=== PATIENT | female | born 1945 | race African-American/Black ===

== ENCOUNTER 2016-12-16 08:36 | Inpatient (IN) ==
--- NOTE | 2016-12-16 09:41 | Emergency Department Note ---
Teodoro Randall Manpreet, am scribing for, and in the presence of, Singh Qureshi MD 09: 34. Kiera Randall James D, MD, personally performed the services described in this documentation, ascribed by Michael Valerio in my presence, and it is both accurate and complete 940 . Arrival - Arrival Chief Complaint: Weakness Stated Complaint: weakness ED Nursing Triage Note: Brought in per EMS from home with c/o generalized weakness onset this am. c/o left sided headache "for awhile". Daughter reports patient was unable to stand up at home this am. c/o left sided weakness-- chronic per daughter due to history of CVA. AAO x3, answering all questions appropriately. Mode of Arrival: Stretcher Limitations: No Limitations Source: Family, Old Records Reviewed, RN Notes Reviewed Time Seen by Provider: 12/16/16 08:59 - History of Present Illness HPI Narrative: Pt is a 71 y/o female with hx of Pacemaker, CVA, and TIA who presents to the ED c/o generalized weakness onset this am and left sided headache for awhile. Pt is accompanied by her daughter who states the PT was unable to stand up this morning, but is in her normal state. Pt takes her HTN medications and is UTD. The daughter states they received a saline solution on the for her sinuses because she thought her WALLER was due to sinuses. Pt saw Dr. López last week for her sinuses and was planning to see Dr. Daniel Mcgrath, her PCP, today, but onset of symptoms prompted them to the ED. No other complaints reported in the ED. Onset (ago): hour(s) Consistency: constant Severity: moderate Date of Last Menstrual Period: PM Allergies/Adverse Reactions: Allergies Allergy/AdvReac Type Severity Reaction Status Date / Time Penicillins Allergy ITCHING Verified 12/16/16 08:47 Home Medications: Home Medications Medication Instructions Recorded Confirmed Type Atorvastatin [Lipitor] 20 mg PO BEDTIME 04/25/15 12/12/16 History Cetirizine Tab [ZyrTEC Tab] 10 mg PO DAILY 04/25/15 12/12/16 History Cyanocobalamin (Vitamin B-12) 1,000 mcg IM Q30D 04/25/15 12/12/16 History [Liquid B12] Furosemide Tab [Lasix Tab] 40 mg PO BID 04/25/15 12/12/16 History HYDROcodone/ACETAMIN 5-325 [[place] 1 tablet PO Q6H PRN 04/25/15 12/12/16 History 5-325] Magnesium Oxide [Magox 400] 400 mg PO DAILY 04/25/15 12/12/16 History Montelukast Tab [Singulair Tab] 10 mg PO BEDTIME 04/25/15 12/12/16 History Omeprazole 20 mg PO DAILY 04/25/15 12/12/16 History Sotalol HCl [Betapace AF] 160 mg PO BID 04/25/15 12/12/16 History Warfarin [Coumadin] 2 mg PO SUTUWETHSA 04/25/15 12/12/16 History dilTIAZem HCl [Diltiazem HCl] 60 mg PO TID W/MEALS 04/25/15 12/12/16 History metOLazone [Metolazone] 2.5 mg PO MOFR 04/25/15 12/12/16 History predniSONE [[place]] 1 mg PO TID 04/25/15 12/12/16 History sulfaSALAzine [Sulfasalazine] 1,000 mg PO BID 04/25/15 12/12/16 History Adalimumab [Humira Pen] 40 mg SUBCUT Q14D 04/22/16 12/12/16 History Calcium (Carb)/Vit D 500-200 1 tablet PO DAILY 04/22/16 12/12/16 History [Oscal 500 + D] Fluticasone 50 Mcg Nasal [place] 1 spray BOTH NARES DAILY PRN 04/22/16 12/12/16 History [Flonase Nasal [place]] Lisinopril 10 mg PO DAILY 04/22/16 12/12/16 History Potassium Chloride Cap/Tab [K Dur] 60 meq PO BID 04/22/16 12/12/16 History Warfarin [Coumadin] 3 mg PO MOFR 04/22/16 12/12/16 History levETIRAcetam [Levetiracetam ER] 750 mg PO BID 04/22/16 12/12/16 History Carvedilol [Coreg] 6.25 mg PO DAILY 10/30/16 12/12/16 History cloNIDine HCl [Clonidine HCl] 0.1 mg PO BEDTIME 10/30/16 12/12/16 History Acetaminophen Tab [Tylenol Tab] 650 mg PO Q6H PRN #0 tablet 11/04/16 12/12/16 Rx Clindamycin Cap [Cleocin Cap] 300 mg PO Q8HR #21 capsule 11/04/16 12/12/16 Rx Donepezil [Aricept] 5 mg PO DAILY #30 tablet 11/04/16 12/12/16 Rx Review of System - Review of System 12 point system: reviewed and no additional remarkable complaints except as stated - Review of System Constitutional: Present: as per HPI. Absent: fever Gastrointestinal: Present: as per HPI. Absent: abdominal pain, nausea, vomiting , diarrhea Genitourinary female: Present: as per HPI. Absent: dysuria Musculoskeletal: Present: as per HPI, arm pain, leg pain, other (Left sided arm and leg numbness ) Skin: Present: as per HPI. Absent: rash, lesions Neurological: Present: as per HPI, numbness, other (Left sided headpain) Medical,Surgical,& Family Hx - Medical History Cardio: History of: Hypertension, Pacemaker Neurology: History of: Cerebrovascular Accident, Seizures, TIA Rheumatology: History of;: Rheumatoid Arthritis Respiratory: History of: Asthma Gastrointestinal: History of: GERD Hematology: History of: Blood Transfusion Reaction Reproductive: History of: Breast Cancer (L MASTECTOMY 1981) Other: History of: Cancer - Surgical History Reproductive Surgeries: Surgical HX of;: Breast Surgery, Hysterectomy - Social History Smoking Status: Never smoker Frequency of Alcohol Use: None Type of Drug Use: None Exam Vital Signs: Vital Signs Temperature 96.8 F L 12/16/16 09:05 Pulse Rate 79 12/16/16 09:05 Respiratory Rate 18 12/16/16 09:05 Blood Pressure 142/101 12/16/16 09:05 O2 Sat by Pulse Oximetry 95 12/16/16 08:36 GENERAL: This is a chronically ill-appearing black female in no apparent distress. VITAL SIGNS: Reviewed HEENT: Head is atraumatic and normocephalic. Pupils are equal round react to light. Extraocular movements are intact. Oropharynx is benign with moist mucous membranes. NECK: Neck is soft and supple without tenderness. There are no masses. There is no lymphadenopathy. LUNGS: Lungs are clear to auscultation. Chest rises symmetrically. There is no chest wall tenderness. CV: Heart is regular rate and rhythm without murmurs rubs or gallops. ABDOMEN: Abdomen is soft, nontender to palpation. There are no abdominal abnormal masses palpated. There is no organomegaly. Bowel sounds are present and active. SKIN: Skin is warm and dry. No rash. EXTREMITIES: Patient has full range of motion without tenderness. There is no pedal edema. NEUROLOGIC: Awake, alert, disoriented to time. Patient is oriented to person and situation. Cranial nerves II through XII are intact. Motor is 4 over 5 in all extremities bilaterally. Course - Consultations Consultation #1: Discussed with Dr. Daniel Mcgrath. Patient will be admitted to his service. Initial orders written for him. He will assume care upon patient's arrival to the [facility]. Time: 10:15 Results - Labs CBC & BMP: 12/16/16 08:56 Lab Results: I have reviewed the patients labs - Diagnostic Findings Procedure: CT: image reviewed by me (CT head: Interval development of left thalamic infarct.) Disposition Clinical Impression: Headache, Stroke, Dementia Case discussed with: patient, patient's family Disposition: Still a Patient Condition: Stable Time of Disposition: 10:15
--- NOTE | 2016-12-16 09:53 | CT Report ---
CT head/brain wo con Indication: Headache. Comparison: CT head 12/12/2016. Technique: CT of the brain was performed without administration of intravenous contrast. The CT examination was performed using one or more of the following dose reduction techniques: Automatic exposure control, adjustment of the mA and kV according to patient size, use of acute or iterative reconstruction techniques. Findings: Remote infarction of the right temporoparietal white matter and cortex has changed little since comparison study. Additional remote infarction involving the watershed area of the anterior left frontal lobe is stable. Small lacunar infarction within the right thalamus is present. This has slightly increased in size since comparison study. Lateral areas of periventricular white matter hypoattenuation compatible with microvascular ischemia are present. The basal cisterns are patent. No significant abnormality is demonstrated to involve the posterior fossa or cerebellum. Orbits and globes demonstrate no evidence of significant pathology. Air-fluid levels are noted within the maxillary sinuses and multiple ethmoid air cells are completely opacified with fluid. The right sphenoid sinus has moderate mucoperiosteal thickening. The frontal sinuses are hypoaerated. No significant abnormality is demonstrated to involve the mastoid air cells. The calvarium and overlying soft tissues demonstrate no evidence of acute pathology. Impression: 1. Interval development of left-sided thalamic infarction versus evolution of infarction is present. 2. Remote right temporoparietal infarction and left frontal watershed infarction appears stable. 3. Pansinusitis. 12/16/2016 9:49 AM PROCEDURE INTERPRETED AT [facility] DEPARTMENT OF RADIOLOGY Final Report Signed by: Dr. Chris Lopez
[2016-12-16 10:21] LABS: Basophils % 0.5 % (0.0-0.8); Eosinophils # 0.4 10*3/uL (0.0-0.87); Eosinophils % 5.5 % (0.00-10.9); Hematocrit 42.9 VOL% (35.7-47.0); Hemoglobin 13.2 GM/DL (12.0-16.0); Immature Granulocytes % 0.3 %; Immature Granulocytes Absolute 0.02 #; Lymphocytes # 3.6 10*3/uL (1.4-4.0); Lymphocytes % 46.3 % (21.3-54.2); Mean Corpuscular HGB Conc 30.8 GM/DL (32-36); Mean Corpuscular Hemoglobin 28 PG (27-34); Mean Corpuscular Volume 89.4 FL (87-102); Mean Platelet Volume 11.1 FL (9.6-12.0); Monocytes % 12.1 % (1.7-12.7); Neutrophils # 2.8 10*3/uL (1.4-7.4); Neutrophils % 35.3 % (38.7-73.9); Platelet Count 216 T/CUMM (130-400); Red Cell Distribution Width 14.1 % (9.3-17.3); White Blood Count 7.8 T/CUMM (4-12)
[2016-12-16] MEDS ORDERED: ASPIRIN 300 MG SUPP RECTAL STA (10:26)
[2016-12-16 10:27] LABS: Partial Thromboplastin Time 29.2 SECS (0-40)
[2016-12-16 10:32] LABS: INR 2.4; PT Patient Result 26.3 SECS
[2016-12-16] MEDS ORDERED: ASPIRIN 300 MG SUPP RECTAL ONE (10:33)
[2016-12-16 11:17] LABS: Hypochromasia 1+
[2016-12-16 11:18] LABS: Acanthocytes Few; Burr Cells Slight; Elliptocytes Few; Microcytosis Slight; Platelet Estimate Adequate
[2016-12-16 12:05] LABS: Albumin 3.7 G/DL (3.4-5.0); Bilirubin,Total 0.5 MG/DL (0.2-1.0); Calcium 8.8 MG/DL (8.5-10.1); Osmolality,Calculated 279.1 MOS/KG (273-304); Potassium 3.8 MMOL/L (3.5-5.1); Total Protein 7.3 G/DL (6.4-8.3)
[2016-12-16] MEDS ORDERED: ENOXAPARIN 40 MG/0.4 ML SYRINGE SUBCUT SCH (12:32)
[2016-12-16] MEDS ORDERED: ONDANSETRON 4 MG/2 ML VIAL IV PRN (12:32)
[2016-12-16] MEDS: SODIUM CHLORIDE 0.9% 1,000 ML IV SCH ×2 (12:40→23:56)
[2016-12-16] MEDS ORDERED: FLUTICASONE 50 MCG NASAL SPRAY 16 GM BOTTLE BOTH NARES PRN (17:07)
--- NOTE | 2016-12-16 17:16 | Family Practice History&Phys ---
Assessment and Plan (1) Intractable headache Status: Acute Assessment and plan: 12/16/2016: A CRP and sed rate have been ordered. She does have a history of recent sinusitis and I am going to place her on IV Levaquin. Current Visit: Yes (2) Abnormal CT of brain Status: Acute Assessment and plan: 12/16/2016: We will consult Dr. Tenorio. The changes described Dr. Lopez were not readily apparent to me and she has no lateralizing signs or symptoms that I can elicit. Current Visit: Yes History of Present Illness Chief complaint: Persistent headache History of present illness: Ms. Zamora is a 71 year old female Patient is a 71-year-old black female brought to emergency room with complaint of left temporal headache. This apparently been going on for about a week now. She seen in the emergency room earlier with same complaint. CT at that time showed no change. Patient had repeat CT today that showed evidence of left thalamic infarct. Patient denies any lateralizing weakness or paresthesias. She is having no speech difficulty has not noticed any change in her vision. She denies any fever or chills associated with her headaches. She does have a history of sinusitis and was recently seen by Dr. Cedric López. She denies any purulent sinus drainage. She has not had any fever chills that she is aware of. She is a very poor historian Home Medications Medication Instructions Recorded Confirmed Type Atorvastatin [Lipitor] 20 mg PO BEDTIME 04/25/15 12/16/16 History Cetirizine Tab [ZyrTEC Tab] 10 mg PO DAILY 04/25/15 12/16/16 History Cyanocobalamin (Vitamin B-12) 1,000 mcg IM Q30D 04/25/15 12/16/16 History [Liquid B12] Furosemide Tab [Lasix Tab] 40 mg PO BID 04/25/15 12/16/16 History HYDROcodone/ACETAMIN 5-325 [[place] 1 tablet PO Q6H PRN 04/25/15 12/16/16 History 5-325] Magnesium Oxide [Magox 400] 400 mg PO DAILY 04/25/15 12/16/16 History Montelukast Tab [Singulair Tab] 10 mg PO BEDTIME 04/25/15 12/16/16 History Omeprazole 20 mg PO DAILY 04/25/15 12/16/16 History Sotalol HCl [Betapace AF] 160 mg PO BID 04/25/15 12/16/16 History Warfarin [Coumadin] 2 mg PO SUTUWETHFRSA 04/25/15 12/16/16 History dilTIAZem HCl [Diltiazem HCl] 60 mg PO ACHS 04/25/15 12/16/16 History predniSONE [[place]] 3 mg PO 1200 04/25/15 12/16/16 History sulfaSALAzine [Sulfasalazine] 1,000 mg PO BID 04/25/15 12/16/16 History Adalimumab [Humira Pen] 40 mg SUBCUT Q14D 04/22/16 12/16/16 History Calcium (Carb)/Vit D 500-200 1 tablet PO DAILY 04/22/16 12/16/16 History [Oscal 500 + D] Fluticasone 50 Mcg Nasal [place] 1 spray BOTH NARES DAILY PRN 04/22/16 12/16/16 History [Flonase Nasal [place]] Lisinopril 10 mg PO DAILY 04/22/16 12/16/16 History Potassium Chloride Cap/Tab [K Dur] 60 meq PO BID 04/22/16 12/16/16 History levETIRAcetam [Levetiracetam ER] 750 mg PO BID 04/22/16 12/16/16 History Carvedilol [Coreg] 6.25 mg PO DAILY 10/30/16 12/16/16 History cloNIDine HCl [Clonidine HCl] 0.1 mg PO BEDTIME 10/30/16 12/16/16 History Acetaminophen Tab [Tylenol Tab] 650 mg PO Q6H PRN #0 tablet 11/04/16 12/16/16 Rx Warfarin Sodium 1 mg PO MO 12/16/16 12/16/16 History Allergies Allergy/AdvReac Type Severity Reaction Status Date / Time Penicillins Allergy ITCHING Verified 12/16/16 08:47 - Constitutional Constitutional: Present: fatigue. Absent: chills, fever(s), weakness, weight gain - EENT Eyes: Absent: blurry vision, loss of vision Ears: Absent: decreased hearing, ear pain Nose, mouth and throat: Absent: hoarseness, nasal congestion, sinus pressure, sore throat - Cardiovascular Cardiovascular: Absent: chest pain at rest, chest pain with activity, orthopnea , palpitations, PND - Respiratory Respiratory: Absent: cough, dyspnea, wheezing - Gastrointestinal Gastrointestinal: Absent: abdominal pain, diarrhea, dyspepsia, dysphagia, nausea , vomiting - Genitourinary Genitourinary: Absent: difficulty urinating, urinary frequency, urinary hesitancy - Musculoskeletal Musculoskeletal: Absent: arthralgias, back pain - Neurological Neurological: Present: headache(s). Absent: abnormal gait, abnormal speech, confusion, focal weakness, numbness, paresthesias - Psychiatric Psychiatric: Absent: anxiety, confusion, depression - Endocrine Endocrine: Absent: fatigue, polydipsia, polyphagia - Hematologic/Lymphatic Hematologic/Lymphatic: Absent: easy bleeding, easy bruising Medical,Surgical,& Family Hx - Medical History Cardio: History of: CHF, Hypertension, Pacemaker Neurology: History of: Cerebrovascular Accident, Seizures, TIA HEENT: History of: Eye Problem (cataracts) Rheumatology: History of;: Rheumatoid Arthritis Respiratory: History of: Asthma, COPD Genitourinary: History of: Recurring Urinary Tract Infections Gastrointestinal: History of: GERD Hematology: History of: Blood Transfusion Reaction Reproductive: History of: Breast Cancer (L MASTECTOMY 1981) Other: History of: Cancer - Surgical History HEENT Surgeries: Surgical HX of: Eye Surgery (cataract removal) Abdominal Surgeries: Patient denies: Abdominal Surgery Reproductive Surgeries: Surgical HX of;: Breast Surgery, Hysterectomy Orthopedic Surgeries: Surgical HX of;: Total Knee Replacement (left knee) - Family History Family History: Reports;: Family Cancer (mother-brain), Family Hypertension ( mother, sister, brother), Family Stroke (mother) Denies;: Family Diabetes, Family Heart Disease - Social History Smoking Status: Never smoker Frequency of Alcohol Use: None Type of Drug Use: None Exam - Constitutional Exam: General: Objective patient is a well-developed black female in no acute distress. She is a poor historian but this is not a new finding. She is sleeping soundly when I went in to see her. She appears to be in no discomfort whatsoever. HEENT: Pupils equal and reactive to light. Patent nares and airway Neck: No meningismus, adenopathy, thyromegaly. There are no auscultated carotid bruits. Cardiovascular: Regular rhythm. No murmurs or gallops Chest: Clear to auscultation without rales rhonchi wheezes. Abdomen: Soft nontender to palpation No masses, rebound, guarding or tenderness. Neuro: Cranial nerves intact and DTRs and strength symmetric in all extremities. Dermatologic: No evidence of abnormal lesions or masses. Musculoskeletal: There is no joint swelling or tenderness or deformity. Extremities: There is no calf swelling or tenderness. Results - Labs CBC & BMP: 12/16/16 08:56 12/16/16 11:03 Lab Results: I have reviewed the past 24 hour labs - Diagnostic Findings Procedure: CT: report reviewed by me (Left thalamic infarct noted by radiology)
[2016-12-16] MEDS: LEVOFLOXACIN INJ 500 MG in PREMIX 1 EACH IV SCH (17:40)
[2016-12-16] MEDS: WARFARIN 2 MG TABLET PO SCH (17:40)
[2016-12-16] MEDS: MONTELUKAST 10 MG TABLET PO SCH (20:53)
[2016-12-16] MEDS: ATORVASTATIN 20 MG TABLET PO SCH (20:53)
[2016-12-16] MEDS: FUROSEMIDE 40 MG TABLET PO SCH (20:53)
[2016-12-16] MEDS: ACETAMINOPHEN 325 MG TABLET PO PRN (20:53)
[2016-12-16] MEDS: POTASSIUM CHLORIDE 20 MEQ TABLET PO SCH (20:53)
[2016-12-16] MEDS: sulfaSALAzine 500 MG TABLET PO SCH (20:54)
[2016-12-16] MEDS: DILTIAZEM 60 MG TABLET PO SCH (20:54)
[2016-12-16] MEDS: SOTALOL 80 MG TABLET PO SCH (20:54)
[2016-12-16] MEDS: DOCUSATE SODIUM 100 MG CAPSULE PO SCH (20:54)
[2016-12-16] MEDS: cloNIDine 0.1 MG TABLET PO SCH (20:54)
[2016-12-16] MEDS: levETIRAcetam 250 MG TABLET PO SCH (20:55)
[2016-12-17] MEDS: DILTIAZEM 60 MG TABLET PO SCH ×4 (07:45→22:28)
--- NOTE | 2016-12-17 07:47 | Family Practice Progress Note ---
Family Practice - PN: Subj Interval history: Patient continues to complain of headache this morning. I did place her on Levaquin last night also repeated her sed rate which was basically normal. She is not having any lateralizing signs or symptoms on admission or now either. There is no history of fever or chills and she is not having any sinus drainage. She does have sinus disease and I am going to ask Dr. López to see her again. Exam (Progress Note) - Constitutional Vitals: Period Temp Pulse Resp BP Sys/Tavera Pulse Ox Last 24 Hr 97.6 F-98.1 F 63-81 18-23 107-142/64-84 94-100 Exam: Objectively well-developed black female in no acute distress. She is able answer all questions appropriately. She is coherent and at her normal sensorium. Cardiovascular: Heart rates are regular without murmurs or gallops Respiratory: Lungs clear to auscultation bilaterally. Abdomen: Abdomen soft and nontender to palpation. Neuro: Patient has equal strength in all extremities. She has slight left facial weakness which is chronic. Results - Labs CBC & BMP: 12/16/16 08:56 12/16/16 11:03 Lab Results: I have reviewed the past 24 hour labs Assessment and Plan (1) Intractable headache Status: Acute Assessment and plan: 12/16/2016: A CRP and sed rate have been ordered. She does have a history of recent sinusitis and I am going to place her on IV Levaquin. 12/17/2016: I am going to consult Dr. López, Dr. Tenorio is also been consulted. Current Visit: Yes (2) Abnormal CT of brain Status: Acute Assessment and plan: 12/16/2016: We will consult Dr. Tenorio. The changes described Dr. Lopez were not readily apparent to me and she has no lateralizing signs or symptoms that I can elicit. Current Visit: Yes Quality Measures - Stroke Onset of Symptoms Date: 12/16/16 Onset of Symptoms Time: 05:30
[2016-12-17] MEDS: SOTALOL 80 MG TABLET PO SCH ×2 (08:53→22:28)
[2016-12-17] MEDS: POTASSIUM CHLORIDE 20 MEQ TABLET PO SCH ×2 (08:53→22:37)
[2016-12-17] MEDS: sulfaSALAzine 500 MG TABLET PO SCH ×2 (08:53→22:27)
[2016-12-17] MEDS: levETIRAcetam 250 MG TABLET PO SCH ×2 (08:53→22:29)
[2016-12-17] MEDS: CELECOXIB 200 MG CAPSULE PO SCH (08:53)
[2016-12-17] MEDS: CARVEDILOL 6.25 MG TABLET PO SCH (08:54)
[2016-12-17] MEDS: CETIRIZINE 10 MG TABLET PO SCH (08:54)
[2016-12-17] MEDS: LISINOPRIL 10 MG TABLET PO SCH (08:54)
[2016-12-17] MEDS: PANTOPRAZOLE 40 MG TABLET PO SCH (08:54)
[2016-12-17] MEDS: CALCIUM (CARBONATE)/VITAMIN D 500 MG-200 UNIT TABLET PO SCH (08:54)
[2016-12-17] MEDS: MAGNESIUM OXIDE 400 MG TABLET PO SCH (08:54)
[2016-12-17] MEDS: DOCUSATE SODIUM 100 MG CAPSULE PO SCH ×2 (08:54→22:29)
[2016-12-17] MEDS: FUROSEMIDE 40 MG TABLET PO SCH ×2 (08:54→22:28)
--- NOTE | 2016-12-17 09:31 | Neurology Consult Note ---
History of Present Illness History of present illness: Patient is a 71-year-old -[place] lady with past medical history significant for dementia brought to emergency room with complaint of left temporal and frontal headache. This apparently been going on for about a week now. She seen in the emergency room earlier with same complaint. CT at that time showed no change. Patient had repeat CT that showed evidence of left thalamic infarct. Patient denies any lateralizing weakness or paresthesias. She is having no speech difficulty has not noticed any change in her vision. She denies any fever or chills associated with her headaches. She does have a history of sinusitis and was recently seen by Dr. Cedric López. She denies any purulent sinus drainage. She has not had any fever chills that she is aware of. She is a very poor historian. She was started on Aricept at one point which was stopped because of her heart condition. Patient has had normal ESR and CRP. Home Medications Medication Instructions Recorded Confirmed Type Atorvastatin [Lipitor] 20 mg PO BEDTIME 04/25/15 12/16/16 History Cetirizine Tab [ZyrTEC Tab] 10 mg PO DAILY 04/25/15 12/16/16 History Cyanocobalamin (Vitamin B-12) 1,000 mcg IM Q30D 04/25/15 12/16/16 History [Liquid B12] Furosemide Tab [Lasix Tab] 40 mg PO BID 04/25/15 12/16/16 History HYDROcodone/ACETAMIN 5-325 [[place] 1 tablet PO Q6H PRN 04/25/15 12/16/16 History 5-325] Magnesium Oxide [Magox 400] 400 mg PO DAILY 04/25/15 12/16/16 History Montelukast Tab [Singulair Tab] 10 mg PO BEDTIME 04/25/15 12/16/16 History Omeprazole 20 mg PO DAILY 04/25/15 12/16/16 History Sotalol HCl [Betapace AF] 160 mg PO BID 04/25/15 12/16/16 History Warfarin [Coumadin] 2 mg PO SUTUWETHFRSA 04/25/15 12/16/16 History dilTIAZem HCl [Diltiazem HCl] 60 mg PO ACHS 04/25/15 12/16/16 History predniSONE [[place]] 3 mg PO 1200 04/25/15 12/16/16 History sulfaSALAzine [Sulfasalazine] 1,000 mg PO BID 04/25/15 12/16/16 History Adalimumab [Humira Pen] 40 mg SUBCUT Q14D 04/22/16 12/16/16 History Calcium (Carb)/Vit D 500-200 1 tablet PO DAILY 04/22/16 12/16/16 History [Oscal 500 + D] Fluticasone 50 Mcg Nasal [place] 1 spray BOTH NARES DAILY PRN 04/22/16 12/16/16 History [Flonase Nasal [place]] Lisinopril 10 mg PO DAILY 04/22/16 12/16/16 History Potassium Chloride Cap/Tab [K Dur] 60 meq PO BID 04/22/16 12/16/16 History levETIRAcetam [Levetiracetam ER] 750 mg PO BID 04/22/16 12/16/16 History Carvedilol [Coreg] 6.25 mg PO DAILY 10/30/16 12/16/16 History cloNIDine HCl [Clonidine HCl] 0.1 mg PO BEDTIME 10/30/16 12/16/16 History Acetaminophen Tab [Tylenol Tab] 650 mg PO Q6H PRN #0 tablet 11/04/16 12/16/16 Rx Warfarin Sodium 1 mg PO MO 12/16/16 12/16/16 History Allergies Allergy/AdvReac Type Severity Reaction Status Date / Time Penicillins Allergy ITCHING Verified 12/16/16 08:47 ROS unobtainable: due to mental status Medical,Surgical,& Family Hx - Medical History Cardio: History of: CHF, Hypertension, Pacemaker Neurology: History of: Cerebrovascular Accident, Seizures, TIA HEENT: History of: Eye Problem (cataracts) Rheumatology: History of;: Rheumatoid Arthritis Respiratory: History of: Asthma, COPD Genitourinary: History of: Recurring Urinary Tract Infections Gastrointestinal: History of: GERD Hematology: History of: Blood Transfusion Reaction Reproductive: History of: Breast Cancer (L MASTECTOMY 1981) Other: History of: Cancer - Surgical History HEENT Surgeries: Surgical HX of: Eye Surgery (cataract removal) Abdominal Surgeries: Patient denies: Abdominal Surgery Reproductive Surgeries: Surgical HX of;: Breast Surgery, Hysterectomy Orthopedic Surgeries: Surgical HX of;: Total Knee Replacement (left knee) - Family History Family History: Reports;: Family Cancer (mother-brain), Family Hypertension ( mother, sister, brother), Family Stroke (mother) Denies;: Family Diabetes, Family Heart Disease - Social History Smoking Status: Never smoker Frequency of Alcohol Use: None Type of Drug Use: None Exam - Constitutional Vitals: Period Temp Pulse Resp BP Sys/Tavera Pulse Ox Last 24 Hr 97.5 F-98.1 F 63-83 18-23 107-142/64-84 94-100 Exam: GENERAL: Patient is in no acute distress. NECK: Neck is supple. There is no JVD. No carotid bruits present. No thyroid masses. CVS: First and second heart sounds are normal. There is no S3 present. Regular rate and rhythm. RESPIRATORY: Lungs are clear to auscultation without any rales or rhonchi. ABDOMEN: Soft and non-tender. Bowel sounds are present. There is no hepatosplenomegaly. EXT: There is no palpable edema. Peripheral pulses are present. Skin: No rashes Central Nervous system: General: Alert, awake Speech: Fluent Comprehension: Intact and normal Facial expressions: Normal Cranial Nerves: CN1/Olfactory: Normal CN II/ Optic: Normal, Visual Daniels unreliable CN III, and : YAMIL & EOMI CN V: Normal & intact CN VII: face is symmetric CNVIII: Normal CN XI/X/XI/XII: Intact and Normal Motor: Bulk and Tone is normal. Strength in the right 3-4/5 Strength in the left 3-4/5 Sensory: Grossly intact for all the modalities of PP, LT and temp sense Reflexes: 1+ and symmetrical Cerebellar function: Normal finger to nose testing. Toes: Equivocal Gait: Not tested Results - Labs CBC & BMP: 12/16/16 08:56 12/16/16 11:03 Assessment and Plan (1) New onset of headaches Status: Acute Assessment and plan: I am not sure the reliability of the history of headache/pain due to the presence of underlying dementia Geodon 20 mg IM one dose now LP cannot be done due to therapeutic INR at this point Continue IV Levaquin We will watch her closely Current Visit: Yes
[2016-12-17] MEDS ORDERED: ZIPRASIDONE 20 MG/1 ML VIAL IM ONE ×2 (09:33→10:00)
[2016-12-17] MEDS: predniSONE 1 MG TABLET PO SCH (11:38)
[2016-12-17] MEDS: SODIUM CHLORIDE 0.9% 1,000 ML IV SCH ×2 (14:37→23:50)
--- NOTE | 2016-12-17 16:10 | Consultation ---
Assessment and Plan - Time spent with patient Time spent with patient: Less than 30 minutes (1) Sinusitis Status: Chronic Assessment and plan: I recommend continuing current treatment as she notes some improvement. I would like to see her next week after discharge after she is over this acute exacerbation as we will likely need to look into at least a minimal sinus surgery such as a balloon sinus plasty with ethmoidectomy to help her underlying symptoms. She will need medical clearance for this which I will asked Dr. Mcgrath if he feels she is able to have surgery. I do not think that she needs surgery during this acute exacerbation but we will try to get it on the schedule within the next few weeks so that we do not have continued recurrences. Thank you very much for this consult and please notify me if there is any additional questions I will try to continue to follow this patient during her stay. Current Visit: No Qualifiers: Sinusitis location: pansinusitis Chronicity: chronic Qualified Code(s): J32.4 - Chronic pansinusitis (2) Trigeminal neuralgia pain Status: Acute Current Visit: Yes (3) Intractable headache Status: Acute Current Visit: Yes History of Present Illness - Data of Consult Patient: new to practice Consult date: 12/17/16 Requesting Physician: Daniel Mcgrath - Consult Narrative Reason for consult: Chronic sinusitis History of present illness: Ms. Zamora is a 71 year old female with a history of chronic sinusitis admitted for an exacerbation of her facial pain and headache with nasal discharge. She was started on appropriate antibiotic Levaquin and upon evaluation today states that she is feeling better. ENT is consulted for evaluation and treatment CC: Daniel Mcgrath MD - Home Medications and Allergies Home Medications: Home Medications Medication Instructions Recorded Confirmed Type Atorvastatin [Lipitor] 20 mg PO BEDTIME 04/25/15 12/16/16 History Cetirizine Tab [ZyrTEC Tab] 10 mg PO DAILY 04/25/15 12/16/16 History Cyanocobalamin (Vitamin B-12) 1,000 mcg IM Q30D 04/25/15 12/16/16 History [Liquid B12] Furosemide Tab [Lasix Tab] 40 mg PO BID 04/25/15 12/16/16 History HYDROcodone/ACETAMIN 5-325 [[place] 1 tablet PO Q6H PRN 04/25/15 12/16/16 History 5-325] Magnesium Oxide [Magox 400] 400 mg PO DAILY 04/25/15 12/16/16 History Montelukast Tab [Singulair Tab] 10 mg PO BEDTIME 04/25/15 12/16/16 History Omeprazole 20 mg PO DAILY 04/25/15 12/16/16 History Sotalol HCl [Betapace AF] 160 mg PO BID 04/25/15 12/16/16 History Warfarin [Coumadin] 2 mg PO SUTUWETHFRSA 04/25/15 12/16/16 History dilTIAZem HCl [Diltiazem HCl] 60 mg PO ACHS 04/25/15 12/16/16 History predniSONE [[place]] 3 mg PO 1200 04/25/15 12/16/16 History sulfaSALAzine [Sulfasalazine] 1,000 mg PO BID 04/25/15 12/16/16 History Adalimumab [Humira Pen] 40 mg SUBCUT Q14D 04/22/16 12/16/16 History Calcium (Carb)/Vit D 500-200 1 tablet PO DAILY 04/22/16 12/16/16 History [Oscal 500 + D] Fluticasone 50 Mcg Nasal [place] 1 spray BOTH NARES DAILY PRN 04/22/16 12/16/16 History [Flonase Nasal [place]] Lisinopril 10 mg PO DAILY 04/22/16 12/16/16 History Potassium Chloride Cap/Tab [K Dur] 60 meq PO BID 04/22/16 12/16/16 History levETIRAcetam [Levetiracetam ER] 750 mg PO BID 04/22/16 12/16/16 History Carvedilol [Coreg] 6.25 mg PO DAILY 10/30/16 12/16/16 History cloNIDine HCl [Clonidine HCl] 0.1 mg PO BEDTIME 10/30/16 12/16/16 History Acetaminophen Tab [Tylenol Tab] 650 mg PO Q6H PRN #0 tablet 11/04/16 12/16/16 Rx Warfarin Sodium 1 mg PO MO 12/16/16 12/16/16 History Allergies/Adverse Reactions: Allergies Allergy/AdvReac Type Severity Reaction Status Date / Time Penicillins Allergy ITCHING Verified 12/16/16 08:47 12 point system: reviewed and no additional remarkable complaints except as stated Medical,Surgical,& Family Hx - Medical History Cardio: History of: CHF, Hypertension, Pacemaker Neurology: History of: Cerebrovascular Accident, Seizures, TIA HEENT: History of: Eye Problem (cataracts) Rheumatology: History of;: Rheumatoid Arthritis Respiratory: History of: Asthma, COPD Genitourinary: History of: Recurring Urinary Tract Infections Gastrointestinal: History of: GERD Hematology: History of: Blood Transfusion Reaction Reproductive: History of: Breast Cancer (L MASTECTOMY 1981) Other: History of: Cancer - Surgical History HEENT Surgeries: Surgical HX of: Eye Surgery (cataract removal) Abdominal Surgeries: Patient denies: Abdominal Surgery Reproductive Surgeries: Surgical HX of;: Breast Surgery, Hysterectomy Orthopedic Surgeries: Surgical HX of;: Total Knee Replacement (left knee) - Family History Family History: Reports;: Family Cancer (mother-brain), Family Hypertension ( mother, sister, brother), Family Stroke (mother) Denies;: Family Diabetes, Family Heart Disease - Social History Smoking Status: Never smoker Frequency of Alcohol Use: None Type of Drug Use: None Exam - Constitutional Vitals: Period Temp Pulse Resp BP Sys/Tavera Pulse Ox Last 24 Hr 97.5 F-97.9 F 63-83 18-23 107-145/64-88 94-100 General appearance: normal weight, no acute distress - Head Head exam: Present: normocephalic, other (Mild tenderness to facial palpation) - Eye Eye exam: Present: EOMI Pupils: Present: YAMIL - ENT ENT exam: Present: normal exam, normal external ear exam, normal oropharynx - Neck Neck exam: Present: normal inspection - Respiratory Respiratory exam: Present: other (No shortness of breath or difficulty breathing ) - GI/Abdominal GI/Abdominal exam: Present: soft (Soft with no gross organomegaly) - Extremities Exam Extremities exam: Present: normal inspection - Neurological Exam Neurological exam: Present: alert, oriented X3 - Psychiatric Psychiatric exam: Present: normal affect, normal mood - Skin Skin exam: Present: normal color, warm Results - Labs CBC & BMP: 12/16/16 08:56 12/16/16 11:03 Lab Results: I have reviewed the past 24 hour labs (No leukocytosis consistent with a chronic sinusitis) - Diagnostic Findings Procedure: CT: pending, image reviewed by me, report reviewed by me (Sinus CT reviewed revealing pansinusitis consistent with chronic sinusitis) Quality Measures - Stroke Onset of Symptoms Date: 12/16/16 Onset of Symptoms Time: 05:30
[2016-12-17] MEDS: WARFARIN 2 MG TABLET PO SCH (17:21)
[2016-12-17] MEDS: ATORVASTATIN 20 MG TABLET PO SCH (22:28)
[2016-12-17] MEDS: LEVOFLOXACIN INJ 500 MG in PREMIX 1 EACH IV SCH (22:29)
[2016-12-17] MEDS: MONTELUKAST 10 MG TABLET PO SCH (22:29)
[2016-12-17] MEDS: cloNIDine 0.1 MG TABLET PO SCH (22:29)
[2016-12-18] MEDS: POTASSIUM CHLORIDE 20 MEQ TABLET PO SCH ×2 (08:47→21:14)
[2016-12-18] MEDS: CELECOXIB 200 MG CAPSULE PO SCH (08:48)
[2016-12-18] MEDS: LISINOPRIL 10 MG TABLET PO SCH (08:48)
[2016-12-18] MEDS: levETIRAcetam 250 MG TABLET PO SCH ×2 (08:48→21:16)
[2016-12-18] MEDS: MAGNESIUM OXIDE 400 MG TABLET PO SCH (08:48)
[2016-12-18] MEDS: PANTOPRAZOLE 40 MG TABLET PO SCH (08:48)
[2016-12-18] MEDS: CETIRIZINE 10 MG TABLET PO SCH (08:48)
[2016-12-18] MEDS: CALCIUM (CARBONATE)/VITAMIN D 500 MG-200 UNIT TABLET PO SCH (08:48)
[2016-12-18] MEDS: sulfaSALAzine 500 MG TABLET PO SCH ×2 (08:48→21:15)
[2016-12-18] MEDS: FUROSEMIDE 40 MG TABLET PO SCH ×2 (08:48→21:16)
[2016-12-18] MEDS: DOCUSATE SODIUM 100 MG CAPSULE PO SCH ×2 (08:48→21:16)
[2016-12-18] MEDS: CARVEDILOL 6.25 MG TABLET PO SCH (08:49)
[2016-12-18] MEDS: SODIUM CHLORIDE 0.9% 1,000 ML IV SCH ×3 (08:49→16:56)
[2016-12-18] MEDS: SOTALOL 80 MG TABLET PO SCH ×2 (08:49→21:15)
[2016-12-18] MEDS: DILTIAZEM 60 MG TABLET PO SCH ×4 (08:49→21:16)
[2016-12-18] MEDS: predniSONE 1 MG TABLET PO SCH (12:05)
--- NOTE | 2016-12-18 13:41 | Neurology Progress Note ---
Neurology - PN : Subjective Interval history: Patient seems to be doing really well. No more headaches reported. Exam (Progress Note) - Constitutional Vitals: Period Temp Pulse Resp BP Sys/Tavera Pulse Ox Last 24 Hr 97.3 F-98.3 F 71-80 16-22 102-148/60-91 97-98 Exam: GENERAL: Patient is in no acute distress. NECK: Neck is supple. There is no JVD. No carotid bruits present. No thyroid masses. CVS: First and second heart sounds are normal. There is no S3 present. Regular rate and rhythm. RESPIRATORY: Lungs are clear to auscultation without any rales or rhonchi. ABDOMEN: Soft and non-tender. Bowel sounds are present. There is no hepatosplenomegaly. EXT: There is no palpable edema. Peripheral pulses are present. Skin: No rashes Central Nervous system: General: Alert, awake Speech: Fluent Comprehension: Intact and normal Facial expressions: Normal Cranial Nerves: CN1/Olfactory: Normal CN II/ Optic: Normal, Visual Daniels unreliable CN III, and : YAMIL & EOMI CN V: Normal & intact CN VII: face is symmetric CNVIII: Normal CN XI/X/XI/XII: Intact and Normal Motor: Bulk and Tone is normal. Strength in the right 3-4/5 Strength in the left 3-4/5 Sensory: Grossly intact for all the modalities of PP, LT and temp sense Reflexes: 1+ and symmetrical Cerebellar function: Normal finger to nose testing. Toes: Equivocal Gait: Not tested Results - Labs CBC & BMP: 12/16/16 08:56 12/16/16 11:03 Assessment and Plan (1) New onset of headaches Status: Acute Assessment and plan: No further intervention needed Add Namenda Follow-up in 4 weeks Current Visit: Yes Quality Measures - Stroke Onset of Symptoms Date: 12/16/16 Onset of Symptoms Time: 05:30 Specialty Discharge - Follow Up or Referrals Follow up with: Edison Tenorio MD [Physician] - 1 Month
--- NOTE | 2016-12-18 15:56 | Family Practice Progress Note ---
Family Practice - PN: Subj Interval history: Patient states that she feels much better today. I am seeing patient today for Dr. Mcgrath. She was admitted for a diffuse headache which is resolved. She was found to have a acute extension of the left thalamic infarct. She denies any localizing features of this. She was also found to have a severe pansinusitis with air-fluid levels in the maxillary and bilateral ethmoid sinuses. She was seen in consultation by Dr. López and . She is presently being treated with IV Levaquin and oral prednisone. She has not been out of bed much since admission. I reviewed her lab and other studies in detail. Will have patient increase level of activity. We will give an additional day of antibiotics and other meds. I have added Flonase nasal spray and pseudoephedrine to present treatment regimen. Patient will need to see Dr. Mcgrath, Dr. López and on discharge. Advised patient and family that if she is doing well,and ambulates today, then should be ready for discharge in a.m.. Patient will need to be discharged on antibiotics decongestant and nasal spray. She is presently on Coumadin and I will check for therapeutic level in a.m. before discharge. We will also obtain sinus series in a.m.. Appearance-general alert and oriented HEENT-no acute changes, slight tenderness on palpation over maxillary region of face Heart-regular rate and rhythm no murmurs Lungs-clear to auscultation Abdomen-soft and nontender Extremities-slight edema Neurological exam-stable to present Exam (Progress Note) - Constitutional Vitals: Period Temp Pulse Resp BP Sys/Tavera Pulse Ox Last 24 Hr 97.3 F-98.3 F 71-80 16-22 102-148/60-91 97-98 Results - Labs CBC & BMP: 12/16/16 08:56 12/16/16 11:03 Quality Measures - Stroke Onset of Symptoms Date: 12/16/16 Onset of Symptoms Time: 05:30 Specialty Discharge - Follow Up or Referrals Follow up with: Edison Tenorio MD [Physician] - 1 Month
[2016-12-18] MEDS: FLUTICASONE 50 MCG NASAL SPRAY 16 GM BOTTLE BOTH NARES SCH (16:56)
[2016-12-18] MEDS: PSEUDOEPHEDRINE 30 MG TABLET PO SCH ×2 (16:56→21:15)
[2016-12-18] MEDS: WARFARIN 2 MG TABLET PO SCH (16:56)
[2016-12-18] MEDS: LEVOFLOXACIN INJ 500 MG in PREMIX 1 EACH IV SCH (21:00)
[2016-12-18] MEDS: ATORVASTATIN 20 MG TABLET PO SCH (21:14)
[2016-12-18] MEDS: MEMANTINE 5 MG TABLET PO SCH (21:16)
[2016-12-18] MEDS: cloNIDine 0.1 MG TABLET PO SCH (21:16)
[2016-12-18] MEDS: MONTELUKAST 10 MG TABLET PO SCH (21:16)
[2016-12-19] MEDS: PSEUDOEPHEDRINE 30 MG TABLET PO SCH ×5 (04:00→22:31)
[2016-12-19 04:26] LABS: Basophils % 0.3 % (0.0-0.8); Eosinophils # 0.3 10*3/uL (0.0-0.87); Eosinophils % 5.5 % (0.00-10.9); Hematocrit 37.8 VOL% (35.7-47.0); Hemoglobin 11.7 GM/DL (12.0-16.0); Immature Granulocytes % 0.2 %; Immature Granulocytes Absolute 0.01 #; Lymphocytes # 1.9 10*3/uL (1.4-4.0); Lymphocytes % 32.8 % (21.3-54.2); Mean Corpuscular Hemoglobin 28 PG (27-34); Mean Corpuscular Volume 88.9 FL (87-102); Mean Platelet Volume 10.1 FL (9.6-12.0); Monocytes # 0.9 10*3/uL (0.11-0.8); Neutrophils # 2.6 10*3/uL (1.4-7.4); Neutrophils % 45.2 % (38.7-73.9); Platelet Count 203 T/CUMM (130-400); Red Blood Count 4.25 MC/CUMM (3.8-5.5); Red Cell Distribution Width 14.4 % (9.3-17.3); White Blood Count 5.8 T/CUMM (4-12)
[2016-12-19 04:42] LABS: PT Patient Result 46.5 SECS
[2016-12-19 04:58] LABS: Albumin 2.8 G/DL (3.4-5.0); Bilirubin,Total 0.4 MG/DL (0.2-1.0); Magnesium 1.8 MG/DL (1.8-2.4); Osmolality,Calculated 285.6 MOS/KG (273-304); Potassium 3.7 MMOL/L (3.5-5.1); Risk Ratio 1.81; Thyroid Stimulating Hormone 3.25 uIU/ml (0.358-3.74); VLDL CHOLESTEROL 10.2 MG/DL
[2016-12-19] MEDS: ACETAMINOPHEN 325 MG TABLET PO PRN (05:00)
[2016-12-19 06:16] LABS: Band Neutrophils 3 % (0-10); Lymphocytes 32 % (20-55); Total Cells Counted 100
[2016-12-19 06:17] LABS: Eosinophils 3 % (0-10); Platelet Estimate Normal; Segmented Neutrophils 44 % (50-85)
[2016-12-19] MEDS: SODIUM CHLORIDE 0.9% 1,000 ML IV SCH ×3 (06:30→20:53)
--- NOTE | 2016-12-19 07:26 | Family Practice Progress Note ---
Family Practice - PN: Subj Interval history: Patient seen this morning continues to still have a headache which she states is "all over". She has been taking Sudafed presumptively for sinus headaches. Also is on Tylenol and Celebrex. Her blood pressure has been slightly elevated. CBC is normal. Her BMP reveals sodium 146, BUN 5 creatinine 1. Other parameters are grossly normal. She denies any chest pain or shortness of breath. Mainly the headache. I am going to give her a little Fioricet see if this will help Exam (Progress Note) - Constitutional Vitals: Period Temp Pulse Resp BP Sys/Tavera Pulse Ox Last 24 Hr 97.3 F-98.1 F 62-95 16-22 100-141/59-97 94-100 Exam: Generally stable no acute distress no cranial nerve deficits HEENT pupils are equal reactive to light neck is supple Cardiovascular rate is regular 1/6 systolic ejection murmur Lungs are clear Abdomen soft nondistended Results - Labs CBC & BMP: 12/19/16 02:16 12/19/16 02:16 Assessment and Plan (1) Intractable headache Status: Acute Assessment and plan: 12/19/2016 go to go ahead and start her on Fioricet Current Visit: Yes Quality Measures - Stroke Onset of Symptoms Date: 12/16/16 Onset of Symptoms Time: 05:30 Specialty Discharge - Follow Up or Referrals Follow up with: Edison Tenorio MD [Physician] - 1 Month
[2016-12-19] MEDS: DILTIAZEM 60 MG TABLET PO SCH ×5 (08:35→20:34)
[2016-12-19] MEDS: sulfaSALAzine 500 MG TABLET PO SCH ×2 (09:03→20:33)
[2016-12-19] MEDS: SOTALOL 80 MG TABLET PO SCH ×2 (09:04→20:33)
[2016-12-19] MEDS: PANTOPRAZOLE 40 MG TABLET PO SCH (09:04)
[2016-12-19] MEDS: MEMANTINE 5 MG TABLET PO SCH ×2 (09:04→20:35)
[2016-12-19] MEDS: CELECOXIB 200 MG CAPSULE PO SCH (09:04)
[2016-12-19] MEDS: LISINOPRIL 10 MG TABLET PO SCH (09:04)
[2016-12-19] MEDS: levETIRAcetam 250 MG TABLET PO SCH ×2 (09:04→20:34)
[2016-12-19] MEDS: CETIRIZINE 10 MG TABLET PO SCH (09:05)
[2016-12-19] MEDS: MAGNESIUM OXIDE 400 MG TABLET PO SCH (09:05)
[2016-12-19] MEDS: CARVEDILOL 6.25 MG TABLET PO SCH (09:05)
[2016-12-19] MEDS: DOCUSATE SODIUM 100 MG CAPSULE PO SCH ×2 (09:05→20:42)
[2016-12-19] MEDS: CALCIUM (CARBONATE)/VITAMIN D 500 MG-200 UNIT TABLET PO SCH (09:05)
[2016-12-19] MEDS: FLUTICASONE 50 MCG NASAL SPRAY 16 GM BOTTLE BOTH NARES SCH (09:06)
[2016-12-19] MEDS: POTASSIUM CHLORIDE 20 MEQ TABLET PO SCH ×2 (09:06→20:42)
[2016-12-19] MEDS: FUROSEMIDE 40 MG TABLET PO SCH ×2 (09:06→20:35)
[2016-12-19] MEDS: predniSONE 1 MG TABLET PO SCH (12:15)
[2016-12-19] MEDS: BUTALBITAL/ACETAMIN/CAFFEINE 50-325-40 MG TABLET PO PRN (12:29)
[2016-12-19] MEDS ORDERED: ZIPRASIDONE 20 MG/1 ML VIAL IM ONE (12:49)
--- NOTE | 2016-12-19 12:49 | Neurology Progress Note ---
Neurology - PN : Subjective Interval history: Patient is started to have headaches again this morning. Reported that he is hurting all over the head. She has hard time describing the exact nature of the headache and severity as well. Exam (Progress Note) - Constitutional Vitals: Period Temp Pulse Resp BP Sys/Tavera Pulse Ox Last 24 Hr 97.3 F-98.1 F 62-95 16-22 100-141/59-97 94-100 Exam: GENERAL: Patient is in no acute distress. NECK: Neck is supple. There is no JVD. No carotid bruits present. No thyroid masses. CVS: First and second heart sounds are normal. There is no S3 present. Regular rate and rhythm. RESPIRATORY: Lungs are clear to auscultation without any rales or rhonchi. ABDOMEN: Soft and non-tender. Bowel sounds are present. There is no hepatosplenomegaly. EXT: There is no palpable edema. Peripheral pulses are present. Skin: No rashes Central Nervous system: General: Alert, awake Speech: Fluent Comprehension: Intact and normal Facial expressions: Normal Cranial Nerves: CN1/Olfactory: Normal CN II/ Optic: Normal, Visual Daniels unreliable CN III, and : YAMIL & EOMI CN V: Normal & intact CN VII: face is symmetric CNVIII: Normal CN XI/X/XI/XII: Intact and Normal Motor: Bulk and Tone is normal. Strength in the right 3-4/5 Strength in the left 3-4/5 Sensory: Grossly intact for all the modalities of PP, LT and temp sense Reflexes: 1+ and symmetrical Cerebellar function: Normal finger to nose testing. Toes: Equivocal Gait: Not tested Results - Labs CBC & BMP: 12/19/16 02:16 12/19/16 02:16 Assessment and Plan (1) New onset of headaches Status: Acute Assessment and plan: We will give her another dose of Geodon Continue rest of the treatment Current Visit: Yes Quality Measures - Stroke Onset of Symptoms Date: 12/16/16 Onset of Symptoms Time: 05:30 Specialty Discharge - Follow Up or Referrals Follow up with: Edison Tenorio MD [Physician] - 1 Month
--- NOTE | 2016-12-19 16:57 | XRay Report ---
History: Maxillary sinusitis Date: 12/19/2016 Study: Paranasal sinuses 3 views Comparison exam: October 20, 2014 sinus x-ray Moderate fluid levels are noted within the maxillary sinuses. There is also [id number] mucosal thickening. The other sinuses are generally clear. The frontal sinuses are hypoplastic. There is no acute osseous abnormality. Impression: Bilateral maxillary sinusitis PROCEDURE INTERPRETED AT [facility] DEPARTMENT OF RADIOLOGY Final Report Signed by: Dr. Anabella Sanchez
[2016-12-19] MEDS ORDERED: hydrALAZINE 20 MG/1 ML VIAL IV ONE (17:00)
--- NOTE | 2016-12-19 17:41 | EKG Report ---
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
--- NOTE | 2016-12-19 18:29 | CT Report ---
History: Mental status changes Date: 12/19/2016 Study: CT head with and without IV contrast Comparison exam: Noncontrast head CT December 16, [address] sections were obtained through the head with and without 80 mL Omnipaque [address]. [address] exam was performed using one or more the following dose reduction techniques: Automated exposure control, adjustment of the MA and/or KV according to patient size, or use of iterative reconstruction technique. The ventricles are midline in position without evidence of hydrocephalus. There is no mass or parenchymal hemorrhage. There is no gross CT evidence of acute cortical stroke. There is a large wedge-shaped area of encephalomalacia involving right temporal and parietal lobe compatible with chronic right MCA distribution infarct. There is also chronic lacunar infarction in the left frontal periventricular white matter and in the left thalamus. There is no abnormal post-IV contrast enhancement. There is mild to moderate ill-defined low density in the periventricular white matter without mass effect or enhancement compatible with changes of small vessel disease. There is no acute extra-axial hematoma. The superior sagittal sinus is patent. Moderate fluid levels are noted in the maxillary sinuses, increased. There is prominent opacification of the ethmoid air cells as before. There is mild to moderate sphenoid sinus mucosal thickening as before. Otherwise unchanged. Impression: No acute intracranial change compared to the previous study. Chronic ischemic changes as discussed above. Sinusitis PROCEDURE INTERPRETED AT [facility] DEPARTMENT OF RADIOLOGY Final Report Signed by: Dr. Anabella Sanchez
[2016-12-19] MEDS: MONTELUKAST 10 MG TABLET PO SCH (20:35)
[2016-12-19] MEDS: LEVOFLOXACIN INJ 500 MG in PREMIX 1 EACH IV SCH (20:42)
[2016-12-19] MEDS ORDERED: cloNIDine 0.1 MG TABLET PO SCH (21:00)
[2016-12-19] MEDS: ATORVASTATIN 20 MG TABLET PO SCH (22:32)
[2016-12-20] MEDS ORDERED: hydrALAZINE 20 MG/1 ML VIAL IV SCH
[2016-12-20] MEDS ORDERED: hydrALAZINE 20 MG/1 ML VIAL IV PRN (00:14)
[2016-12-20] MEDS: PSEUDOEPHEDRINE 30 MG TABLET PO SCH ×4 (06:29→21:36)
[2016-12-20] MEDS: SODIUM CHLORIDE 0.9% 1,000 ML IV SCH ×2 (07:16→18:13)
[2016-12-20] MEDS: DILTIAZEM 60 MG TABLET PO SCH ×4 (07:52→20:09)
--- NOTE | 2016-12-20 08:29 | Family Practice Progress Note ---
Family Practice - PN: Subj Interval history: Patient seen this morning and she is some still running some high blood pressures. We will increase her clonidine to 0.2 mg twice a day. She is on as needed Apresoline. Sodium has come down some to 146 and the remaining lab looks pretty good otherwise. No acute distress at this time her headaches are a little bit better today. Her blood pressure continues to come down we will transfer to the floor Exam (Progress Note) - Constitutional Vitals: Period Temp Pulse Resp BP Sys/Tavera Pulse Ox Last 24 Hr 97 F-98.2 F 78-108 17-28 131-193/74-125 93-100 Exam: Generally stable no acute distress no cranial nerve deficits HEENT pupils are equal reactive to light neck is supple Cardiovascular rate is regular 1/6 systolic ejection murmur Lungs are clear Abdomen soft nondistended Blood pressure elevated still we will going to increase her clonidine Results - Labs CBC & BMP: 12/19/16 02:16 12/19/16 02:16 Assessment and Plan (1) Intractable headache Status: Acute Assessment and plan: 12/19/2016 go to go ahead and start her on Fioricet Current Visit: Yes Quality Measures - Stroke Onset of Symptoms Date: 12/16/16 Onset of Symptoms Time: 05:30 Specialty Discharge - Follow Up or Referrals Follow up with: Edison Tenorio MD [Physician] - 1 Month
[2016-12-20] MEDS: FUROSEMIDE 40 MG TABLET PO SCH ×2 (08:44→20:09)
[2016-12-20] MEDS: DOCUSATE SODIUM 100 MG CAPSULE PO SCH ×2 (08:44→20:09)
[2016-12-20] MEDS: sulfaSALAzine 500 MG TABLET PO SCH ×2 (08:44→20:08)
[2016-12-20] MEDS: CELECOXIB 200 MG CAPSULE PO SCH (08:44)
[2016-12-20] MEDS: SOTALOL 80 MG TABLET PO SCH ×2 (08:45→20:09)
[2016-12-20] MEDS: CETIRIZINE 10 MG TABLET PO SCH (08:45)
[2016-12-20] MEDS: MEMANTINE 5 MG TABLET PO SCH ×2 (08:45→20:09)
[2016-12-20] MEDS: CALCIUM (CARBONATE)/VITAMIN D 500 MG-200 UNIT TABLET PO SCH (08:45)
[2016-12-20] MEDS: MAGNESIUM OXIDE 400 MG TABLET PO SCH (08:45)
[2016-12-20] MEDS: levETIRAcetam 250 MG TABLET PO SCH ×2 (08:45→20:08)
[2016-12-20] MEDS: LISINOPRIL 10 MG TABLET PO SCH (08:45)
[2016-12-20] MEDS: POTASSIUM CHLORIDE 20 MEQ TABLET PO SCH ×2 (08:45→20:08)
[2016-12-20] MEDS: PANTOPRAZOLE 40 MG TABLET PO SCH (08:45)
[2016-12-20] MEDS: CARVEDILOL 6.25 MG TABLET PO SCH (08:45)
[2016-12-20] MEDS: FLUTICASONE 50 MCG NASAL SPRAY 16 GM BOTTLE BOTH NARES SCH (08:46)
[2016-12-20] MEDS: predniSONE 1 MG TABLET PO SCH (11:51)
[2016-12-20] MEDS: LEVOFLOXACIN INJ 500 MG in PREMIX 1 EACH IV SCH (20:05)
[2016-12-20] MEDS: ATORVASTATIN 20 MG TABLET PO SCH (20:08)
[2016-12-20] MEDS: MONTELUKAST 10 MG TABLET PO SCH (20:09)
[2016-12-21] MEDS: SODIUM CHLORIDE 0.9% 1,000 ML IV SCH ×2 (04:45→14:05)
[2016-12-21] MEDS: PSEUDOEPHEDRINE 30 MG TABLET PO SCH ×4 (04:45→22:07)
[2016-12-21 05:35] LABS: Basophils # 0.1 10*3/uL (0.0-0.2); Basophils % 0.7 % (0.0-0.8); Eosinophils # 0.4 10*3/uL (0.0-0.87); Hematocrit 41.2 VOL% (35.7-47.0); Hemoglobin 12.3 GM/DL (12.0-16.0); Immature Granulocytes Absolute 0.07 #; Lymphocytes # 2.5 10*3/uL (1.4-4.0); Lymphocytes % 36.6 % (21.3-54.2); Mean Corpuscular HGB Conc 29.9 GM/DL (32-36); Mean Corpuscular Hemoglobin 28 PG (27-34); Mean Corpuscular Volume 92.8 FL (87-102); Mean Platelet Volume 10.5 FL (9.6-12.0); Monocytes # 1.1 10*3/uL (0.11-0.8); Monocytes % 16.5 % (1.7-12.7); Neutrophils # 2.6 10*3/uL (1.4-7.4); Neutrophils % 39.2 % (38.7-73.9); Platelet Count 183 T/CUMM (130-400); Red Blood Count 4.44 MC/CUMM (3.8-5.5); Red Cell Distribution Width 14.7 % (9.3-17.3); White Blood Count 6.7 T/CUMM (4-12)
[2016-12-21 05:42] LABS: INR 3.8
[2016-12-21 05:50] LABS: PT Patient Result 44.1 SECS
[2016-12-21 05:54] LABS: Calcium 8.3 MG/DL (8.5-10.1); Magnesium 1.6 MG/DL (1.8-2.4); Osmolality,Calculated 286.6 MOS/KG (273-304); Potassium 4.3 MMOL/L (3.5-5.1)
[2016-12-21 05:56] LABS: Acanthocytes 1+; Anisocytosis 1+; Eosinophils 8 % (0-10); Lymphocytes 36 % (20-55); Macrocytosis 1+; Ovalocytes 1+; Platelet Estimate Normal; Polychromasia 1+; Segmented Neutrophils 42 % (50-85); Total Cells Counted 100
--- NOTE | 2016-12-21 08:04 | Family Practice Progress Note ---
Family Practice - PN: Subj Interval history: Patient apparently became somewhat sedated after Geodon injection. Patient states her headaches are now resolved and she certainly has returned to her normal sensorium. I think she can go back to the floor. Exam (Progress Note) - Constitutional Vitals: Period Temp Pulse Resp BP Sys/Tavera Pulse Ox Last 24 Hr 96.7 F-97.8 F 61-102 15-29 98-162/60-105 95-99 Exam: Objectively well-developed black female in no acute distress. She is able answer all questions appropriately. She is coherent and at her normal sensorium. She denies headache. Cardiovascular: Heart rates are regular without murmurs or gallops Respiratory: Lungs clear to auscultation bilaterally. Abdomen: Abdomen soft and nontender to palpation. Neuro: Patient has equal strength in all extremities. She has slight left facial weakness which is chronic. Results - Labs CBC & BMP: 12/21/16 03:59 12/21/16 03:59 Lab Results: I have reviewed the past 24 hour labs Assessment and Plan (1) Intractable headache Status: Acute Assessment and plan: 12/16/2016: A CRP and sed rate have been ordered. She does have a history of recent sinusitis and I am going to place her on IV Levaquin. 12/17/2016: I am going to consult Dr. López, Dr. Tenorio is also been consulted. 12/21/2016: Patient's headache has resolved. Current Visit: Yes (2) Abnormal CT of brain Status: Acute Assessment and plan: 12/16/2016: We will consult Dr. Tenorio. The changes described Dr. Lopez were not readily apparent to me and she has no lateralizing signs or symptoms that I can elicit. Current Visit: Yes Quality Measures - Stroke Onset of Symptoms Date: 12/16/16 Onset of Symptoms Time: 05:30 Specialty Discharge - Follow Up or Referrals Follow up with: Edison Tenorio MD [Physician] - 1 Month
[2016-12-21] MEDS: DILTIAZEM 60 MG TABLET PO SCH ×4 (09:24→21:14)
[2016-12-21] MEDS: PANTOPRAZOLE 40 MG TABLET PO SCH (09:27)
[2016-12-21] MEDS: CETIRIZINE 10 MG TABLET PO SCH (09:27)
[2016-12-21] MEDS: LISINOPRIL 10 MG TABLET PO SCH (09:28)
[2016-12-21] MEDS: CALCIUM (CARBONATE)/VITAMIN D 500 MG-200 UNIT TABLET PO SCH (09:28)
[2016-12-21] MEDS: MEMANTINE 5 MG TABLET PO SCH ×2 (09:29→21:13)
[2016-12-21] MEDS: MAGNESIUM OXIDE 400 MG TABLET PO SCH (09:29)
[2016-12-21] MEDS: FUROSEMIDE 40 MG TABLET PO SCH ×2 (09:30→22:50)
[2016-12-21] MEDS: POTASSIUM CHLORIDE 20 MEQ TABLET PO SCH ×2 (09:31→21:15)
[2016-12-21] MEDS: levETIRAcetam 250 MG TABLET PO SCH ×2 (09:31→21:14)
[2016-12-21] MEDS: CARVEDILOL 6.25 MG TABLET PO SCH (09:32)
[2016-12-21] MEDS: DOCUSATE SODIUM 100 MG CAPSULE PO SCH ×2 (09:33→21:14)
[2016-12-21] MEDS: CELECOXIB 200 MG CAPSULE PO SCH (09:33)
[2016-12-21] MEDS: SOTALOL 80 MG TABLET PO SCH ×2 (09:34→21:13)
[2016-12-21] MEDS: sulfaSALAzine 500 MG TABLET PO SCH ×2 (09:34→21:13)
[2016-12-21] MEDS: FLUTICASONE 50 MCG NASAL SPRAY 16 GM BOTTLE BOTH NARES SCH (09:36)
[2016-12-21] MEDS: predniSONE 1 MG TABLET PO SCH (11:08)
--- NOTE | 2016-12-21 15:30 | Neurology Progress Note ---
Neurology - PN : Subjective Interval history: Patient seems to be doing really well. She did go to the CCU for decreased level of consciousness however she is doing fine now. No headaches reported Exam (Progress Note) - Constitutional Vitals: Period Temp Pulse Resp BP Sys/Tavera Pulse Ox Last 24 Hr 96.7 F-98.2 F 61-96 15-29 108-163/71-119 93-99 Exam: GENERAL: Patient is in no acute distress. NECK: Neck is supple. There is no JVD. No carotid bruits present. No thyroid masses. CVS: First and second heart sounds are normal. There is no S3 present. Regular rate and rhythm. RESPIRATORY: Lungs are clear to auscultation without any rales or rhonchi. ABDOMEN: Soft and non-tender. Bowel sounds are present. There is no hepatosplenomegaly. EXT: There is no palpable edema. Peripheral pulses are present. Skin: No rashes Central Nervous system: General: Alert, awake Speech: Fluent Comprehension: Intact and normal Facial expressions: Normal Cranial Nerves: CN1/Olfactory: Normal CN II/ Optic: Normal, Visual Daniels unreliable CN III, and : YAMIL & EOMI CN V: Normal & intact CN VII: face is symmetric CNVIII: Normal CN XI/X/XI/XII: Intact and Normal Motor: Bulk and Tone is normal. Strength in the right 3-4/5 Strength in the left 3-4/5 Sensory: Grossly intact for all the modalities of PP, LT and temp sense Reflexes: 1+ and symmetrical Cerebellar function: Normal finger to nose testing. Toes: Equivocal Gait: Not tested Results - Labs CBC & BMP: 12/21/16 03:59 12/21/16 03:59 Assessment and Plan (1) New onset of headaches Status: Acute Assessment and plan: Continue current management. Follow-up in 4 weeks Current Visit: Yes Quality Measures - Stroke Onset of Symptoms Date: 12/16/16 Onset of Symptoms Time: 05:30 Specialty Discharge - Follow Up or Referrals Follow up with: Edison Tenorio MD [Physician] - 1 Month
[2016-12-21] MEDS ORDERED: WARFARIN 2 MG TABLET PO SCH (17:07)
[2016-12-21] MEDS: MONTELUKAST 10 MG TABLET PO SCH (21:13)
[2016-12-21] MEDS: ATORVASTATIN 20 MG TABLET PO SCH (21:14)
[2016-12-21] MEDS: LEVOFLOXACIN INJ 500 MG in PREMIX 1 EACH IV SCH (21:15)
[2016-12-21] MEDS ORDERED: IPRATROPIUM 500 MCG/2.5 ML NEB RESP TX PRN (23:04)
[2016-12-22] MEDS: SODIUM CHLORIDE 0.45% 1,000 ML IV SCH (02:00)
[2016-12-22] MEDS ORDERED: HYDROmorphone 2 MG/1 ML VIAL IV ONE (07:38)
[2016-12-22] MEDS ORDERED: ONDANSETRON 4 MG/2 ML VIAL IV ONE (07:38)
[2016-12-22 07:40] LABS: PT Patient Result 33.6 SECS
--- NOTE | 2016-12-22 07:54 | Family Practice Progress Note ---
Family Practice - PN: Subj Interval history: Patient had a bad night according to her daughter. She is complaining of headache again. Daughter states this all began after she took a Sudafed for her sinus congestion. She has not had any fever or and her vital signs are stable but a little elevated this morning. Patient is basically crying with a headache this morning. She has not had any nausea vomiting she denies any other associated symptoms. Exam (Progress Note) - Constitutional Vitals: Period Temp Pulse Resp BP Sys/Tavera Pulse Ox Last 24 Hr 96.7 F-98.9 F 65-96 18-25 128-163/74-119 92-100 Exam: Objectively well-developed black female who is complaining bitterly of headache. She is awake, alert and cogent. Cardiovascular: Heart rates are regular without murmurs or gallops Respiratory: Lungs clear to auscultation bilaterally. She is tachypneic. Abdomen: Abdomen soft and nontender to palpation. Neuro: Patient has equal strength in all extremities. She has slight left facial weakness which is chronic. Results - Labs CBC & BMP: 12/21/16 03:59 12/21/16 03:59 Lab Results: I have reviewed the past 24 hour labs Assessment and Plan (1) Intractable headache Status: Acute Assessment and plan: 12/16/2016: A CRP and sed rate have been ordered. She does have a history of recent sinusitis and I am going to place her on IV Levaquin. 12/17/2016: I am going to consult Dr. López, Dr. Tenorio is also been consulted. 12/21/2016: Patient's headache has resolved. 12/22/2016: Patient is having recurring headache this morning. Current Visit: Yes (2) Abnormal CT of brain Status: Acute Assessment and plan: 12/16/2016: We will consult Dr. Tenorio. The changes described Dr. Lopez were not readily apparent to me and she has no lateralizing signs or symptoms that I can elicit. Current Visit: Yes Quality Measures - Stroke Onset of Symptoms Date: 12/16/16 Onset of Symptoms Time: 05:30 Specialty Discharge - Follow Up or Referrals Follow up with: Edison Tenorio MD [Physician] - 1 Month
--- NOTE | 2016-12-22 08:15 | EKG Report ---
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
[2016-12-22 08:18] LABS: Troponin I Only 0.076 NG/ML (0.00-0.045)
[2016-12-22] MEDS: DILTIAZEM 60 MG TABLET PO SCH ×4 (08:18→22:16)
[2016-12-22] MEDS: FUROSEMIDE 40 MG TABLET PO SCH ×2 (08:19→16:58)
[2016-12-22] MEDS: sulfaSALAzine 500 MG TABLET PO SCH ×2 (08:19→22:15)
[2016-12-22] MEDS: SOTALOL 80 MG TABLET PO SCH ×2 (08:20→22:15)
[2016-12-22] MEDS: CELECOXIB 200 MG CAPSULE PO SCH (08:20)
[2016-12-22] MEDS: DOCUSATE SODIUM 100 MG CAPSULE PO SCH ×2 (08:21→22:19)
[2016-12-22] MEDS: CARVEDILOL 6.25 MG TABLET PO SCH (08:31)
[2016-12-22] MEDS: levETIRAcetam 250 MG TABLET PO SCH ×2 (08:32→22:16)
[2016-12-22] MEDS: LISINOPRIL 10 MG TABLET PO SCH (08:33)
[2016-12-22] MEDS: MAGNESIUM OXIDE 400 MG TABLET PO SCH (08:33)
[2016-12-22] MEDS: CALCIUM (CARBONATE)/VITAMIN D 500 MG-200 UNIT TABLET PO SCH (08:33)
[2016-12-22] MEDS: MEMANTINE 5 MG TABLET PO SCH ×2 (08:33→22:19)
[2016-12-22] MEDS: CETIRIZINE 10 MG TABLET PO SCH (08:34)
[2016-12-22] MEDS: POTASSIUM CHLORIDE 20 MEQ TABLET PO SCH ×2 (08:34→22:15)
[2016-12-22] MEDS: PANTOPRAZOLE 40 MG TABLET PO SCH (08:34)
[2016-12-22] MEDS: FLUTICASONE 50 MCG NASAL SPRAY 16 GM BOTTLE BOTH NARES SCH (08:35)
[2016-12-22 11:32] LABS: Troponin I Only 0.067 NG/ML (0.00-0.045)
[2016-12-22] MEDS: predniSONE 1 MG TABLET PO SCH (14:01)
[2016-12-22 14:12] LABS: Troponin I Only 0.061 NG/ML (0.00-0.045)
[2016-12-22] MEDS: WARFARIN 2 MG TABLET PO SCH (16:58)
[2016-12-22 17:37] LABS: Troponin I Only 0.056 NG/ML (0.00-0.045)
--- NOTE | 2016-12-22 18:52 | CT Report ---
History: Severe headache Date: 12/22/2016 Study: CT head without contrast Comparison exam: December 19, [address] sections were obtained through the head without IV contrast. This CT exam was performed using one or more the following dose reduction techniques: Automated exposure control, adjustment of the MA and/or KV according to patient size, or use of iterative reconstruction technique. The ventricles in midline position without evidence of hydrocephalus. There is no parenchymal hemorrhage or new area of mass effect. There is a chronic large right MCA distribution infarct involving the right temporal and parietal lobes as before. There is chronic infarction in the opercular portion of the left frontal lobe extending to the periventricular white matter in a left MCA distribution as before. There is no gross CT evidence of acute cortical stroke. There is some ill-defined low-density in the periventricular white matter without mass effect compatible with changes of small vessel disease. There is no acute extra-axial hematoma. There is continued sinusitis, as evidenced by moderate fluid within the maxillary and sphenoid sinuses as before. There is prominent ethmoid sinus disease as before. Impression: Overall no significant change from the comparison study. Chronic ischemic changes. Continued sinusitis PROCEDURE INTERPRETED AT [facility] DEPARTMENT OF RADIOLOGY Final Report Signed by: Dr. Anabella Sanchez
[2016-12-22] MEDS: LEVOFLOXACIN INJ 500 MG in PREMIX 1 EACH IV SCH (22:14)
[2016-12-22] MEDS: MONTELUKAST 10 MG TABLET PO SCH (22:16)
[2016-12-22] MEDS: OLANZapine 2.5 MG TABLET PO SCH (22:19)
[2016-12-22] MEDS: ATORVASTATIN 20 MG TABLET PO SCH (22:19)
[2016-12-23] MEDS: SODIUM CHLORIDE 0.9% 1,000 ML IV SCH (07:32)
--- NOTE | 2016-12-23 08:05 | Family Practice Progress Note ---
Family Practice - PN: Subj Interval history: Patient actually had a good night and slept soundly last night. Her daughter states she is eating and drinking quite well and wants to do with her IV fluids I think today reasonable idea. She still on IV Levaquin. Her CT of the brain yesterday showed persistent changes of sinusitis. I am going to add oral Bactrim as she certainly could have MRSA. She states she is feeling much better this morning and had a good night sleep. Her headache is resolved for the time being. I started on low-dose Zyprexa each night and hopefully this will continue to help her rest. Exam (Progress Note) - Constitutional Vitals: Period Temp Pulse Resp BP Sys/Tavera Pulse Ox Last 24 Hr 97.1 F-98.3 F 61-89 17-24 92-150/67-118 95-100 Exam: Objectively well-developed black female who is feeling much better this morning. She states her headache has resolved. Cardiovascular: Heart rates are regular without murmurs or gallops Respiratory: Lungs clear to auscultation bilaterally. She is tachypneic. Abdomen: Abdomen soft and nontender to palpation. Neuro: Patient has equal strength in all extremities. She has slight left facial weakness which is chronic. Results - Labs CBC & BMP: 12/21/16 03:59 12/21/16 03:59 - Diagnostic Findings Procedure: CT: report reviewed by me (CT brain yesterday showed no acute change. ) Assessment and Plan (1) Intractable headache Status: Acute Assessment and plan: 12/16/2016: A CRP and sed rate have been ordered. She does have a history of recent sinusitis and I am going to place her on IV Levaquin. 12/17/2016: I am going to consult Dr. López, Dr. Tenorio is also been consulted. 12/21/2016: Patient's headache has resolved. 12/22/2016: Patient is having recurring headache this morning. 12/23/2016: Patient's headache has certainly improved. CT scan shows persistent sinusitis changes. I am going to add Bactrim. Current Visit: Yes (2) Abnormal CT of brain Status: Acute Assessment and plan: 12/16/2016: We will consult Dr. Tenorio. The changes described Dr. Lopez were not readily apparent to me and she has no lateralizing signs or symptoms that I can elicit. Current Visit: Yes Quality Measures - Stroke Onset of Symptoms Date: 12/16/16 Onset of Symptoms Time: 05:30 Specialty Discharge - Follow Up or Referrals Follow up with: Edison Tenorio MD [Physician] - 01/21/17 9:30 am
[2016-12-23] MEDS: SOTALOL 80 MG TABLET PO SCH ×2 (09:01→21:12)
[2016-12-23] MEDS: FLUTICASONE 50 MCG NASAL SPRAY 16 GM BOTTLE BOTH NARES SCH (09:01)
[2016-12-23] MEDS: sulfaSALAzine 500 MG TABLET PO SCH ×2 (09:01→21:15)
[2016-12-23] MEDS: FUROSEMIDE 40 MG TABLET PO SCH ×2 (09:02→16:08)
[2016-12-23] MEDS: levETIRAcetam 250 MG TABLET PO SCH ×2 (09:02→21:14)
[2016-12-23] MEDS: CARVEDILOL 6.25 MG TABLET PO SCH (09:02)
[2016-12-23] MEDS: CELECOXIB 200 MG CAPSULE PO SCH (09:02)
[2016-12-23] MEDS: MEMANTINE 5 MG TABLET PO SCH ×2 (09:02→21:13)
[2016-12-23] MEDS: LISINOPRIL 10 MG TABLET PO SCH (09:02)
[2016-12-23] MEDS: PANTOPRAZOLE 40 MG TABLET PO SCH (09:02)
[2016-12-23] MEDS: POTASSIUM CHLORIDE 20 MEQ TABLET PO SCH ×2 (09:02→21:14)
[2016-12-23] MEDS: CETIRIZINE 10 MG TABLET PO SCH (09:03)
[2016-12-23] MEDS: DOCUSATE SODIUM 100 MG CAPSULE PO SCH ×2 (09:03→21:14)
[2016-12-23] MEDS: DILTIAZEM 60 MG TABLET PO SCH ×4 (09:03→21:12)
[2016-12-23] MEDS: SULFAMETHOX/TRIMETHOPRIM 800-160 MG TABLET PO SCH ×2 (09:03→21:15)
[2016-12-23] MEDS: MAGNESIUM OXIDE 400 MG TABLET PO SCH (09:03)
[2016-12-23] MEDS: CALCIUM (CARBONATE)/VITAMIN D 500 MG-200 UNIT TABLET PO SCH (09:03)
[2016-12-23 10:14] LABS: INR 2.6
[2016-12-23 10:15] LABS: PT Patient Result 29.4 SECS
[2016-12-23] MEDS: SODIUM CHLORIDE 0.45% 1,000 ML IV SCH (10:19)
[2016-12-23] MEDS: predniSONE 1 MG TABLET PO SCH (11:14)
[2016-12-23] MEDS ORDERED: OXYMETAZOLINE 0.05% NASAL SPRAY 15 ML BOTTLE BOTH NARES PRN (16:22)
[2016-12-23] MEDS: WARFARIN 2 MG TABLET PO SCH (16:52)
[2016-12-23] MEDS: OXYMETAZOLINE 0.05% NASAL SPRAY 15 ML BOTTLE BOTH NARES SCH ×2 (16:53→21:12)
[2016-12-23] MEDS: MONTELUKAST 10 MG TABLET PO SCH (21:12)
[2016-12-23] MEDS: ATORVASTATIN 20 MG TABLET PO SCH (21:12)
[2016-12-23] MEDS: LEVOFLOXACIN INJ 500 MG in PREMIX 1 EACH IV SCH (21:15)
[2016-12-23] MEDS: OLANZapine 2.5 MG TABLET PO SCH (21:34)
[2016-12-24] MEDS: BUTALBITAL/ACETAMIN/CAFFEINE 50-325-40 MG TABLET PO PRN ×2 (04:07→22:29)
[2016-12-24] MEDS: HYDROmorphone 2 MG/1 ML VIAL IV PRN ×2 (06:01→11:43)
[2016-12-24 06:42] LABS: PT Patient Result 63.9 SECS
[2016-12-24 06:43] LABS: INR 5.4
--- NOTE | 2016-12-24 07:50 | Family Practice Progress Note ---
Family Practice - PN: Subj Interval history: Patient continues to complain of bifrontal headache. I think I am going to have to repeat her CT of her sinuses and asked Dr. López to see her again. Her repeat CT brain showed no abnormality. I told her daughter certainly did not appear to be a headache related to her prior stroke. Exam (Progress Note) - Constitutional Vitals: Period Temp Pulse Resp BP Sys/Tavera Pulse Ox Last 24 Hr 97.5 F-98.3 F 77-105 20-22 102-126/69-93 92-96 Exam: Objectively well-developed black female who is feeling much better this morning. She states her headache has returned. Cardiovascular: Heart rates are regular without murmurs or gallops Respiratory: Lungs clear to auscultation bilaterally. She is tachypneic. Abdomen: Abdomen soft and nontender to palpation. Neuro: Patient has equal strength in all extremities. She has slight left facial weakness which is chronic. Results - Labs CBC & BMP: 12/21/16 03:59 12/21/16 03:59 Lab Results: I have reviewed the past 24 hour labs Assessment and Plan (1) Intractable headache Status: Acute Assessment and plan: 12/16/2016: A CRP and sed rate have been ordered. She does have a history of recent sinusitis and I am going to place her on IV Levaquin. 12/17/2016: I am going to consult Dr. López, Dr. Tenorio is also been consulted. 12/21/2016: Patient's headache has resolved. 12/22/2016: Patient is having recurring headache this morning. 12/23/2016: Patient's headache has certainly improved. CT scan shows persistent sinusitis changes. I am going to add Bactrim. 12/24/2016: Patient headache is returned with a vengeance. Her INR is also up to 5.4. I am going to hold her Coumadin for 2 days repeat her INR Wednesday. We will asked Dr. del real to see her again. Current Visit: Yes (2) Abnormal CT of brain Status: Acute Assessment and plan: 12/16/2016: We will consult Dr. Tenorio. The changes described Dr. Lopez were not readily apparent to me and she has no lateralizing signs or symptoms that I can elicit. Current Visit: Yes Quality Measures - Stroke Onset of Symptoms Date: 12/16/16 Onset of Symptoms Time: 05:30 Specialty Discharge - Follow Up or Referrals Follow up with: dEison Tenorio MD [Physician] - 01/21/17 9:30 am
[2016-12-24] MEDS: DILTIAZEM 60 MG TABLET PO SCH ×4 (08:53→21:19)
[2016-12-24] MEDS: OXYMETAZOLINE 0.05% NASAL SPRAY 15 ML BOTTLE BOTH NARES SCH ×2 (08:54→21:17)
[2016-12-24] MEDS: FUROSEMIDE 40 MG TABLET PO SCH ×2 (08:54→15:46)
[2016-12-24] MEDS: SULFAMETHOX/TRIMETHOPRIM 800-160 MG TABLET PO SCH ×2 (08:56→21:19)
[2016-12-24] MEDS: SOTALOL 80 MG TABLET PO SCH ×2 (08:57→21:18)
[2016-12-24] MEDS: sulfaSALAzine 500 MG TABLET PO SCH ×2 (08:58→21:19)
[2016-12-24] MEDS: CELECOXIB 200 MG CAPSULE PO SCH (08:59)
[2016-12-24] MEDS: DOCUSATE SODIUM 100 MG CAPSULE PO SCH ×2 (08:59→21:19)
[2016-12-24] MEDS: CARVEDILOL 6.25 MG TABLET PO SCH (08:59)
[2016-12-24] MEDS: FLUTICASONE 50 MCG NASAL SPRAY 16 GM BOTTLE BOTH NARES SCH (09:00)
[2016-12-24] MEDS: POTASSIUM CHLORIDE 20 MEQ TABLET PO SCH ×2 (09:00→21:18)
[2016-12-24] MEDS: levETIRAcetam 250 MG TABLET PO SCH ×2 (09:01→21:18)
[2016-12-24] MEDS: CALCIUM (CARBONATE)/VITAMIN D 500 MG-200 UNIT TABLET PO SCH (09:02)
[2016-12-24] MEDS: LISINOPRIL 10 MG TABLET PO SCH (09:02)
[2016-12-24] MEDS: MAGNESIUM OXIDE 400 MG TABLET PO SCH (09:02)
[2016-12-24] MEDS: CETIRIZINE 10 MG TABLET PO SCH (09:02)
[2016-12-24] MEDS: PANTOPRAZOLE 40 MG TABLET PO SCH (09:02)
[2016-12-24] MEDS: MEMANTINE 5 MG TABLET PO SCH ×2 (09:02→21:17)
--- NOTE | 2016-12-24 09:05 | CT Report ---
CT sinus wo/w con Indication: Intractable headache. Comparison: None. Technique: CT of the sinuses was performed prior to and following administration of intravenous contrast. Coronal and sagittal MPR series additionally were performed. Findings: Air-fluid levels are present bilaterally in the maxillary sinuses. The maxillary sinuses demonstration of impression mucoperiosteal thickening. Air-fluid levels present within the right sphenoid. Left sphenoid is completely opacified. Ethmoid air cells are partially to completely opacified bilaterally. Frontal sinuses are hypoaerated. The intraorbital contents demonstrate no significant abnormalities. Imaged muscles of mastication are unremarkable. No unexpected areas of enhancement demonstrated involving the imaged muscles of mastication, soft tissues of the face orbits, or visualized intracranial structures. Impression: 1. Findings compatible with pansinusitis. 12/24/2016 8:55 AM PROCEDURE INTERPRETED AT [facility] DEPARTMENT OF RADIOLOGY Final Report Signed by: Dr. Chris Lopez
[2016-12-24] MEDS: LEVOFLOXACIN INJ 750 MG in PREMIX 1 EACH IV SCH (09:07)
[2016-12-24 09:23] LABS: Basophils # 0.1 10*3/uL (0.0-0.2); Basophils % 1.1 % (0.0-0.8); Eosinophils # 0.4 10*3/uL (0.0-0.87); Hematocrit 40.1 VOL% (35.7-47.0); Hemoglobin 12.4 GM/DL (12.0-16.0); Immature Granulocytes % 0.2 %; Immature Granulocytes Absolute 0.01 #; Lymphocytes # 2.5 10*3/uL (1.4-4.0); Lymphocytes % 45.6 % (21.3-54.2); Mean Corpuscular HGB Conc 30.9 GM/DL (32-36); Mean Corpuscular Hemoglobin 28 PG (27-34); Mean Corpuscular Volume 89.1 FL (87-102); Mean Platelet Volume 9.6 FL (9.6-12.0); Monocytes # 0.7 10*3/uL (0.11-0.8); Monocytes % 13.1 % (1.7-12.7); Neutrophils # 1.8 10*3/uL (1.4-7.4); Platelet Count 212 T/CUMM (130-400); Red Cell Distribution Width 14.3 % (9.3-17.3); White Blood Count 5.5 T/CUMM (4-12)
[2016-12-24 10:32] LABS: Burr Cells Slight; Elliptocytes Few; Eosinophils 8 % (0-10); Hypochromasia Slight; Lymphocytes 46 % (20-55); Macrocytosis Slight; Platelet Estimate Adequate; Segmented Neutrophils 33 % (50-85); Total Cells Counted 100
[2016-12-24] MEDS: LINEZOLID INJ 600 MG in PREMIX 1 EACH IV SCH ×2 (10:40→23:09)
--- NOTE | 2016-12-24 11:58 | Progress Note ---
Assessment and Plan - Time spent with patient Time spent with patient: Greater than 30 minutes (1) Sinusitis Status: Inactive Assessment and plan: I recommend continuing current treatment as she notes some improvement. I would like to see her next week after discharge after she is over this acute exacerbation as we will likely need to look into at least a minimal sinus surgery such as a balloon sinus plasty with ethmoidectomy to help her underlying symptoms. She will need medical clearance for this which I will asked Dr. Mcgrath if he feels she is able to have surgery. I do not think that she needs surgery during this acute exacerbation but we will try to get it on the schedule within the next few weeks so that we do not have continued recurrences. Thank you very much for this consult and please notify me if there is any additional questions I will try to continue to follow this patient during her stay. 12/24/2016 We will try to get in touch with Dr. Mcgrath and cardiology I think that since she is not improving we should consider performing a functional endoscopic sinus surgery and opening up her sinuses so that she can start to improve ideally I had like to do this on a more elective basis when she is not acutely ill but at this point her acute illness and she may not be getting better any time in the near future and risk versus reward may be in the favor of performing the surgery sooner. I will try to contact Dr. Mcgrath and Dr. Hidalgo cardiology and get them to clear her if possible and rather not anything could be done to improve her INR Current Visit: No Qualifiers: Sinusitis location: pansinusitis Chronicity: chronic Qualified Code(s): J32.4 - Chronic pansinusitis (2) Trigeminal neuralgia pain Status: Acute Current Visit: Yes (3) Intractable headache Status: Acute Current Visit: Yes Family Medicine PN Sub Interval history: Ms. Zamora continues to have frontal headache and facial pain consistent with her chronic sinusitis. I had planned on an elective sinus surgery in the future but because of her continued problems without improvement I think that we may need to consider that she needs this in order to improve. She will need to be cleared by cardiology and we may need something to bring her INR down so that bleeding will be less of a problem during and after surgery all try to contact both cardiology and Dr. Mcgrath and discuss this with them Exam (Progress Note) - Constitutional Vitals: Period Temp Pulse Resp BP Sys/Tavera Pulse Ox Last 24 Hr 97.5 F-98.4 F 68-97 20-22 102-161/69-106 90-96 General appearance: mild distress, over weight - Head Head exam: Present: normal inspection, normocephalic - Eye Eye exam: Present: EOMI Pupils: Present: YAMIL - ENT ENT exam: Present: normal exam, normal external ear exam, normal oropharynx - Neck Neck exam: Present: normal inspection - Respiratory Respiratory exam: Present: other (Short quick breaths secondary to pain otherwise no shortness of breath or difficulty breathing) - GI/Abdominal GI/Abdominal exam: Present: soft (Obese) - Extremities Exam Extremities exam: Present: normal inspection - Neurological Exam Neurological exam: Present: alert, oriented X3, other (Marked bilateral cranial nerve V branch 1 pain marked tenderness to palpation consistent with her chronic sinusitis) - Psychiatric Psychiatric exam: Present: normal affect, normal mood - Skin Skin exam: Present: normal color, warm Results - Labs CBC & BMP: 12/24/16 09:07 12/21/16 03:59 Lab Results: I have reviewed the past 24 hour labs - Diagnostic Findings Procedure: CT: pending, image reviewed by me, report reviewed by me (Chronic pansinusitis I recommend functional endoscopic sinus surgery) Quality Measures - Stroke Onset of Symptoms Date: 12/16/16 Onset of Symptoms Time: 05:30 Specialty Discharge - Follow Up or Referrals Follow up with: Edison Tenorio MD [Physician] - 01/21/17 9:30 am
[2016-12-24 12:02] LABS: Sedimentation Rate-Westergren 25 MM/HR (0-30)
[2016-12-24] MEDS ORDERED: SODIUM CHLORIDE 0.9% 250 ML IV PRN (14:29)
[2016-12-24] MEDS ORDERED: PHYTONADIONE 10 MG/1 ML AMP SUBCUT ONE (14:30)
[2016-12-24] MEDS: predniSONE 1 MG TABLET PO SCH (15:45)
--- NOTE | 2016-12-24 18:40 | Cardiology Consult Note ---
<Barbara Reno E - Last Filed: 12/24/16 18:30> Assessment and Plan - Time spent with patient Time spent with patient: Greater than 30 minutes (Due to assessment, plan, and documentation.) (1) Pre-operative cardiovascular examination Status: Acute Assessment and plan: 71-year-old female admitted with intractable headache, sinusitis, trigeminal neuralgia pain. Was planned for future sinus surgery but this was rescheduled for tomorrow due to her continued issues. We were asked to perform preoperative cardiovascular examination. Ms. Zamora is at moderate risk for surgery due to her multiple comorbidities. We will order an echocardiogram for further evaluation since this has not been recently done. Dr. Hidalgo will follow with further plan and addendum. Current Visit: Yes (2) Nonischemic cardiomyopathy Status: Chronic Current Visit: Yes (3) Chronic atrial fibrillation Status: Chronic Current Visit: Yes (4) Chronic anticoagulation Status: Chronic Current Visit: Yes (5) Dementia Status: Chronic Current Visit: Yes (6) Intractable headache Status: Acute Current Visit: Yes (7) Stroke Status: Chronic Current Visit: Yes (8) Trigeminal neuralgia pain Status: Acute Current Visit: Yes (9) History of cardiac pacemaker Status: Chronic Current Visit: No (10) Seizure disorder Status: Chronic Current Visit: No (11) long-standing hypertension Status: Chronic Current Visit: No History of Present Illness - Data of Consult Patient: known to practice within the last 3 years (followed by Dr. 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 Owen Ms. Zamora is a 71 year old -[place] female with a history of hypertension, chronic atrial fibrillation, chronic anticoagulation, and nonischemic cardiomyopathy. She is status post [employer] dual-chamber pacemaker November 06, 2003 for symptomatic bradycardia. She is status post generator change and lead testing November 26, [address] Swartz. She is status post CVA December 2010. Her family informs me that she has recently sustained a TIA. She was admitted to the hospital on 12/16/2016 with severe headache and abnormal CT of the brain. She she has been seen by ENT and is being treated for sinusitis, trigeminal neuralgia pain, and intractable headache. She is planned for an elective sinus surgery in the future but due to her continued problems, this is planned for tomorrow. Her INR has been elevated and she is currently receiving FFP to help improve this. Her family tells me that she has severe dyspnea on exertion at home and can hardly take a bath without having extreme shortness of breath. She is unable to climb 2 flights of stairs without difficulty. Her family also tells me that last weekend she complained of her chest hurting at that time her heart rate was found to be elevated. Much of the history is obtained from the family as they tell me the patient did not sleep hardly at all last night and has been given pain medicine to help with her headache. She will arouse to verbal stimuli but obtaining history directly from the patient is difficult. Given her history of chronic atrial fibrillation, advanced age, and [place] [employer] angina class III, she is at moderate risk for surgery. Dr. Hidalgo will follow with further plan and addendum. CC: Daniel Mcgrath MD - Home Medications and Allergies Home Medications: Home Medications Medication Instructions Recorded Confirmed Type Atorvastatin [Lipitor] 20 mg PO BEDTIME 04/25/15 12/16/16 History Cetirizine Tab [ZyrTEC Tab] 10 mg PO DAILY 04/25/15 12/16/16 History Cyanocobalamin (Vitamin B-12) 1,000 mcg IM Q30D 04/25/15 12/16/16 History [Liquid B12] Furosemide Tab [Lasix Tab] 40 mg PO BID 04/25/15 12/16/16 History HYDROcodone/ACETAMIN 5-325 [[place] 1 tablet PO Q6H PRN 04/25/15 12/16/16 History 5-325] Magnesium Oxide [Magox 400] 400 mg PO DAILY 04/25/15 12/16/16 History Montelukast Tab [Singulair Tab] 10 mg PO BEDTIME 04/25/15 12/16/16 History Omeprazole 20 mg PO DAILY 04/25/15 12/16/16 History Sotalol HCl [Betapace AF] 160 mg PO BID 04/25/15 12/16/16 History Warfarin [Coumadin] 2 mg PO SUTUWETHFRSA 04/25/15 12/16/16 History dilTIAZem HCl [Diltiazem HCl] 60 mg PO ACHS 04/25/15 12/16/16 History predniSONE [[place]] 3 mg PO 1200 04/25/15 12/16/16 History sulfaSALAzine [Sulfasalazine] 1,000 mg PO BID 04/25/15 12/16/16 History Adalimumab [Humira Pen] 40 mg SUBCUT Q14D 04/22/16 12/16/16 History Calcium (Carb)/Vit D 500-200 1 tablet PO DAILY 04/22/16 12/16/16 History [Oscal 500 + D] Fluticasone 50 Mcg Nasal [place] 1 spray BOTH NARES DAILY PRN 04/22/16 12/16/16 History [Flonase Nasal [place]] Lisinopril 10 mg PO DAILY 04/22/16 12/16/16 History Potassium Chloride Cap/Tab [K Dur] 60 meq PO BID 04/22/16 12/16/16 History levETIRAcetam [Levetiracetam ER] 750 mg PO BID 04/22/16 12/16/16 History Carvedilol [Coreg] 6.25 mg PO DAILY 10/30/16 12/16/16 History cloNIDine HCl [Clonidine HCl] 0.1 mg PO BEDTIME 10/30/16 12/16/16 History Acetaminophen Tab [Tylenol Tab] 650 mg PO Q6H PRN #0 tablet 11/04/16 12/16/16 Rx Warfarin Sodium 1 mg PO MO 12/16/16 12/16/16 History Allergies/Adverse Reactions: Allergies Allergy/AdvReac Type Severity Reaction Status Date / Time Penicillins Allergy ITCHING Verified 12/16/16 08:47 Review of systems: - Constitutional: Present: fatigue.headache(s),As per HPI. Absent: anorexia, chills, daytime sleepiness, excessive sweating, fever(s), frequent falls, increased appetite, lethargy, malaise, night sweats, stops breathing during sleep, weakness, weight gain, weight loss, - EENT Eyes: Present: As per HPI. Absent: blurry vision, diplopia, loss of vision Ears: Present: As per HPI. Absent: decreased hearing, ear discharge, ear pain Nose, mouth and throat: Present: Sinus pressure, headaches, as per HPI. Absent: dysphagia, epistaxis, hoarseness, lip swelling, nasal congestion, neck mass, neck pain, sore throat, throat swelling, tongue swelling, vertigo - Cardiovascular: Present: dyspnea on exertion, chest pain at rest, as per HPI. Absent: chest pain with activity, dyspnea, edema, claudication, diaphoresis, radiating jaw, neck or arm pain, lightheadedness, orthopnea, palpitations, PND - Respiratory: Present: dyspnea on exertion, as per HPI. Absent: dyspnea, cough , hemoptysis, wheezing, snoring, pain on inspiration - Gastrointestinal: Present: nausea, vomiting, As per HPI. Absent: abdominal pain, bloating, change in bowel habits, constipation, diarrhea, heartburn, hematemesis, hematochezia, loose stools, melena, - Genitourinary: Present: As per HPI. Absent: difficulty urinating, dysuria, flank pain, hematuria, nocturia, urinary frequency, urinary incontinence - Musculoskeletal: Present: As per HPI. Absent: arthralgias, back pain, joint swelling, limited range of motion, muscle cramps, muscle weakness, myalgias - Neurological: Present: headache(s), As per HPI. Absent: abnormal gait, abnormal speech, behavioral changes, confusion, convulsions, disequilibrium, dizziness, focal weakness, frequent falls, memory loss, numbness, paresthesias, radicular pain, syncope, tremor(s) - Psychiatric: Present: As per HPI. Absent: anxiety, confusion, depression, panic attacks - Endocrine: Present:fatigue, As per HPI. Absent: cold intolerance, heat intolerance, polydipsia, polyphagia - Hematologic/Lymphatic: Present: As per HPI. Absent: easy bleeding, easy bruising, lymphadenopathy Medical,Surgical,& Family Hx - Medical History Cardio: History of: CHF, Hypertension, Pacemaker Neurology: History of: Cerebrovascular Accident, Seizures, TIA HEENT: History of: Eye Problem (cataracts) Rheumatology: History of;: Rheumatoid Arthritis Respiratory: History of: Asthma, COPD Genitourinary: History of: Recurring Urinary Tract Infections Gastrointestinal: History of: GERD Hematology: History of: Blood Transfusion Reaction Reproductive: History of: Breast Cancer (L MASTECTOMY 1981) Other: History of: Cancer - Surgical History HEENT Surgeries: Surgical HX of: Eye Surgery (cataract removal) Abdominal Surgeries: Patient denies: Abdominal Surgery Reproductive Surgeries: Surgical HX of;: Breast Surgery, Hysterectomy Orthopedic Surgeries: Surgical HX of;: Total Knee Replacement (left knee) - Family History Family History: Reports;: Family Cancer (mother-brain), Family Hypertension ( mother, sister, brother), Family Stroke (mother) Denies;: Family Diabetes, Family Heart Disease - Social History Smoking Status: Never smoker Frequency of Alcohol Use: None Type of Drug Use: None Physical Examination Vital Signs Temp Pulse Resp BP Pulse Ox 96.8 F L 79 18 142/101 95 12/16/16 08:36 12/16/16 08:36 12/16/16 08:36 12/16/16 08:36 12/16/16 08:36 Other: General appearance: Drowsy but easily arousable to verbal stimuli. Normal weight, no acute distress. - Head Head exam: Present: normal inspection, normocephalic, atraumatic. Absent: hematoma, laceration - Eye Eye exam: Present: EOMI. Absent: conjunctival injection, nystagmus, periorbital swelling, scleral icterus, laceration to eyelids Pupils: Present: PERRL. Absent: constricted, dilated, fixed, irregular, unequal - ENT ENT exam: Present: normal exam, normal external ear exam - Neck Neck exam: Present: normal inspection. Absent: lymphadenopathy, meningismus, tenderness, thyromegaly - Respiratory Respiratory exam: Present: clear to auscultation bilaterally. Absent: accessory muscle use, chest wall tenderness - Cardiovascular Cardiovascular exam: Present: Irregular rate and rhythm. Absent: carotid bruit , gallop, JVD, rubs, murmur - GI/Abdominal GI/Abdominal exam: Present: normal bowel sounds, soft. Absent: distended, firm , guarding, hernia, mass, tenderness, rebound. - Extremities Exam Extremities exam: Present: normal inspection, normal capillary refill. Upper extremity pulses 2+. Lower extremity pulses 2+. Absent: calf tenderness, edema -Musculoskeletal Exam Musculoskeletal: Present: No Fluid Collection, No Pain, Normal Range of Motion - Back Exam Back exam: Present: normal inspection. Absent: muscle spasm, vertebral tenderness - Neurological Exam Neurological exam: Present: Drowsy but easily arousable to verbal stimuli. Oriented X3, grossly intact without resting or essential tremor - Psychiatric Psychiatric exam: Present: normal affect, normal mood - Skin Skin exam: Present: normal color, warm, dry, intact. Absent: cyanosis, diaphoretic, rash, urticaria Result/EKG - Labs CBC & BMP: 12/24/16 09:07 12/21/16 03:59 Lab Results: I have reviewed the past 24 hour labs Labs: Laboratory Results - last 24 hr 12/24/16 12/24/16 12/24/16 05:34 05:40 09:07 WBC 5.5 RBC 4.50 Hgb 12.4 Hct 40.1 MCV 89.1 MCH 28 MCHC 30.9 L RDW 14.3 Plt Count 212 MPV 9.6 Neut % (Auto) 32.0 L Lymph % (Auto) 45.6 [place] % (Auto) 13.1 H Eos % (Auto) 8.0 Baso % (Auto) 1.1 H Neut # (Auto) 1.8 Lymph # (Auto) 2.5 [place] # (Auto) 0.7 Eos # (Auto) 0.4 Baso # (Auto) 0.1 Total Counted 100 Immature Gran % 0.2 Nucleated RBC % 0.0 Immature Gran # 0.01 Segmented Neutrophils 33 L Lymphocytes 46 Monocytes 13 Eosinophils 8 Nucleated RBCs # 0.00 Platelet Estimate Adequate Hypochromasia Slight Macrocytosis Slight [place] Cells Slight Elliptocytes Few Morphology Comment ESR W[place] 25 INR 5.4 H* PT Patient/Control Mix 63.9 D C-Reactive Protein Blood Type O POSITIVE 12/24/16 09:07 WBC RBC Hgb Hct MCV MCH MCHC RDW Plt Count MPV Neut % (Auto) Lymph % (Auto) [place] % (Auto) Eos % (Auto) Baso % (Auto) Neut # (Auto) Lymph # (Auto) [place] # (Auto) Eos # (Auto) Baso # (Auto) Total Counted Immature Gran % Nucleated RBC % Immature Gran # Segmented Neutrophils Lymphocytes Monocytes Eosinophils Nucleated RBCs # Platelet Estimate Hypochromasia Macrocytosis Teague Cells Elliptocytes Morphology Comment ESR Westergren INR PT Patient/Control Mix C-Reactive Protein 0.56 H Blood Type - EKG EKG results: interpreted by me (Ventricular pacing with underlying atrial fibrillation) Quality Measures - Stroke Onset of Symptoms Date: 12/16/16 Onset of Symptoms Time: 05:30 Specialty Discharge - Follow Up or Referrals Follow up with: Edison Tenorio MD [Physician] - 01/21/17 9:30 am <Ac Hidalgo - Last Filed: 12/24/16 18:57> Assessment and Plan (1) CONNER (dyspnea on exertion) Status: Acute Current Visit: Yes (2) Intractable headache Status: Acute Current Visit: Yes (3) New onset of headaches Status: Acute Current Visit: Yes (4) Pre-operative cardiovascular examination Status: Acute Current Visit: Yes (5) Trigeminal neuralgia pain Status: Acute Current Visit: Yes (6) Chronic anticoagulation Status: Chronic Current Visit: Yes (7) Dementia Status: Chronic Current Visit: Yes (8) Nonischemic cardiomyopathy Status: Chronic Current Visit: Yes (9) Stroke Status: Chronic Current Visit: Yes (10) status post synchronized cardioversion Status: Acute Current Visit: No (11) History of cardiac pacemaker Status: Chronic Current Visit: No (12) History of stroke Status: Chronic Current Visit: No (13) Seizure disorder Status: Chronic Current Visit: No (14) Status post left mastectomy Status: Chronic Current Visit: No (15) long-standing hypertension Status: Chronic Current Visit: No History of Present Illness - Consult Narrative History of present illness: Ms. Zamora is a 71 year old female CC: Daniel Mcgrath MD Physical Examination Vital Signs Temp Pulse Resp BP Pulse Ox 96.8 F L 79 18 142/101 95 12/16/16 08:36 12/16/16 08:36 12/16/16 08:36 12/16/16 08:36 12/16/16 08:36 Result/EKG - Labs CBC & BMP: 12/24/16 09:07 12/21/16 03:59 Labs: Laboratory Results - last 24 hr 12/24/16 12/24/16 12/24/16 05:34 05:40 09:07 WBC 5.5 RBC 4.50 Hgb 12.4 Hct 40.1 MCV 89.1 MCH 28 MCHC 30.9 L RDW 14.3 Plt Count 212 MPV 9.6 Neut % (Auto) 32.0 L Lymph % (Auto) 45.6 [place] % (Auto) 13.1 H Eos % (Auto) 8.0 Baso % (Auto) 1.1 H Neut # (Auto) 1.8 Lymph # (Auto) 2.5 [place] # (Auto) 0.7 Eos # (Auto) 0.4 Baso # (Auto) 0.1 Total Counted 100 Immature Gran % 0.2 Nucleated RBC % 0.0 Immature Gran # 0.01 Segmented Neutrophils 33 L Lymphocytes 46 Monocytes 13 Eosinophils 8 Nucleated RBCs # 0.00 Platelet Estimate Adequate Hypochromasia Slight Macrocytosis Slight [place]ague Cells Slight Elliptocytes Few Morphology Comment ESR W[place] 25 INR 5.4 H* PT Patient/Control Mix 63.9 D C-Reactive Protein Blood Type O POSITIVE 12/24/16 09:07 WBC RBC Hgb Hct MCV MCH MCHC RDW Plt Count MPV Neut % (Auto) Lymph % (Auto) [place] % (Auto) Eos % (Auto) Baso % (Auto) Neut # (Auto) Lymph # (Auto) [place] # (Auto) Eos # (Auto) Baso # (Auto) Total Counted Immature Gran % Nucleated RBC % Immature Gran # Segmented Neutrophils Lymphocytes Monocytes Eosinophils Nucleated RBCs # Platelet Estimate Hypochromasia Macrocytosis [place] Cells Elliptocytes Morphology Comment ESR Westergren INR PT Patient/Control Mix C-Reactive Protein 0.56 H Blood Type
[2016-12-24] MEDS ORDERED: MAGNESIUM SULF RIDER 2 GM in PREMIX 1 EACH IV ONE (19:38)
[2016-12-24] MEDS: MONTELUKAST 10 MG TABLET PO SCH (21:19)
[2016-12-24] MEDS: ATORVASTATIN 20 MG TABLET PO SCH (21:19)
[2016-12-24] MEDS: OLANZapine 2.5 MG TABLET PO SCH (21:20)
[2016-12-25 04:44] LABS: INR 3.7
[2016-12-25 05:20] LABS: PT Patient Result 42.3 SECS
--- NOTE | 2016-12-25 08:15 | EKG Report ---
Stationary ECG Study [facility] Test Date: 12/25/2016 8:14:38 AM Pat Name: KATHY SALMON Department: Room: 217 Gender: F Carbonation Tester: LACY : 1945 Requested by: Mer Hidalgo Order Number: [id number] Reading MD: MER HIDALGO Intervals [place] Rate: 60 P: 999 IA: 0 QRS: 116 QRSD: 156 T: -45 QT: 534 QTc: 534 Interpretive Statements ELECTRONIC VENTRICULAR PACEMAKER ABNORMAL RHYTHM ECG Electronically Signed On 12-25-16 13:12:47 CDT by MER HIDALGO [email or web address]
--- NOTE | 2016-12-25 10:33 | Sleep Medicine Consult ---
Assessment and Plan (1) Unspecified sleep apnea Status: Acute Assessment and plan: This patient lacks a history of snoring, she certainly could have sleep apnea and it could be central in nature. She does have a history of stroke, atrial fib, and prior pacemaker. All of these are associated with his obstructive sleep apnea. She cannot be evaluated at this time due to her current condition and planned surgery. I discussed her case with anesthesiology and they are aware of the possibility of sleep apnea and will monitor her closely perioperatively. We will follow-up next week or in the sleep clinic. Current Visit: Yes (2) long-standing hypertension Status: Chronic Assessment and plan: The prevalence rate for obstructive sleep apnea patients with hypertension is 35 %. That rate can be as high as 80% in patients who require 4 or more medications for blood pressure control. Current Visit: No (3) recurrent atrial fibrillation Status: Acute Assessment and plan: The prevalence right for obstructive sleep apnea in patients with atrial fib ranges from 30-80%. Treating the underlying sleep apnea often can reduce recurrence by almost 50%. Current Visit: No History of Present Illness Chief complaint: Sleep apnea History of present illness: Ms. Zamora is a 71 year old female with a remote history of stroke admitted with recurrent headaches and severe sinusitis. She has significant cardiac issues with recurrent atrial fibrillation and previous pacemaker. Dr. Hidalgo saw her in consultation yesterday prior to planned surgery for her sinusitis. There was concern for sleep apnea. She does not have a history of snoring but does have a history of abnormal breathing during her sleep. Her daughter states that she does seem to struggle during her sleep. She does have symptoms of fatigue and sleepiness during the day. Home Medications Medication Instructions Recorded Confirmed Type Atorvastatin [Lipitor] 20 mg PO BEDTIME 04/25/15 12/16/16 History Cetirizine Tab [ZyrTEC Tab] 10 mg PO DAILY 04/25/15 12/16/16 History Cyanocobalamin (Vitamin B-12) 1,000 mcg IM Q30D 04/25/15 12/16/16 History [Liquid B12] Furosemide Tab [Lasix Tab] 40 mg PO BID 04/25/15 12/16/16 History HYDROcodone/ACETAMIN 5-325 [[place] 1 tablet PO Q6H PRN 04/25/15 12/16/16 History 5-325] Magnesium Oxide [Magox 400] 400 mg PO DAILY 04/25/15 12/16/16 History Montelukast Tab [Singulair Tab] 10 mg PO BEDTIME 04/25/15 12/16/16 History Omeprazole 20 mg PO DAILY 04/25/15 12/16/16 History Sotalol HCl [Betapace AF] 160 mg PO BID 04/25/15 12/16/16 History Warfarin [Coumadin] 2 mg PO SUTUWETHFRSA 04/25/15 12/16/16 History dilTIAZem HCl [Diltiazem HCl] 60 mg PO ACHS 04/25/15 12/16/16 History predniSONE [[place]] 3 mg PO 1200 04/25/15 12/16/16 History sulfaSALAzine [Sulfasalazine] 1,000 mg PO BID 04/25/15 12/16/16 History Adalimumab [Humira Pen] 40 mg SUBCUT Q14D 04/22/16 12/16/16 History Calcium (Carb)/Vit D 500-200 1 tablet PO DAILY 04/22/16 12/16/16 History [Oscal 500 + D] Fluticasone 50 Mcg Nasal [place] 1 spray BOTH NARES DAILY PRN 04/22/16 12/16/16 History [Flonase Nasal [place]] Lisinopril 10 mg PO DAILY 04/22/16 12/16/16 History Potassium Chloride Cap/Tab [K Dur] 60 meq PO BID 04/22/16 12/16/16 History levETIRAcetam [Levetiracetam ER] 750 mg PO BID 04/22/16 12/16/16 History Carvedilol [Coreg] 6.25 mg PO DAILY 10/30/16 12/16/16 History cloNIDine HCl [Clonidine HCl] 0.1 mg PO BEDTIME 10/30/16 12/16/16 History Acetaminophen Tab [Tylenol Tab] 650 mg PO Q6H PRN #0 tablet 11/04/16 12/16/16 Rx Warfarin Sodium 1 mg PO MO 12/16/16 12/16/16 History Allergies Allergy/AdvReac Type Severity Reaction Status Date / Time Penicillins Allergy ITCHING Verified 12/16/16 08:47 Review of systems: Difficult to obtain due to her current condition. Exam ([place]) H&P - Constitutional Vitals: Period Temp Pulse Resp BP Sys/[place] Pulse Ox Last 24 Hr 96 F-99.4 F 71-112 18-21 110-165/62-112 93-99 Exam: She is lethargic but arousable. Pupils are small and sluggish. The left is pinpoint right slightly enlarged compared to the left. Oropharynx with a class IV Mallampati exam. Oral mucosa. Neck supple without adenopathy or thyromegaly. No supraclavicular adenopathy is noted. Chest with symmetrical breath sounds without focal wheeze, rhonchi, or rales. Cardiac exam reveals a regular rhythm without murmur or gallop. Abdomen soft nontender extremities without increased edema. Neurologically, poorly responsive due to sedation. Medical,Surgical,& Family Hx - Medical History Cardio: History of: CHF, Hypertension, Pacemaker Neurology: History of: Cerebrovascular Accident, Seizures, TIA HEENT: History of: Eye Problem (cataracts) Rheumatology: History of;: Rheumatoid Arthritis Respiratory: History of: Asthma, COPD Genitourinary: History of: Recurring Urinary Tract Infections Gastrointestinal: History of: GERD Hematology: History of: Blood Transfusion Reaction Reproductive: History of: Breast Cancer (L MASTECTOMY 1981) Other: History of: Cancer - Surgical History HEENT Surgeries: Surgical HX of: Eye Surgery (cataract removal) Abdominal Surgeries: Patient denies: Abdominal Surgery Reproductive Surgeries: Surgical HX of;: Breast Surgery, Hysterectomy Orthopedic Surgeries: Surgical HX of;: Total Knee Replacement (left knee) - Family History Family History: Reports;: Family Cancer (mother-brain), Family Hypertension ( mother, sister, brother), Family Stroke (mother) Denies;: Family Diabetes, Family Heart Disease - Social History Smoking Status: Never smoker Frequency of Alcohol Use: None Type of Drug Use: None Results - Labs CBC & BMP: 12/24/16 09:07 12/21/16 03:59 Lab Results: I have reviewed the past 24 hour labs Quality Measures - Stroke Onset of Symptoms Date: 12/16/16 Onset of Symptoms Time: 05:30 Specialty Discharge - Follow Up or Referrals Follow up with: Edison Tenorio MD [Physician] - 01/21/17 9:30 am
[2016-12-25] MEDS: LEVOFLOXACIN INJ 750 MG in PREMIX 1 EACH IV SCH (10:52)
[2016-12-25] MEDS: DILTIAZEM 60 MG TABLET PO SCH ×4 (11:02→21:59)
[2016-12-25] MEDS: SULFAMETHOX/TRIMETHOPRIM 800-160 MG TABLET PO SCH ×2 (11:03→21:50)
[2016-12-25] MEDS: OXYMETAZOLINE 0.05% NASAL SPRAY 15 ML BOTTLE BOTH NARES SCH (11:03)
[2016-12-25] MEDS: sulfaSALAzine 500 MG TABLET PO SCH ×2 (11:03→21:59)
[2016-12-25] MEDS: FUROSEMIDE 40 MG TABLET PO SCH (11:03)
[2016-12-25] MEDS: DOCUSATE SODIUM 100 MG CAPSULE PO SCH ×2 (11:04→21:49)
[2016-12-25] MEDS: FLUTICASONE 50 MCG NASAL SPRAY 16 GM BOTTLE BOTH NARES SCH (11:04)
[2016-12-25] MEDS: POTASSIUM CHLORIDE 20 MEQ TABLET PO SCH ×2 (11:04→21:27)
[2016-12-25] MEDS: CELECOXIB 200 MG CAPSULE PO SCH (11:04)
[2016-12-25] MEDS: MEMANTINE 5 MG TABLET PO SCH ×2 (11:05→21:50)
[2016-12-25] MEDS: MAGNESIUM OXIDE 400 MG TABLET PO SCH (11:05)
[2016-12-25] MEDS: CALCIUM (CARBONATE)/VITAMIN D 500 MG-200 UNIT TABLET PO SCH (11:05)
[2016-12-25] MEDS: CETIRIZINE 10 MG TABLET PO SCH ×2 (11:06→16:30)
[2016-12-25 11:21] LABS: INR 1.9; PT Patient Result 20.6 SECS; Partial Thromboplastin Time 28.8 SECS (0-40)
[2016-12-25] MEDS ORDERED: LIDOCAINE 1%/EPI INJ 20 ML VIAL ONE (11:51)
[2016-12-25] MEDS ORDERED: OXYMETAZOLINE 0.05% NASAL SPRAY 15 ML BOTTLE ONE (11:51)
[2016-12-25] MEDS ORDERED: MUPIROCIN 2% OINT 22 GM TUBE TOP ONE (11:51)
[2016-12-25] MEDS: SOTALOL 80 MG TABLET PO SCH ×2 (11:52→21:59)
[2016-12-25] MEDS: CARVEDILOL 6.25 MG TABLET PO SCH ×2 (11:53→16:30)
[2016-12-25] MEDS: levETIRAcetam 250 MG TABLET PO SCH ×3 (11:54→21:59)
[2016-12-25] MEDS: LISINOPRIL 10 MG TABLET PO SCH ×2 (11:54→16:30)
[2016-12-25] MEDS: PANTOPRAZOLE 40 MG TABLET PO SCH (11:55)
[2016-12-25] MEDS: LINEZOLID INJ 600 MG in PREMIX 1 EACH IV SCH ×2 (11:55→21:31)
[2016-12-25] MEDS ORDERED: DEXAMETHASONE 4 MG/1 ML VIAL ONE (12:05)
[2016-12-25] MEDS ORDERED: ROCURONIUM 100 MG/10 ML VIAL IV ONE (12:34)
[2016-12-25] MEDS ORDERED: LIDOCAINE 2% 5 ML VIAL ONE (12:34)
[2016-12-25] MEDS ORDERED: FUROSEMIDE 20 MG/2 ML VIAL ONE (12:34)
[2016-12-25] MEDS ORDERED: ETOMIDATE 20 MG/10 ML VIAL IV ONE (12:34)
[2016-12-25] MEDS: predniSONE 1 MG TABLET PO SCH ×2 (12:43→16:29)
--- NOTE | 2016-12-25 13:07 | Family Practice Progress Note ---
Family Practice - PN: Subj Interval history: I am seeing Mrs. Zamora for Dr. Mcgrath today. I have tried to see her on rounds but she has been in surgery for most of this a.m. and early p.m.. I have reviewed her vitals, labs, and studies. She is otherwise doing well. Will try again to see later this p.m. if not I will review her records postsurgery on computer. Otherwise I will plan to see on rounds in a.m. Exam (Progress Note) - Constitutional Vitals: Period Temp Pulse Resp BP Sys/[place] Pulse Ox Last 24 Hr 96 F-99.4 F 69-112 18-20 110-165/62-112 94-100 Results - Labs CBC & BMP: 12/25/16 11:01 12/21/16 03:59 Quality Measures - Stroke Onset of Symptoms Date: 12/16/16 Onset of Symptoms Time: 05:30 Specialty Discharge - Follow Up or Referrals Follow up with: Edison Tenorio MD [Physician] - 01/21/17 9:30 am
[2016-12-25 13:16] LABS: ABG Base Excess 3.9 MMOL/L (-2.5-2.5); ABG HCO3 27.9 MMOL/L (20-26); ABG Oxygen Saturation 99.8 % (95-100); ABG PCO2 33.9 MM HG (35-48); ABG PH 7.506 (7.35-7.45); ABG TCO2 23.9 MMOL/L (23-27); Glucose Heart Surgery 112 MG/DL (74-106); Hematocrit Heart Surgery 33.8 PERCENT (37-47); Hemoglobin Heart Surgery 10.9 G/DL (12.0-16.0); Potassium Heart/CVR 3.1 MMOL/L (3.5-5.1)
[2016-12-25 13:22] LABS: Apearance,Urine CLEAR (Clear); Bilirubin,Urine Negative (Negative); Blood, Urine Negative (Negative); Glucose,Urine (UA) Negative (Negative); Hyaline Casts,Urine 19 /LPF (0-3); Ketones,Urine Negative (Negative); Mucus,Urine Occasional /LPF (Occasional); Nitrite,Urine Negative (Negative); Protein,Urine Negative; RBC,Urine 2 /HPF (0-4); Squamous Epithelial Cell,Urine Occasional /HPF (0-10); Urine Color Amber (Yellow); Urine Specific Gravity 1.027 (1.001-1.035); Urine Urobilinogen < 2.0 EU/DL (0.2-1.0); WBC,Urine 2 /HPF (0-6)
[2016-12-25 13:32] LABS: INR 1.7; PT Patient Result 18.1 SECS; Partial Thromboplastin Time 28.1 SECS (0-40)
[2016-12-25] MEDS ORDERED: SEVOFLURANE 1 UNIT/15 MINUTE INH ONE (14:45)
[2016-12-25 14:46] LABS: Alanine Aminotransferase 14 U/L (13-56); Albumin 2.9 G/DL (3.4-5.0); Alkaline Phosphatase 67 U/L (45-117); Aspartate Amino Transferase 20 U/L (0-37); Bilirubin,Total < 0.39 MG/DL (0.2-1.0); Blood Urea Nitrogen 6 MG/DL (7-18); Calcium 8.5 MG/DL (8.5-10.1); Glucose 106 MG/DL (74-106); Potassium 3.2 MMOL/L (3.5-5.1); Sodium 143 MMOL/L (136-145); Total Protein 5.9 G/DL (6.4-8.3)
[2016-12-25] MEDS ORDERED: fentaNYL 100 MCG/2 ML VIAL ONE (14:46)
[2016-12-25] MEDS ORDERED: SODIUM CHLORIDE 0.9% 1,000 ML IV ONE (14:46)
[2016-12-25] MEDS ORDERED: MIDAZOLAM 2 MG/2 ML VIAL ONE (14:46)
[2016-12-25] MEDS ORDERED: MIDAZOLAM 10 MG/2 ML VIAL ONE (14:46)
[2016-12-25 14:55] LABS: Basophils % 0.5 % (0.0-0.8); Eosinophils # 0.5 10*3/uL (0.0-0.87); Eosinophils % 8.6 % (0.00-10.9); Hematocrit 33.2 VOL% (35.7-47.0); Immature Granulocytes % 0.4 %; Immature Granulocytes Absolute 0.02 #; Lymphocytes # 1.4 10*3/uL (1.4-4.0); Lymphocytes % 24.9 % (21.3-54.2); Mean Corpuscular HGB Conc 31.3 GM/DL (32-36); Mean Corpuscular Hemoglobin 27 PG (27-34); Mean Corpuscular Volume 87.4 FL (87-102); Mean Platelet Volume 9.5 FL (9.6-12.0); Monocytes # 0.6 10*3/uL (0.11-0.8); Neutrophils # 3.1 10*3/uL (1.4-7.4); Neutrophils % 55.6 % (38.7-73.9); Platelet Count 167 T/CUMM (130-400); Red Cell Distribution Width 14.3 % (9.3-17.3); White Blood Count 5.6 T/CUMM (4-12)
[2016-12-25 14:56] LABS: Hemoglobin 10.4 GM/DL (12.0-16.0)
[2016-12-25 14:56] LABS: ABG Base Excess 2.4 MMOL/L (-2.5-2.5); ABG HCO3 26.6 MMOL/L (20-26); ABG PCO2 31.2 MM HG (35-48); ABG PH 7.509 (7.35-7.45)
[2016-12-25] MEDS: HYDROmorphone 2 MG/1 ML VIAL IV PRN (15:09)
[2016-12-25] MEDS: PROPOFOL 1,000 MG/100 ML BOTTLE IV SCH (15:11)
--- NOTE | 2016-12-25 15:28 | Pulmonology Consult Note ---
Assessment and Plan (1) Pansinusitis Status: Acute Assessment and plan: She is postop fiberoptic sinus surgery. She had some bleeding postoperatively requiring reintubation. She is on broad-spectrum antibiotics. Will need ENT to tell us when they feel it is safe to extubate from a standpoint of bleeding. PT/INR was hyper prolonged initially and is near normal now. Current Visit: Yes (2) Postop sinus surgery Status: Acute Assessment and plan: Patient on the ventilator after being reintubated in the recovery room because of bleeding. Current Visit: Yes (3) Severe hypertension Status: Acute Assessment and plan: Blood pressure 185/85. Patient not getting oral blood pressure medications. We will see if we can control this with a labetalol infusion. Current Visit: Yes (4) Nonischemic cardiomyopathy Status: Chronic Assessment and plan: I do not see an echocardiogram at this point. Current Visit: Yes (5) Chronic atrial fibrillation Status: Chronic Assessment and plan: Rate is controlled. She is in chronic atrial fib. Unable to anticoagulate due to bleeding from sinus surgery. Current Visit: Yes (6) Chronic anticoagulation Status: Chronic Assessment and plan: She was hyper prolonged on admission on Coumadin. Will need anticoagulants what she is over the perioperative period Current Visit: Yes History of Present Illness Chief complaint: Postop sinus surgery History of present illness: Ms. Zamora is a 71 year old female who came in a little over a week ago with a severe headache. She has had problems with high blood pressure. Brain CT was nonspecific. Turns out she had severe pansinusitis. She had surgery today with fiberoptic endoscopic sinus surgery. Postoperatively she was extubated but had some bleeding and so they reintubated her to protect her airway. She was on Coumadin on admission and had an INR of 5.4. It was down to 1.7 this morning. She is going to get some additional fresh frozen plasma. She is listed as having a history of COPD and asthma. She has never been a smoker. She also has a nonischemic cardiomyopathy. Home Medications Medication Instructions Recorded Confirmed Type Atorvastatin [Lipitor] 20 mg PO BEDTIME 04/25/15 12/16/16 History Cetirizine Tab [ZyrTEC Tab] 10 mg PO DAILY 04/25/15 12/16/16 History Cyanocobalamin (Vitamin B-12) 1,000 mcg IM Q30D 04/25/15 12/16/16 History [Liquid B12] Furosemide Tab [Lasix Tab] 40 mg PO BID 04/25/15 12/16/16 History HYDROcodone/ACETAMIN 5-325 [[place] 1 tablet PO Q6H PRN 04/25/15 12/16/16 History 5-325] Magnesium Oxide [Magox 400] 400 mg PO DAILY 04/25/15 12/16/16 History Montelukast Tab [Singulair Tab] 10 mg PO BEDTIME 04/25/15 12/16/16 History Omeprazole 20 mg PO DAILY 04/25/15 12/16/16 History Sotalol HCl [Betapace AF] 160 mg PO BID 04/25/15 12/16/16 History Warfarin [Coumadin] 2 mg PO SUTUWETHFRSA 04/25/15 12/16/16 History dilTIAZem HCl [Diltiazem HCl] 60 mg PO ACHS 04/25/15 12/16/16 History predniSONE [[place]] 3 mg PO 1200 04/25/15 12/16/16 History sulfaSALAzine [Sulfasalazine] 1,000 mg PO BID 04/25/15 12/16/16 History Adalimumab [Humira Pen] 40 mg SUBCUT Q14D 04/22/16 12/16/16 History Calcium (Carb)/Vit D 500-200 1 tablet PO DAILY 04/22/16 12/16/16 History [Oscal 500 + D] Fluticasone 50 Mcg Nasal [place] 1 spray BOTH NARES DAILY PRN 04/22/16 12/16/16 History [Flonase Nasal [place]] Lisinopril 10 mg PO DAILY 04/22/16 12/16/16 History Potassium Chloride Cap/Tab [K Dur] 60 meq PO BID 04/22/16 12/16/16 History levETIRAcetam [Levetiracetam ER] 750 mg PO BID 04/22/16 12/16/16 History Carvedilol [Coreg] 6.25 mg PO DAILY 10/30/16 12/16/16 History cloNIDine HCl [Clonidine HCl] 0.1 mg PO BEDTIME 10/30/16 12/16/16 History Acetaminophen Tab [Tylenol Tab] 650 mg PO Q6H PRN #0 tablet 11/04/16 12/16/16 Rx Warfarin Sodium 1 mg PO MO 12/16/16 12/16/16 History Allergies Allergy/AdvReac Type Severity Reaction Status Date / Time Penicillins Allergy ITCHING Verified 12/16/16 08:47 ROS unobtainable: due to endotracheal tube Exam (Pulmonay) H&P - Constitutional Vitals: Period Temp Pulse Resp BP Sys/Tavera Pulse Ox Last 24 Hr 96 F-99.4 F 69-112 10-20 110-197/62-112 94-100 Exam: Patient is sedated and not responsive. Blood pressure 185/85. Vital signs otherwise normal. She is on the ventilator with an orotracheal tube. Pupils react to light. Neck is supple. Chest is clear reveals equal breath sounds. Heart irregular without murmur. Abdomen soft no masses. Extremities no clubbing cyanosis edema. She has a bandage over her nose with a small amount of blood on it. Medical,Surgical,& Family Hx - Medical History Cardio: History of: CHF, Hypertension, Pacemaker Neurology: History of: Cerebrovascular Accident, Seizures, TIA HEENT: History of: Eye Problem (cataracts) Rheumatology: History of;: Rheumatoid Arthritis Respiratory: History of: Asthma, COPD Genitourinary: History of: Recurring Urinary Tract Infections Gastrointestinal: History of: GERD Hematology: History of: Blood Transfusion Reaction Reproductive: History of: Breast Cancer (L MASTECTOMY 1981) Other: History of: Cancer - Surgical History HEENT Surgeries: Surgical HX of: Eye Surgery (cataract removal) Abdominal Surgeries: Patient denies: Abdominal Surgery Reproductive Surgeries: Surgical HX of;: Breast Surgery, Hysterectomy Orthopedic Surgeries: Surgical HX of;: Total Knee Replacement (left knee) - Family History Family History: Reports;: Family Cancer (mother-brain), Family Hypertension ( mother, sister, brother), Family Stroke (mother) Denies;: Family Diabetes, Family Heart Disease - Social History Smoking Status: Never smoker Frequency of Alcohol Use: None Type of Drug Use: None Results - Labs CBC & BMP: 12/25/16 Unknown 12/25/16 Unknown Lab Results: I have reviewed the past 24 hour labs - Diagnostic Findings Procedure: Chest x-ray: image reviewed by me (Minimal right basilar atelectasis. ET tube in good position.) Quality Measures - Stroke Onset of Symptoms Date: 12/16/16 Onset of Symptoms Time: 05:30 Specialty Discharge - Follow Up or Referrals Follow up with: Edison Tenorio MD [Physician] - 01/21/17 9:30 am
--- NOTE | 2016-12-25 15:36 | XRay Report ---
XR chest 1V portable Indication: Intubated. Chest one view: Comparison 10/30/2016. Pacemaker and cardiomegaly are stable. Endotracheal tube is now present terminating 3 cm cephalad of the rebel. NG tube extends well into the stomach. Right IJ central line tip extends to the high right atrium. Lung volumes are decreased with progressive atelectasis. No pneumothorax or focal infiltrate shown. Impression: Lines and tubes as described. Continued cardiomegaly, pulmonary hypoinflation and atelectasis. PROCEDURE INTERPRETED AT [facility] DEPARTMENT OF RADIOLOGY Final Report Signed by: Mauri Durbin M.D.
--- NOTE | 2016-12-25 16:10 | Cardiology Progress Note ---
I, Fauzia Lobo RN, am scribing for, and in the presence of, Ac Hidalgo MD 16:04. Assessment and Plan (1) Pre-operative cardiovascular examination Status: Acute Assessment and plan: Initial assessment and plan 12/24/2016: Dyspnea on exertion Overweight Suspected sleep apnea Paroxysmal atrial fibrillation Antiarrhythmic drug From a cardiac standpoint her cardiac risk of noncardiac surgery is moderate for heart failure or paroxysmal atrial fibrillation. It is probably lower for [place] or cardiac . However she needs to proceed with the surgery. From my standpoint, okay to do so. She is about "best we can do". In the course of the evaluation, it was decided the patient needed to have an echocardiogram for the pts management. It was ordered. I will review it. If it is not done prior to the surgery it does not need to result in cancellation of the surgery. We will replete magnesium. She is on a beta-jonathan. The over anticoagulation is being treated with fresh frozen plasma. Assessment and plan 12/25/2016: Had some postop bleeding patient had to be reintubated then the nasal area is packed. She has elevated blood pressure. Agree with labetalol. Will also start her morning meds which have not given- Cardizem, sotalol, lisinopril, Carvedilol-patient will have her blood pressure. Mildly elevated INR may be partly why she had bleeding postop. I conferred care with the patient's nurse and Dr. Dmitri Devine, who has been consulted for management of her pulmonary status/vent settings. Repleted low potassium with liquid KCl per OG tube. Current Visit: Yes (2) Chronic anticoagulation Status: Chronic Current Visit: Yes (3) Chronic atrial fibrillation Status: Chronic Current Visit: Yes (4) Dementia Status: Chronic Current Visit: Yes (5) Nonischemic cardiomyopathy Status: Chronic Current Visit: Yes (6) History of cardiac pacemaker Status: Chronic Current Visit: No (7) long-standing hypertension Status: Chronic Current Visit: No (8) Suspected sleep apnea Status: Acute Current Visit: Yes (9) Overweight Status: Acute Current Visit: Yes (10) Dyspnea on exertion Status: Acute Current Visit: Yes (11) Paroxysmal atrial fibrillation Status: Acute Current Visit: Yes (12) custodial current use of antiarrhythmic drug Status: Acute Current Visit: Yes Cardiology - PN: Subj Interval history: Director Of Personnel: Dr. Owen Ms. Zamora is seen resting in bed. The nurse that she was given Fioricet last night for headache, she is still very drowsy from this. She does respond to painful stimuli, but she does not respond to voice. Her vital signs been stable throughout the night, blood pressure this morning 134/65. Her INR this morning is 3.7 after receiving a unit of fresh frozen plasma yesterday. According to the nurse she is about to get another unit this morning. They are still ensure if she is going to have her sinus or not today because of her labs. Exam (Progress Note) - Constitutional Vitals: Period Temp Pulse Resp BP Sys/Tavera Pulse Ox Last 24 Hr 96 F-99.4 F 71-112 18-21 110-165/63-112 93-99 General appearance: no acute distress, morbidly obese - Head Head exam: Absent: abrasion, hematoma - Eye Eye exam: Absent: periorbital swelling, laceration to eyelids - Neck Neck exam: Absent: tenderness - Respiratory Respiratory exam: Present: clear to auscultation bilaterally. Absent: accessory muscle use, chest wall tenderness - Cardiovascular Cardiovascular exam: Present: irregular rhythm. Absent: diastolic murmur, rubs , systolic murmur - GI/Abdominal GI/Abdominal exam: Present: normal bowel sounds, soft. Absent: distended, tenderness - Extremities Exam Extremities exam: Absent: edema - Neurological Exam Neurological exam: Present: other (Unable to assess because she is so drowsy). Absent: alert - Psychiatric Psychiatric exam: Present: other (Unable to assess because she is so drowsy) - Skin Skin exam: Present: warm, dry Result/EKG - Labs CBC & BMP: 12/25/16 Unknown 12/25/16 Unknown Lab Results: I have reviewed the past 24 hour labs Labs: Laboratory Results - last 24 hr 12/24/16 12/24/16 12/24/16 05:34 09:07 09:07 WBC 5.5 RBC 4.50 Hgb 12.4 Hct 40.1 MCV 89.1 MCH 28 MCHC 30.9 L RDW 14.3 Plt Count 212 MPV 9.6 Neut % (Auto) 32.0 L Lymph % (Auto) 45.6 [place] % (Auto) 13.1 H Eos % (Auto) 8.0 Baso % (Auto) 1.1 H Neut # (Auto) 1.8 Lymph # (Auto) 2.5 [place] # (Auto) 0.7 Eos # (Auto) 0.4 Baso # (Auto) 0.1 Total Counted 100 Immature Gran % 0.2 Nucleated RBC % 0.0 Immature Gran # 0.01 Segmented Neutrophils 33 L Lymphocytes 46 Monocytes 13 Eosinophils 8 Nucleated RBCs # 0.00 Platelet Estimate Adequate Hypochromasia Slight Macrocytosis Slight [place] Cells Slight Elliptocytes Few Morphology Comment ESR Westergren 25 INR PT Patient/Control Mix C-Reactive Protein 0.56 H Blood Type O POSITIVE 12/25/16 03:44 WBC RBC Hgb Hct MCV MCH MCHC RDW Plt Count MPV Neut % (Auto) Lymph % (Auto) [place] % (Auto) Eos % (Auto) Baso % (Auto) Neut # (Auto) Lymph # (Auto) [place] # (Auto) Eos # (Auto) Baso # (Auto) Total Counted Immature Gran % Nucleated RBC % Immature Gran # Segmented Neutrophils Lymphocytes Monocytes Eosinophils Nucleated RBCs # Platelet Estimate Hypochromasia Macrocytosis [place] Cells Elliptocytes Morphology Comment ESR Westergren INR 3.7 PT Patient/Control Mix 42.3 D C-Reactive Protein Blood Type - EKG EKG results: interpreted by me EKG shows: atrial fibrillation Quality Measures - Stroke Onset of Symptoms Date: 12/16/16 Onset of Symptoms Time: 05:30 Specialty Discharge - Follow Up or Referrals Follow up with: Edison Tenorio MD [Physician] - 01/21/17 9:30 am I, Ac Hidalgo MD, personally performed the services described in this documentation, ascribed by Fauzia Lobo RN in my presence, and it is both accurate and complete [id number] .
[2016-12-25 16:16] LABS: ABG Base Excess 5.8 MMOL/L (-2.5-2.5); ABG HCO3 29.6 MMOL/L (20-26); ABG Oxygen Saturation 96.3 % (95-100); ABG PCO2 35.8 MM HG (35-48); ABG PH 7.514 (7.35-7.45); ABG PO2 80.2 MM HG (80-95); ABG TCO2 25.7 MMOL/L (23-27)
[2016-12-25] MEDS ORDERED: POTASSIUM CHLORIDE 20 MEQ/15 ML UDCUP PO ONE (16:30)
--- NOTE | 2016-12-25 16:42 | ECHO Report ---
Paz Zamora Exam Date: 12/25/2016 10:24 Referring Physician: Technologist: Miriam Gillis Age: 71 Ht (in): 63 Wt (lb): 182 Gender: F Exam Location: [facility] Echo Indications: [place], chronic anticoag, A FIB, CVA BP: 156 / 87 HR: 112 Rhythm: Sinus Technical Quality: Good IMPRESSIONS Mild concentric left ventricular hypertrophy with diastolic dysfunction. Left ventricular ejection fraction is estimated at > 55 %. Moderately increased right atrial size. Severely increased left atrial diameter. Mild mitral valve sclerosis. Moderate mitral valve regurgitation. Mild aortic valve sclerosis. Mild tricuspid valve sclerosis. Moderate tricuspid valve regurgitation. Tricuspid regurgitation velocities suggest a PAP of 41.7 mmHg + RAP. Mild pulmonary valve regurgitation. Trivial pericardial effusion. MEASUREMENTS (Male / Female) Normal Values 2D ECHO LV Diastolic Diameter PLAX 4.6 cm 4.2 - 5.9 / 3.9 - 5.3 cm LV Systolic Diameter PLAX 3.1 cm LV Fractional Shortening PLAX 32.3 % IVS Diastolic Thickness 1.3 cm 0.6 - 1.0 / 0.6 - 0.9 cm LVPW Diastolic Thickness 1.1 cm 0.6 - 1.0 / 0.6 - 0.9 cm RV Internal Dim ED PLAX 2.1 cm Aortic Root Diameter 2.3 cm LA Systolic Diameter LX 4.7 cm 3.0 - 4.0 / 2.7 - 3.8 cm DOPPLER TR Peak Velocity 323.0 cm/s TR Peak Gradient 41.7 mmHg FINDINGS Left Ventricle Mildly increased septal wall thickness. Mildly increased posterior wall thickness. Mild concentric left ventricular hypertrophy with diastolic dysfunction. Left ventricular ejection fraction is estimated at > 55 %. Right Ventricle Normal right ventricular size. Right Atrium Moderately increased right atrial size. Left Atrium Severely increased left atrial diameter. Mitral Valve Mild mitral valve sclerosis. Moderate mitral valve regurgitation. Aortic Valve Mild aortic valve sclerosis. Tricuspid Valve Mild tricuspid valve sclerosis. Moderate tricuspid valve regurgitation. Tricuspid regurgitation velocities suggest a PAP of 41.7 mmHg + RAP. Pulmonic Valve Mild pulmonic valve sclerosis. Mild pulmonary valve regurgitation. Pericardium Trivial pericardial effusion. Aorta Normal size aortic root and proximal ascending aorta. Ac Hidalgo MD (Electronically Signed) Final Date: 25 December 2016 16:41
[2016-12-25 17:36] LABS: INR 1.9; Partial Thromboplastin Time 28.3 SECS (0-40)
[2016-12-25 17:53] LABS: PT Patient Result 20.4 SECS
[2016-12-25] MEDS ORDERED: PHYTONADIONE 10 MG/1 ML AMP SUBCUT ONE (17:59)
[2016-12-25] MEDS: MONTELUKAST 10 MG TABLET PO SCH (21:50)
[2016-12-25] MEDS: FUROSEMIDE 20 MG/2 ML VIAL IV SCH (21:58)
[2016-12-25] MEDS: OLANZapine 2.5 MG TABLET PO SCH (22:00)
[2016-12-26 04:30] LABS: ABG Base Excess 4.2 MMOL/L (-2.5-2.5); ABG HCO3 28.1 MMOL/L (20-26); ABG PCO2 28.6 MM HG (35-48); ABG PH 7.562 (7.35-7.45); ABG PO2 94.8 MM HG (80-95)
[2016-12-26 04:44] LABS: Basophils % 0.1 % (0.0-0.8); Hematocrit 33.4 VOL% (35.7-47.0); Hemoglobin 10.7 GM/DL (12.0-16.0); Immature Granulocytes % 0.4 %; Immature Granulocytes Absolute 0.03 #; Lymphocytes # 0.7 10*3/uL (1.4-4.0); Lymphocytes % 9.7 % (21.3-54.2); Mean Corpuscular Hemoglobin 28 PG (27-34); Mean Platelet Volume 9.8 FL (9.6-12.0); Monocytes # 0.7 10*3/uL (0.11-0.8); Monocytes % 9.2 % (1.7-12.7); Neutrophils # 5.8 10*3/uL (1.4-7.4); Neutrophils % 80.6 % (38.7-73.9); Platelet Count 189 T/CUMM (130-400); Red Blood Count 3.84 MC/CUMM (3.8-5.5); White Blood Count 7.2 T/CUMM (4-12)
[2016-12-26 04:58] LABS: INR 1.8; PT Patient Result 19.7 SECS; Partial Thromboplastin Time 27.8 SECS (0-40)
[2016-12-26 05:50] LABS: Calcium 8.6 MG/DL (8.5-10.1); Osmolality,Calculated 278.3 MOS/KG (273-304); Potassium 3.6 MMOL/L (3.5-5.1)
[2016-12-26] MEDS: LABETALOL INJ 200 MG in SODIUM CHLORIDE 0.9% 160 ML IV SCH ×2 (06:41→17:30)
[2016-12-26] MEDS: PROPOFOL 1,000 MG/100 ML BOTTLE IV SCH ×3 (06:44→16:10)
--- NOTE | 2016-12-26 07:33 | Pulmonology Progress Note ---
Pulmonary - PN: Subj Interval history: This 71-year-old black female had fiberoptic endoscopic sinus surgery yesterday. She had some bleeding in the recovery room post extubation and was reintubated. We have ventilated her overnight. ABGs look good this morning. Patient is sedated at the moment. We will wake her up and start on CPAP and see if we can get her extubated. Will need ENT to review any nosebleed prior to extubation to be sure it would be safe to remove the tube. Exam (Progress Note) - Constitutional Vitals: Period Temp Pulse Resp BP Sys/Tavera Pulse Ox Last 24 Hr 96.5 F-98.8 F 67-97 10-20 100-197/52-106 96-100 Exam: Patient is sedated on the ventilator. She has a bandage over her nose. Orotracheal tube in place. Vital signs normal. Pupils react to light. Chest sounds clear. Heart normal rate rhythm no murmurs. Abdomen soft nontender no masses. Bowel sounds present. Extremities no clubbing cyanosis edema Results - Labs CBC & BMP: 12/26/16 04:20 12/26/16 04:20 Lab Results: I have reviewed the past 24 hour labs - Diagnostic Findings Procedure: Chest x-ray: image reviewed by me (ET tube good position. Slightly increased interstitial infiltrates in the bases.) Assessment and Plan (1) Pansinusitis Status: Acute Assessment and plan: She is postop fiberoptic sinus surgery. She had some bleeding postoperatively requiring reintubation. She is on broad-spectrum antibiotics. Will need ENT to tell us when they feel it is safe to extubate from a standpoint of bleeding. PT/INR was hyper prolonged initially and is near normal now. 12/26/2016 status post FESS. Watch for nosebleed. Current Visit: Yes (2) Postop sinus surgery Status: Acute Assessment and plan: Patient on the ventilator after being reintubated in the recovery room because of bleeding. 12/26/2016 had some bleeding postop. Need this rechecked before extubation. Current Visit: Yes (3) Severe hypertension Status: Acute Assessment and plan: Blood pressure 185/85. Patient not getting oral blood pressure medications. We will see if we can control this with a labetalol infusion. 12/26/2016 blood pressure well controlled with labetalol infusion Current Visit: Yes (4) Nonischemic cardiomyopathy Status: Chronic Assessment and plan: I do not see an echocardiogram at this point. 12/26/2016 defer to cardiology. Current Visit: Yes (5) Chronic atrial fibrillation Status: Chronic Assessment and plan: Rate is controlled. She is in chronic atrial fib. Unable to anticoagulate due to bleeding from sinus surgery. 12/26/16 rate is controlled Current Visit: Yes (6) Chronic anticoagulation Status: Chronic Assessment and plan: She was hyper prolonged on admission on Coumadin. Will need anticoagulants what she is over the perioperative period 12/26/2016 INR still slightly prolonged at 1.8. Current Visit: Yes Specialty Discharge - Follow Up or Referrals Follow up with: Edison Tenorio MD [Physician] - 01/21/17 9:30 am
--- NOTE | 2016-12-26 07:50 | EKG Report ---
Stationary ECG Study [facility] Test Date: 12/26/2016 7:50:51 AM Pat Name: KATHY SALMON Department: Room: 115 Gender: F Paper Stripper: CLEM : 1945 Requested by: Ac Hidalgo Order Number: [id number] Reading MD: JOSE M NOVA Intervals [place] Rate: 76 P: 999 WV: 0 QRS: 103 QRSD: 80 T: 72 QT: 375 QTc: 406 Interpretive Statements ATRIAL FIBRILLATION MARKED RIGHT AXIS DEVIATION LOW QRS VOLTAGE POSSIBLE ANTERIOR MYOCARDIAL INFARCTION, PROBABLY OLD Electronically Signed On 12-28-16 08:46:13 CDT by JOSE M NOVA [email or web address]
[2016-12-26] MEDS: DILTIAZEM 60 MG TABLET PO SCH ×4 (08:14→21:33)
[2016-12-26] MEDS: FUROSEMIDE 20 MG/2 ML VIAL IV SCH ×2 (08:14→17:29)
[2016-12-26] MEDS: DOCUSATE SODIUM 100 MG CAPSULE PO SCH ×2 (08:15→21:27)
[2016-12-26] MEDS: MAGNESIUM OXIDE 400 MG TABLET PO SCH (08:15)
[2016-12-26] MEDS: CALCIUM (CARBONATE)/VITAMIN D 500 MG-200 UNIT TABLET PO SCH (08:15)
[2016-12-26] MEDS: levETIRAcetam 250 MG TABLET PO SCH ×2 (08:17→21:50)
[2016-12-26] MEDS: CARVEDILOL 6.25 MG TABLET PO SCH (08:18)
[2016-12-26] MEDS: LISINOPRIL 10 MG TABLET PO SCH (08:18)
[2016-12-26] MEDS: SOTALOL 80 MG TABLET PO SCH ×2 (08:19→21:50)
[2016-12-26] MEDS: sulfaSALAzine 500 MG TABLET PO SCH ×2 (08:19→21:27)
[2016-12-26] MEDS: POTASSIUM CHLORIDE 20 MEQ TABLET PO SCH ×2 (08:20→21:27)
[2016-12-26] MEDS: SULFAMETHOX/TRIMETHOPRIM 800-160 MG TABLET PO SCH ×2 (08:20→21:27)
[2016-12-26] MEDS: LEVOFLOXACIN INJ 750 MG in PREMIX 1 EACH IV SCH (08:21)
[2016-12-26] MEDS: PANTOPRAZOLE 40 MG TABLET PO SCH (08:21)
[2016-12-26] MEDS: FLUTICASONE 50 MCG NASAL SPRAY 16 GM BOTTLE BOTH NARES SCH (08:21)
[2016-12-26] MEDS: MEMANTINE 5 MG TABLET PO SCH ×2 (08:21→21:26)
[2016-12-26] MEDS: CETIRIZINE 10 MG TABLET PO SCH (08:22)
--- NOTE | 2016-12-26 10:12 | Progress Note ---
Assessment and Plan - Time spent with patient Time spent with patient: Less than 30 minutes (1) Sinusitis Status: Inactive Assessment and plan: I recommend continuing current treatment as she notes some improvement. I would like to see her next week after discharge after she is over this acute exacerbation as we will likely need to look into at least a minimal sinus surgery such as a balloon sinus plasty with ethmoidectomy to help her underlying symptoms. She will need medical clearance for this which I will asked Dr. Mcgrath if he feels she is able to have surgery. I do not think that she needs surgery during this acute exacerbation but we will try to get it on the schedule within the next few weeks so that we do not have continued recurrences. Thank you very much for this consult and please notify me if there is any additional questions I will try to continue to follow this patient during her stay. 12/24/2016 We will try to get in touch with Dr. Mcgrath and cardiology I think that since she is not improving we should consider performing a functional endoscopic sinus surgery and opening up her sinuses so that she can start to improve ideally I had like to do this on a more elective basis when she is not acutely ill but at this point her acute illness and she may not be getting better any time in the near future and risk versus reward may be in the favor of performing the surgery sooner. I will try to contact Dr. Mcgrath and Dr. Hidalgo cardiology and get them to clear her if possible and rather not anything could be done to improve her INR 12/26/2016 postop day #1 status post functional endoscopic sinus surgery healing well with some continued epistaxis I discussed this with Dr. Devine and we felt it best to give her 1 more day prior to starting extubation because of the amount of continued epistaxis most likely from the continued coagulopathy and her chronic disease I am hopeful that tomorrow will be much better. Current Visit: No Qualifiers: Sinusitis location: pansinusitis Chronicity: chronic Qualified Code(s): J32.4 - Chronic pansinusitis (2) Trigeminal neuralgia pain Status: Acute Current Visit: Yes (3) Intractable headache Status: Acute Current Visit: Yes Family Medicine PN Sub Interval history: Postop day #1 status post functional endoscopic sinus surgery for chronic sinusitis. She has had more postoperative epistaxis then expected probably secondary to her coagulopathy that had been improved with cryoprecipitate prior to the procedure but still suboptimal to help stop the epistaxis even with the packing in place. She is currently sedated on the ventilator with her blood pressure control with labetalol infusion which I agree with. Exam (Progress Note) - Constitutional Vitals: Period Temp Pulse Resp BP Sys/Tavera Pulse Ox Last 24 Hr 96.5 F-98.8 F 67-87 10-33 100-197/52-106 96-100 General appearance: over weight, other (Intubated and sedated comfortable) - Head Head exam: Present: normal inspection, normocephalic - ENT ENT exam: Present: normal exam, normal external ear exam, normal oropharynx, other (Bilateral mild epistaxis most likely from clot breakdown status post functional endoscopic sinus surgery no gross hemorrhage that would necessitate reexploration or additional packing at this point.) - Neck Neck exam: Present: normal inspection - Respiratory Respiratory exam: Present: other (Intubated and on the ventilator) - GI/Abdominal GI/Abdominal exam: Present: soft (Obese) - Extremities Exam Extremities exam: Present: normal inspection - Neurological Exam Neurological exam: Present: other (Intubated and sedated unable to examine) - Psychiatric Psychiatric exam: Present: other (Intubated and sedated unable to examine) - Skin Skin exam: Present: normal color, warm Results - Labs CBC & BMP: 12/26/16 04:20 12/26/16 04:20 Lab Results: I have reviewed the past 24 hour labs Quality Measures - Stroke Onset of Symptoms Date: 12/16/16 Onset of Symptoms Time: 05:30 Specialty Discharge - Follow Up or Referrals Follow up with: Edison Tenorio MD [Physician] - 01/21/17 9:30 am
[2016-12-26] MEDS: LINEZOLID INJ 600 MG in PREMIX 1 EACH IV SCH ×2 (10:53→21:22)
[2016-12-26] MEDS: predniSONE 1 MG TABLET PO SCH (12:42)
--- NOTE | 2016-12-26 12:51 | XRay Report ---
Exam: XR chest 1V portable Indication: Feeding tube placement Comparison study: 12/26/2016 at 3:01 AM Findings: Esophagogastric tube is noted within the stomach with the tip directed inferiorly. Cardiac silhouette is enlarged, similar to prior. Right chest Mediport is partially imaged. Endotracheal tube is partially imaged but appears similar position. Impression: Feeding tube within the stomach. PROCEDURE INTERPRETED AT [facility] DEPARTMENT OF RADIOLOGY Final Report Signed by: Chivo Mullins
--- NOTE | 2016-12-26 14:32 | XRay Report ---
Exam: XR chest 1V portable Indication: Intubated Comparison study: 12/25/2016 Findings: Endotracheal and esophagogastric tubes are in similar position. Right-sided central venous catheter and pacemaker device are also in similar position. Cardiac silhouette remains enlarged. Perihilar and basilar interstitial and airspace opacities are slightly increased from prior. There is no pneumothorax. Osseous structures are stable. Impression: Stable position of support tubes and lines. Slight worsening of perihilar and basilar opacities may represent atelectasis or developing infectious/inflammatory infiltrates with trace pleural effusions also suspected. PROCEDURE INTERPRETED AT [facility] DEPARTMENT OF RADIOLOGY Final Report Signed by: Chivo Mullins
--- NOTE | 2016-12-26 17:16 | Family Practice Progress Note ---
Family Practice - PN: Subj Interval history: Patient is stable at present. She is tolerating the ventilator well. He continues to have some oozing from the sinus surgery. Her H&H has remained stable. Her other labs are stable at present. INR is still elevated at 1.8. Blood pressure is now under good control off medications. Staff not aware of any acute problems. Staff reports that she is moving all extremities. Lungs are clear to auscultation abdomen is soft. We will continue present treatment plan and hopefully can extubate in a.m. Exam (Progress Note) - Constitutional Vitals: Period Temp Pulse Resp BP Sys/Tavera Pulse Ox Last 24 Hr 96.7 F-97.5 F 67-87 10-33 100-151/53-81 96-100 Results - Labs CBC & BMP: 12/26/16 04:20 12/26/16 04:20 Quality Measures - Stroke Onset of Symptoms Date: 12/16/16 Onset of Symptoms Time: 05:30 Specialty Discharge - Follow Up or Referrals Follow up with: Edison Tenorio MD [Physician] - 01/21/17 9:30 am
--- NOTE | 2016-12-26 19:50 | Cardiology Progress Note ---
Assessment and Plan (1) Pre-operative cardiovascular examination Status: Acute Assessment and plan: Initial assessment and plan 12/24/2016: Dyspnea on exertion Overweight Suspected sleep apnea Paroxysmal atrial fibrillation Antiarrhythmic drug From a cardiac standpoint her cardiac risk of noncardiac surgery is moderate for heart failure or paroxysmal atrial fibrillation. It is probably lower for [place] or cardiac . However she needs to proceed with the surgery. From my standpoint, okay to do so. She is about "best we can do". In the course of the evaluation, it was decided the patient needed to have an echocardiogram for the pts management. It was ordered. I will review it. If it is not done prior to the surgery it does not need to result in cancellation of the surgery. We will replete magnesium. She is on a beta-jonathan. The over anticoagulation is being treated with fresh frozen plasma. Assessment and plan 12/25/2016: Had some postop bleeding patient had to be reintubated then the nasal area is packed. She has elevated blood pressure. Agree with labetalol. Will also start her morning meds which have not given- Cardizem, sotalol, lisinopril, Carvedilol-patient will have her blood pressure. Mildly elevated INR may be partly why she had bleeding postop. I conferred care with the patient's nurse and Dr. Dmitri Devine, who has been consulted for management of her pulmonary status/vent settings. Repleted low potassium with liquid KCl per OG tube. 12/26/16: Plan/recommendation: No significant atrial arrhythmia. Remains off anticoagulation. Some ENT bleeding. Continue ET tube and to protect airway. Continue to get antiarrhythmic/rate control medications through NG tube. Watch rhythm. Current Visit: Yes (2) Chronic anticoagulation Status: Chronic Current Visit: Yes (3) Chronic atrial fibrillation Status: Chronic Current Visit: Yes (4) Dementia Status: Chronic Current Visit: Yes (5) Nonischemic cardiomyopathy Status: Chronic Current Visit: Yes (6) History of cardiac pacemaker Status: Chronic Current Visit: No (7) long-standing hypertension Status: Chronic Current Visit: No (8) Suspected sleep apnea Status: Acute Current Visit: Yes (9) Overweight Status: Acute Current Visit: Yes (10) Dyspnea on exertion Status: Acute Current Visit: Yes (11) Paroxysmal atrial fibrillation Status: Acute Current Visit: Yes (12) long term current use of antiarrhythmic drug Status: Acute Current Visit: Yes Cardiology - PN: Subj Interval history: No chest pain or shortness of breath or nurses. She remains on the vent because of some mild ongoing ENT bleeding. Exam (Progress Note) - Constitutional Vitals: Period Temp Pulse Resp BP Sys/Tavera Pulse Ox Last 24 Hr 96.9 F-97.5 F 66-87 10-33 90-151/45-81 97-100 Exam: HEENT: Pupils equal, reactive to light and accommodation Neck: NoJVD or bruit Lungs clear to auscultation Heart: Regular rhythm rate with normal S1 and S2. Apical S4 Abdomen: No hepatosplenomegaly Spine/extremities: No clubbing, cyanosis, or edema Neuro: Nonfocal Psych: No depression or anxiety Result/EKG - Labs CBC & BMP: 12/26/16 04:20 12/26/16 04:20 Labs: Laboratory Results - last 24 hr 12/26/16 12/26/16 12/26/16 04:20 04:20 04:20 WBC 7.2 RBC 3.84 Hgb 10.7 L Hct 33.4 L MCV 87.0 MCH 28 MCHC 32.0 RDW 14.0 Plt Count 189 MPV 9.8 Neut % (Auto) 80.6 H Lymph % (Auto) 9.7 L [place] % (Auto) 9.2 Eos % (Auto) 0.0 Baso % (Auto) 0.1 Neut # (Auto) 5.8 Lymph # (Auto) 0.7 L [place] # (Auto) 0.7 Eos # (Auto) 0.0 Baso # (Auto) 0.0 Immature Gran % 0.4 Nucleated RBC % 0.0 Immature Gran # 0.03 Nucleated RBCs # 0.00 INR PT Patient/Control Mix Circ Anticoag PTT ABG pH 7.562 H ABG pCO2 28.6 L ABG pO2 94.8 ABG HCO3 28.1 H ABG Total CO2 23.0 ABG O2 Saturation 98.0 ABG Base Excess 4.2 H Sodium 141 Potassium 3.6 Chloride 107 Carbon Dioxide 25 Anion Gap 12.6 BUN 5 L Creatinine 1.10 H GFR Calculation 62 BUN/Creatinine Ratio 4.00 L Glucose 118 H Calculated Osmolality 278.3 Calcium 8.6 Magnesium 2.0 12/26/16 04:20 WBC RBC Hgb Hct MCV MCH MCHC RDW Plt Count MPV Neut % (Auto) Lymph % (Auto) [place] % (Auto) Eos % (Auto) Baso % (Auto) Neut # (Auto) Lymph # (Auto) [place] # (Auto) Eos # (Auto) Baso # (Auto) Immature Gran % Nucleated RBC % Immature Gran # Nucleated RBCs # INR 1.8 PT Patient/Control Mix 19.7 Circ Anticoag PTT 27.8 ABG pH ABG pCO2 ABG pO2 ABG HCO3 ABG Total CO2 ABG O2 Saturation ABG Base Excess Sodium Potassium Chloride Carbon Dioxide Anion Gap BUN Creatinine GFR Calculation BUN/Creatinine Ratio Glucose Calculated Osmolality Calcium Magnesium Quality Measures - Stroke Onset of Symptoms Date: 12/16/16 Onset of Symptoms Time: 05:30 Specialty Discharge - Follow Up or Referrals Follow up with: Edison Tenorio MD [Physician] - 01/21/17 9:30 am
[2016-12-26] MEDS: MONTELUKAST 10 MG TABLET PO SCH (21:26)
[2016-12-26] MEDS: OLANZapine 2.5 MG TABLET PO SCH (21:36)
[2016-12-27 04:41] LABS: ABG Base Excess 2.8 MMOL/L (-2.5-2.5); ABG HCO3 26.9 MMOL/L (20-26); ABG Oxygen Saturation 97.9 % (95-100); ABG PCO2 31.3 MM HG (35-48); ABG PH 7.516 (7.35-7.45)
[2016-12-27 04:51] LABS: Basophils % 0.2 % (0.0-0.8); Eosinophils # 0.2 10*3/uL (0.0-0.87); Eosinophils % 2.8 % (0.00-10.9); Hematocrit 30.3 VOL% (35.7-47.0); Hemoglobin 9.7 GM/DL (12.0-16.0); Immature Granulocytes % 0.2 %; Immature Granulocytes Absolute 0.02 #; Lymphocytes # 1.9 10*3/uL (1.4-4.0); Lymphocytes % 23.2 % (21.3-54.2); Mean Corpuscular Hemoglobin 28 PG (27-34); Mean Corpuscular Volume 86.8 FL (87-102); Mean Platelet Volume 9.7 FL (9.6-12.0); Monocytes # 0.9 10*3/uL (0.11-0.8); Monocytes % 11.3 % (1.7-12.7); Neutrophils # 5.1 10*3/uL (1.4-7.4); Neutrophils % 62.3 % (38.7-73.9); Platelet Count 179 T/CUMM (130-400); Red Blood Count 3.49 MC/CUMM (3.8-5.5); Red Cell Distribution Width 14.5 % (9.3-17.3); White Blood Count 8.1 T/CUMM (4-12)
[2016-12-27 05:19] LABS: Alanine Aminotransferase 11 U/L (13-56); Albumin 2.6 G/DL (3.4-5.0); Alkaline Phosphatase 62 U/L (45-117); Aspartate Amino Transferase 12 U/L (0-37); Bilirubin,Total < 0.39 MG/DL (0.2-1.0); Blood Urea Nitrogen 7 MG/DL (7-18); Calcium 7.9 MG/DL (8.5-10.1); Glucose 101 MG/DL (74-106); Osmolality,Calculated 287.6 MOS/KG (273-304); Potassium 3.5 MMOL/L (3.5-5.1); Sodium 146 MMOL/L (136-145); Total Protein 5.4 G/DL (6.4-8.3)
--- NOTE | 2016-12-27 07:25 | Pulmonology Progress Note ---
Pulmonary - PN: Subj Interval history: This 71-year-old black female had fiberoptic endoscopic sinus surgery yesterday. She had some bleeding in the recovery room post extubation and was reintubated. We have ventilated her overnight. ABGs look good this morning. Patient is sedated at the moment. We will wake her up and start on CPAP and see if we can get her extubated. Will need ENT to review any nosebleed prior to extubation to be sure it would be safe to remove the tube. 12/27/2016 patient tolerating CPAP. Near ready for extubation. Await word from ENT on whether her bleeding is controlled. Exam (Progress Note) - Constitutional Vitals: Period Temp Pulse Resp BP Sys/Tavera Pulse Ox Last 24 Hr 97.3 F-97.9 F 60-87 10-33 90-151/45-78 97-100 Exam: Patient is sedated on the ventilator. She has a bandage over her nose. Orotracheal tube in place. Vital signs normal. Pupils react to light. Chest sounds clear. Heart normal rate rhythm no murmurs. Abdomen soft nontender no masses. Bowel sounds present. Extremities no clubbing cyanosis edema. Little change from yesterday. Results - Labs CBC & BMP: 12/27/16 04:45 12/27/16 04:46 Lab Results: I have reviewed the past 24 hour labs - Diagnostic Findings Procedure: Chest x-ray: image reviewed by me (Borderline cardiomegaly. Minimal infiltrate. Little change from yesterday.) Assessment and Plan (1) Pansinusitis Status: Acute Assessment and plan: She is postop fiberoptic sinus surgery. She had some bleeding postoperatively requiring reintubation. She is on broad-spectrum antibiotics. Will need ENT to tell us when they feel it is safe to extubate from a standpoint of bleeding. PT/INR was hyper prolonged initially and is near normal now. 12/26/2016 status post FESS. Watch for nosebleed. 12/27/2016 post surgery. Should be improved. Continuing antibiotics. Current Visit: Yes (2) Postop sinus surgery Status: Acute Assessment and plan: Patient on the ventilator after being reintubated in the recovery room because of bleeding. 12/26/2016 had some bleeding postop. Need this rechecked before extubation. 12/27/2016 does not appear to be having any further bleeding. However await word from ENT before considering extubation to protect her airway. Current Visit: Yes (3) Severe hypertension Status: Acute Assessment and plan: Blood pressure 185/85. Patient not getting oral blood pressure medications. We will see if we can control this with a labetalol infusion. 12/26/2016 blood pressure well controlled with labetalol infusion 12/27/2016 blood pressure well controlled Current Visit: Yes (4) Nonischemic cardiomyopathy Status: Chronic Assessment and plan: I do not see an echocardiogram at this point. 12/26/2016 defer to cardiology. Current Visit: Yes (5) Chronic atrial fibrillation Status: Chronic Assessment and plan: Rate is controlled. She is in chronic atrial fib. Unable to anticoagulate due to bleeding from sinus surgery. 12/26/16 rate is controlled 12/27/2016 atrial fibrillation with controlled rate Current Visit: Yes (6) Chronic anticoagulation Status: Chronic Assessment and plan: She was hyper prolonged on admission on Coumadin. Will need anticoagulants what she is over the perioperative period 12/26/2016 INR still slightly prolonged at 1.8. 12/27/2016 recheck INR. We will give her vitamin K Current Visit: Yes Specialty Discharge - Follow Up or Referrals Follow up with: Edison Tenorio MD [Physician] - 01/21/17 9:30 am
[2016-12-27] MEDS ORDERED: PHYTONADIONE 10 MG/1 ML AMP SUBCUT ONE (07:28)
[2016-12-27] MEDS: PROPOFOL 1,000 MG/100 ML BOTTLE IV SCH ×3 (07:56→22:53)
--- NOTE | 2016-12-27 08:28 | Progress Note ---
Assessment and Plan - Time spent with patient Time spent with patient: Less than 30 minutes (1) Sinusitis Status: Inactive Assessment and plan: I recommend continuing current treatment as she notes some improvement. I would like to see her next week after discharge after she is over this acute exacerbation as we will likely need to look into at least a minimal sinus surgery such as a balloon sinus plasty with ethmoidectomy to help her underlying symptoms. She will need medical clearance for this which I will asked Dr. Mcgrath if he feels she is able to have surgery. I do not think that she needs surgery during this acute exacerbation but we will try to get it on the schedule within the next few weeks so that we do not have continued recurrences. Thank you very much for this consult and please notify me if there is any additional questions I will try to continue to follow this patient during her stay. 12/24/2016 We will try to get in touch with Dr. Mcgrath and cardiology I think that since she is not improving we should consider performing a functional endoscopic sinus surgery and opening up her sinuses so that she can start to improve ideally I had like to do this on a more elective basis when she is not acutely ill but at this point her acute illness and she may not be getting better any time in the near future and risk versus reward may be in the favor of performing the surgery sooner. I will try to contact Dr. Mcgrath and Dr. Hidalgo cardiology and get them to clear her if possible and rather not anything could be done to improve her INR 12/26/2016 postop day #1 status post functional endoscopic sinus surgery healing well with some continued epistaxis I discussed this with Dr. Devine and we felt it best to give her 1 more day prior to starting extubation because of the amount of continued epistaxis most likely from the continued coagulopathy and her chronic disease I am hopeful that tomorrow will be much better. 12/27/[address] Devine and she is no longer bleeding that we could start to wean and potentially extubate the patient she appears to be doing much better. He is in agreement with the above and will start this process today in hopes that she can be extubated today. Current Visit: No Qualifiers: Sinusitis location: pansinusitis Chronicity: chronic Qualified Code(s): J32.4 - Chronic pansinusitis (2) Trigeminal neuralgia pain Status: Acute Current Visit: Yes (3) Intractable headache Status: Acute Current Visit: Yes Family Medicine PN Sub Interval history: Postop day #2 functional sinus surgery with coagulopathy. Currently her epistaxis is well controlled she has had no bleeding from the OG tube. No new complaints or concerns voiced from nursing. Exam (Progress Note) - Constitutional Vitals: Period Temp Pulse Resp BP Sys/Tavera Pulse Ox Last 24 Hr 97.3 F-97.9 F 60-87 10-33 90-151/45-78 97-100 General appearance: over weight, other (Sedated on the ventilator) - ENT ENT exam: Present: normal exam, normal external ear exam, normal oropharynx, other (Clot in the right nares bilateral packing status post fess no signs of recurrent epistaxis) - Neck Neck exam: Present: normal inspection - Respiratory Respiratory exam: Present: other (Sedated on the ventilator) - GI/Abdominal GI/Abdominal exam: Present: soft (Obese) - Neurological Exam Neurological exam: Present: other (Unable to assess she is currently sedated on the ventilator) - Psychiatric Psychiatric exam: Present: other (Unable to assess she is currently sedated on the ventilator) - Skin Skin exam: Present: normal color, warm Results - Labs CBC & BMP: 12/27/16 04:45 12/27/16 04:46 Lab Results: I have reviewed the past 24 hour labs Quality Measures - Stroke Onset of Symptoms Date: 12/16/16 Onset of Symptoms Time: 05:30 Specialty Discharge - Follow Up or Referrals Follow up with: Edison Tenorio MD [Physician] - 01/21/17 9:30 am
--- NOTE | 2016-12-27 08:42 | Anesthesia Post-Op ---
Anesthesia Post OP - Post Ansesthetic Evaluation Patient seen in post op: Yes Resp: within normal limits (remains intubated) CV: within normal limits Mental: within normal limits Temp: within normal limits [id number]: within normal limits Nausea and Vomiting: within normal limits Pain: within normal limits
[2016-12-27] MEDS: FLUTICASONE 50 MCG NASAL SPRAY 16 GM BOTTLE BOTH NARES SCH ×2 (09:00→09:34)
[2016-12-27] MEDS: PANTOPRAZOLE 40 MG TABLET PO SCH (09:31)
[2016-12-27] MEDS: CALCIUM (CARBONATE)/VITAMIN D 500 MG-200 UNIT TABLET PO SCH (09:31)
[2016-12-27] MEDS: DILTIAZEM 60 MG TABLET PO SCH ×4 (09:31→21:35)
[2016-12-27] MEDS: SULFAMETHOX/TRIMETHOPRIM 800-160 MG TABLET PO SCH ×2 (09:31→21:38)
[2016-12-27] MEDS: CARVEDILOL 6.25 MG TABLET PO SCH (09:32)
[2016-12-27] MEDS: DOCUSATE SODIUM 100 MG CAPSULE PO SCH ×2 (09:32→21:39)
[2016-12-27] MEDS: sulfaSALAzine 500 MG TABLET PO SCH ×2 (09:32→21:36)
[2016-12-27] MEDS: levETIRAcetam 250 MG TABLET PO SCH ×2 (09:32→21:39)
[2016-12-27] MEDS: FUROSEMIDE 20 MG/2 ML VIAL IV SCH ×2 (09:32→16:04)
[2016-12-27] MEDS: MEMANTINE 5 MG TABLET PO SCH ×2 (09:33→21:38)
[2016-12-27] MEDS: LEVOFLOXACIN INJ 750 MG in PREMIX 1 EACH IV SCH (09:33)
[2016-12-27] MEDS: CETIRIZINE 10 MG TABLET PO SCH (09:33)
[2016-12-27] MEDS: POTASSIUM CHLORIDE 20 MEQ TABLET PO SCH ×2 (09:33→21:36)
[2016-12-27] MEDS: MAGNESIUM OXIDE 400 MG TABLET PO SCH (09:33)
[2016-12-27] MEDS: LISINOPRIL 10 MG TABLET PO SCH (09:33)
[2016-12-27 09:35] LABS: INR 1.4; PT Patient Result 15.4 SECS
[2016-12-27] MEDS: SOTALOL 80 MG TABLET PO SCH ×2 (09:37→21:40)
[2016-12-27] MEDS: LINEZOLID INJ 600 MG in PREMIX 1 EACH IV SCH ×2 (10:52→21:16)
--- NOTE | 2016-12-27 11:18 | Cardiology Progress Note ---
Assessment and Plan (1) Pre-operative cardiovascular examination Status: Acute Assessment and plan: Initial assessment and plan 12/24/2016: Dyspnea on exertion Overweight Suspected sleep apnea Paroxysmal atrial fibrillation Antiarrhythmic drug From a cardiac standpoint her cardiac risk of noncardiac surgery is moderate for heart failure or paroxysmal atrial fibrillation. It is probably lower for [place] or cardiac . However she needs to proceed with the surgery. From my standpoint, okay to do so. She is about "best we can do". In the course of the evaluation, it was decided the patient needed to have an echocardiogram for the pts management. It was ordered. I will review it. If it is not done prior to the surgery it does not need to result in cancellation of the surgery. We will replete magnesium. She is on a beta-jonathan. The over anticoagulation is being treated with fresh frozen plasma. Assessment and plan 12/25/2016: Had some postop bleeding patient had to be reintubated then the nasal area is packed. She has elevated blood pressure. Agree with labetalol. Will also start her morning meds which have not given- Cardizem, sotalol, lisinopril, Carvedilol-patient will have her blood pressure. Mildly elevated INR may be partly why she had bleeding postop. I conferred care with the patient's nurse and Dr. Dmitri Devine, who has been consulted for management of her pulmonary status/vent settings. Repleted low potassium with liquid KCl per OG tube. 12/26/16: Plan/recommendation: No significant atrial arrhythmia. Remains off anticoagulation. Some ENT bleeding. Continue ET tube and to protect airway. Continue to get antiarrhythmic/rate control medications through NG tube. Watch rhythm. 12/27/16: Assessment/plan/recommendation: No arrhythmias. ENT bleeding seems to stop. Wean as tolerated. Okay with me to extubate when you are ready. Continue to watch rhythm carefully. Current Visit: Yes (2) Chronic anticoagulation Status: Chronic Current Visit: Yes (3) Chronic atrial fibrillation Status: Chronic Current Visit: Yes (4) Dementia Status: Chronic Current Visit: Yes (5) Nonischemic cardiomyopathy Status: Chronic Current Visit: Yes (6) History of cardiac pacemaker Status: Chronic Current Visit: No (7) long-standing hypertension Status: Chronic Current Visit: No (8) Suspected sleep apnea Status: Acute Current Visit: Yes (9) Overweight Status: Acute Current Visit: Yes (10) Dyspnea on exertion Status: Acute Current Visit: Yes (11) Paroxysmal atrial fibrillation Status: Acute Current Visit: Yes (12) half-way current use of antiarrhythmic drug Status: Acute Current Visit: Yes Cardiology - PN: Subj Interval history: Remains on the vent. Sedated. Exam (Progress Note) - Constitutional Vitals: Period Temp Pulse Resp BP Sys/Tavera Pulse Ox Last 24 Hr 97.3 F-97.9 F 60-86 10-23 90-131/45-70 97-100 Exam: HEENT: Pupils equal, reactive to light and accommodation Neck: NoJVD or bruit Lungs clear to auscultation Heart: Regular rhythm rate with normal S1 and S2. Apical S4 Abdomen: No hepatosplenomegaly Spine/extremities: No clubbing, cyanosis, or edema Neuro: Nonfocal Psych: No depression or anxiety Result/EKG - Labs CBC & BMP: 12/27/16 04:45 12/27/16 04:46 Lab Results: I have reviewed the past 24 hour labs Labs: Laboratory Results - last 24 hr 12/27/16 12/27/16 12/27/16 04:35 04:45 04:46 WBC 8.1 RBC 3.49 L Hgb 9.7 L Hct 30.3 L MCV 86.8 L MCH 28 MCHC 32.0 RDW 14.5 Plt Count 179 MPV 9.7 Neut % (Auto) 62.3 Lymph % (Auto) 23.2 [place] % (Auto) 11.3 Eos % (Auto) 2.8 Baso % (Auto) 0.2 Neut # (Auto) 5.1 Lymph # (Auto) 1.9 [place] # (Auto) 0.9 H Eos # (Auto) 0.2 Baso # (Auto) 0.0 Immature Gran % 0.2 Nucleated RBC % 0.0 Immature Gran # 0.02 Nucleated RBCs # 0.00 INR PT Patient/Control Mix ABG pH 7.516 H ABG pCO2 31.3 L ABG pO2 101.0 H ABG HCO3 26.9 H ABG Total CO2 23.0 ABG O2 Saturation 97.9 ABG Base Excess 2.8 H Sodium 146 H Potassium 3.5 Chloride 110 H Carbon Dioxide 25 Anion Gap 14.5 BUN 7 Creatinine 1.20 H GFR Calculation 56 BUN/Creatinine Ratio 5.00 L Glucose 101 Calculated Osmolality 287.6 Calcium 7.9 L Magnesium 2.0 Total Bilirubin < 0.39 AST 12 ALT 11 L Alkaline Phosphatase 62 Total Protein 5.4 L Albumin 2.6 L Globulin 2.8 Albumin/Globulin Ratio 0.9 L 12/27/16 09:15 WBC RBC Hgb Hct MCV MCH MCHC RDW Plt Count MPV Neut % (Auto) Lymph % (Auto) [place] % (Auto) Eos % (Auto) Baso % (Auto) Neut # (Auto) Lymph # (Auto) [place] # (Auto) Eos # (Auto) Baso # (Auto) Immature Gran % Nucleated RBC % Immature Gran # Nucleated RBCs # INR 1.4 PT Patient/Control Mix 15.4 D ABG pH ABG pCO2 ABG pO2 ABG HCO3 ABG Total CO2 ABG O2 Saturation ABG Base Excess Sodium Potassium Chloride Carbon Dioxide Anion Gap BUN Creatinine GFR Calculation BUN/Creatinine Ratio Glucose Calculated Osmolality Calcium Magnesium Total Bilirubin AST ALT Alkaline Phosphatase Total Protein Albumin Globulin Albumin/Globulin Ratio - Diagnostic Findings Procedure: Chest x-ray: report reviewed by me - EKG EKG results: interpreted by me Quality Measures - Stroke Onset of Symptoms Date: 12/16/16 Onset of Symptoms Time: 05:30 Specialty Discharge - Follow Up or Referrals Follow up with: Edison Tenorio MD [Physician] - 01/21/17 9:30 am
[2016-12-27] MEDS: predniSONE 1 MG TABLET PO SCH (11:28)
--- NOTE | 2016-12-27 15:18 | Family Practice Progress Note ---
Family Practice - PN: Subj Interval history: Patient is stable today with no further bleeding. Dr. Devine is trying to wean her off respirator. She is starting BiPAP trials. Her labs are stable today. No new problems identified.. Her physical exam is otherwise stable. We will continue present treatment plan Exam (Progress Note) - Constitutional Vitals: Period Temp Pulse Resp BP Sys/Tavera Pulse Ox Last 24 Hr 96.9 F-97.9 F 60-80 10-37 97-152/52-86 93-100 Results - Labs CBC & BMP: 12/27/16 04:45 12/27/16 04:46 Quality Measures - Stroke Onset of Symptoms Date: 12/16/16 Onset of Symptoms Time: 05:30 Specialty Discharge - Follow Up or Referrals Follow up with: Edison Tenorio MD [Physician] - 01/21/17 9:30 am
--- NOTE | 2016-12-27 15:34 | XRay Report ---
Exam: XR chest 1V portable Indication: Intubated Comparison study: 12/26/2016 Findings: Right-sided central line, endotracheal tube and esophagogastric tube are grossly similar positions. Right-sided pacemaker device and wire leads appear in stable position. Cardiac silhouette is mildly enlarged, unchanged from prior. Low lung volumes are noted with interval decrease in minimal perihilar and basilar interstitial opacities likely representing atelectasis. Trace pleural effusions are also suspected. There is no pneumothorax. Impression: Stable position of support tubes and lines. Slight improved aeration in the perihilar regions and lung bases. PROCEDURE INTERPRETED AT [facility] DEPARTMENT OF RADIOLOGY Final Report Signed by: Chivo Mullins
[2016-12-27] MEDS: HYDROmorphone 2 MG/1 ML VIAL IV PRN ×2 (16:00→20:20)
[2016-12-27] MEDS: WARFARIN 2 MG TABLET PO SCH (17:07)
[2016-12-27] MEDS: OLANZapine 2.5 MG TABLET PO SCH (21:37)
[2016-12-27] MEDS: MONTELUKAST 10 MG TABLET PO SCH (21:38)
[2016-12-28 04:19] LABS: ABG Base Excess -1.2 MMOL/L (-2.5-2.5); ABG HCO3 21.5 MMOL/L (20-26); ABG Oxygen Saturation 97.9 % (95-100); ABG PCO2 29.1 MM HG (35-48); ABG PH 7.486 (7.35-7.45); ABG PO2 122.7 MM HG (80-95); ABG TCO2 22.4 MMOL/L (23-27)
[2016-12-28 04:22] LABS: Basophils % 0.4 % (0.0-0.8); Eosinophils # 0.5 10*3/uL (0.0-0.87); Eosinophils % 5.9 % (0.00-10.9); Hematocrit 30.6 VOL% (35.7-47.0); Hemoglobin 9.8 GM/DL (12.0-16.0); Immature Granulocytes % 0.4 %; Immature Granulocytes Absolute 0.03 #; Lymphocytes # 2.5 10*3/uL (1.4-4.0); Lymphocytes % 29.4 % (21.3-54.2); Mean Corpuscular Hemoglobin 28 PG (27-34); Mean Corpuscular Volume 87.2 FL (87-102); Mean Platelet Volume 9.8 FL (9.6-12.0); Monocytes # 1.1 10*3/uL (0.11-0.8); Monocytes % 12.4 % (1.7-12.7); Neutrophils # 4.4 10*3/uL (1.4-7.4); Neutrophils % 51.5 % (38.7-73.9); Platelet Count 180 T/CUMM (130-400); Red Blood Count 3.51 MC/CUMM (3.8-5.5); Red Cell Distribution Width 14.6 % (9.3-17.3); White Blood Count 8.5 T/CUMM (4-12)
[2016-12-28 04:37] LABS: INR 1.3; PT Patient Result 14.5 SECS
[2016-12-28 05:01] LABS: Magnesium 1.8 MG/DL (1.8-2.4); Potassium 3.8 MMOL/L (3.5-5.1)
--- NOTE | 2016-12-28 07:02 | Pulmonology Progress Note ---
Pulmonary - PN: Subj Interval history: This 71-year-old black female had fiberoptic endoscopic sinus surgery yesterday. She had some bleeding in the recovery room post extubation and was reintubated. We have ventilated her overnight. ABGs look good this morning. Patient is sedated at the moment. We will wake her up and start on CPAP and see if we can get her extubated. Will need ENT to review any nosebleed prior to extubation to be sure it would be safe to remove the tube. 12/27/2016 patient tolerating CPAP. Near ready for extubation. Await word from ENT on whether her bleeding is controlled. 12/28/2016 no further bleeding from her nose. Packing is out. She tolerated about an hour and a half of CPAP yesterday and then became tachypneic. Will try again this morning. Should be able to get her extubated. Will use some Haldol and stop the propofol Exam (Progress Note) - Constitutional Vitals: Period Temp Pulse Resp BP Sys/Tavera Pulse Ox Last 24 Hr 96.9 F-98.6 F 60-80 10-41 92-152/45-86 93-100 Exam: Patient is sedated on the ventilator. Nasal passages appear clear with no active bleeding. Orotracheal tube in place. Vital signs normal. Pupils react to light. Chest sounds clear. Heart normal rate rhythm no murmurs. Abdomen soft nontender no masses. Bowel sounds present. Extremities no clubbing cyanosis edema. Results - Labs CBC & BMP: 12/28/16 04:10 12/28/16 04:00 Lab Results: I have reviewed the past 24 hour labs - Diagnostic Findings Procedure: Chest x-ray: image reviewed by me (Minimal bibasilar atelectasis. Little change from before. ET tube good position.) Assessment and Plan (1) Pansinusitis Status: Acute Assessment and plan: She is postop fiberoptic sinus surgery. She had some bleeding postoperatively requiring reintubation. She is on broad-spectrum antibiotics. Will need ENT to tell us when they feel it is safe to extubate from a standpoint of bleeding. PT/INR was hyper prolonged initially and is near normal now. 12/26/2016 status post FESS. Watch for nosebleed. 12/27/2016 post surgery. Should be improved. Continuing antibiotics. 12/28/2016 status post FESS. No further bleeding. On empiric antibiotics. Current Visit: Yes (2) Postop sinus surgery Status: Acute Assessment and plan: Patient on the ventilator after being reintubated in the recovery room because of bleeding. 12/26/2016 had some bleeding postop. Need this rechecked before extubation. 12/27/2016 does not appear to be having any further bleeding. However await word from ENT before considering extubation to protect her airway. 12/28/2016 again no further bleeding. Current Visit: Yes (3) Severe hypertension Status: Acute Assessment and plan: Blood pressure 185/85. Patient not getting oral blood pressure medications. We will see if we can control this with a labetalol infusion. 12/26/2016 blood pressure well controlled with labetalol infusion 12/27/2016 blood pressure well controlled 12/28/2016 blood pressure well controlled. Systolic pressure around 100. Current Visit: Yes (4) Nonischemic cardiomyopathy Status: Chronic Assessment and plan: I do not see an echocardiogram at this point. 12/26/2016 defer to cardiology. 12/28/2016 does not appear to be in congestive heart failure Current Visit: Yes (5) Chronic atrial fibrillation Status: Chronic Assessment and plan: Rate is controlled. She is in chronic atrial fib. Unable to anticoagulate due to bleeding from sinus surgery. 12/26/16 rate is controlled 12/27/2016 atrial fibrillation with controlled rate 12/28/2016 rate is controlled. Current Visit: Yes (6) Chronic anticoagulation Status: Chronic Assessment and plan: She was hyper prolonged on admission on Coumadin. Will need anticoagulants what she is over the perioperative period 12/26/2016 INR still slightly prolonged at 1.8. 12/27/2016 recheck INR. We will give her vitamin K 12/28/2016 INR 1.3 now. No active bleeding. Current Visit: Yes Specialty Discharge - Follow Up or Referrals Follow up with: Edison Tenorio MD [Physician] - 01/21/17 9:30 am
--- NOTE | 2016-12-28 07:10 | Family Practice Progress Note ---
Family Practice - PN: Subj Interval history: Patient did well through the night and has not had any further epistaxis. Repeat chest x-ray this morning showed some increased density in the left base. Her arterial blood gases showed PO2 of 122. Her pH is 7.48 and CO2 was a bit low. Patient will begin CPAP trials again today and hopefully can be extubated soon. She is presently sedated on propofol. Exam (Progress Note) - Constitutional Vitals: Period Temp Pulse Resp BP Sys/Tavera Pulse Ox Last 24 Hr 96.9 F-98.6 F 60-80 10-41 92-152/45-86 93-100 Exam: Objectively well-developed black female who is presently on ventilator. Her vital signs are stable. Cardiovascular: Heart rates are regular without murmurs or gallops Respiratory: Lungs clear to auscultation bilaterally. Abdomen: Abdomen soft and there is no response to palpation. Neuro: Patient is presently sedated. Results - Labs CBC & BMP: 12/28/16 04:10 12/28/16 04:00 Lab Results: I have reviewed the past 24 hour labs Assessment and Plan (1) Intractable headache Status: Acute Assessment and plan: 12/16/2016: A CRP and sed rate have been ordered. She does have a history of recent sinusitis and I am going to place her on IV Levaquin. 12/17/2016: I am going to consult Dr. López, Dr. Tenorio is also been consulted. 12/21/2016: Patient's headache has resolved. 12/22/2016: Patient is having recurring headache this morning. 12/23/2016: Patient's headache has certainly improved. CT scan shows persistent sinusitis changes. I am going to add Bactrim. 12/24/2016: Patient headache is returned with a vengeance. Her INR is also up to 5.4. I am going to hold her Coumadin for 2 days repeat her INR Wednesday. We will asked Dr. del real to see her again. 12/28/2016: Patient is postop endoscopic sinus surgery and appears to be doing well. We are working in getting her off the ventilator. Current Visit: Yes (2) Abnormal CT of brain Status: Acute Assessment and plan: 12/16/2016: We will consult Dr. Tenorio. The changes described Dr. Lopez were not readily apparent to me and she has no lateralizing signs or symptoms that I can elicit. Current Visit: Yes Quality Measures - Stroke Onset of Symptoms Date: 12/16/16 Onset of Symptoms Time: 05:30 Specialty Discharge - Follow Up or Referrals Follow up with: Edison Tenorio MD [Physician] - 01/21/17 9:30 am
[2016-12-28] MEDS: PROPOFOL 1,000 MG/100 ML BOTTLE IV SCH ×2 (07:20→17:04)
--- NOTE | 2016-12-28 08:10 | XRay Report ---
History: Shortness of breath. Intubated Date: 12/28/2016 Study: Chest AP portable Comparison exam: 12/27/2016 The endotracheal tube, nasogastric tube, and right IJ central line remain in place. There is continued cardiomegaly. The mediastinal contours are unchanged. The pulmonary vasculature is upper normal. There is continued mild atelectatic changes in the lung bases, left greater than right. There is continued mild left greater than right bilateral pleural effusion. There is no pneumothorax. There is no obvious new or worsening process. The right subclavian multilead transvenous pacemaker device is unchanged. Osseous structures are similar. Impression: Continued left greater than right bibasilar edema/atelectasis, with slightly improved aeration. No interval worsening PROCEDURE INTERPRETED AT [facility] DEPARTMENT OF RADIOLOGY Final Report Signed by: Dr. Anabella Sanchez
[2016-12-28] MEDS: POTASSIUM CHLORIDE 20 MEQ/15 ML UDCUP PER TUBE SCH ×2 (08:54→22:20)
[2016-12-28] MEDS: FUROSEMIDE 20 MG/2 ML VIAL IV SCH ×2 (08:55→17:10)
[2016-12-28] MEDS: DILTIAZEM 60 MG TABLET PO SCH ×2 (08:58→12:32)
[2016-12-28] MEDS: sulfaSALAzine 500 MG TABLET PO SCH ×2 (08:58→22:32)
[2016-12-28] MEDS: SULFAMETHOX/TRIMETHOPRIM 800-160 MG TABLET PO SCH ×2 (08:59→22:07)
[2016-12-28] MEDS: HALOPERIDOL 5 MG/ML AMP IV SCH ×2 (09:01→22:50)
[2016-12-28] MEDS: CETIRIZINE 10 MG TABLET PO SCH (09:01)
[2016-12-28] MEDS: CARVEDILOL 6.25 MG TABLET PO SCH (09:01)
[2016-12-28] MEDS: LISINOPRIL 10 MG TABLET PO SCH (09:01)
[2016-12-28] MEDS: LINEZOLID INJ 600 MG in PREMIX 1 EACH IV SCH ×2 (09:12→20:16)
[2016-12-28] MEDS: FLUTICASONE 50 MCG NASAL SPRAY 16 GM BOTTLE BOTH NARES SCH (09:20)
[2016-12-28] MEDS: PANTOPRAZOLE 40 MG TABLET PO SCH (09:20)
--- NOTE | 2016-12-28 09:30 | Cardiology Progress Note ---
<Lucina Ruiz - Last Filed: 12/28/16 09:17> Assessment and Plan (1) Paroxysmal atrial fibrillation Status: Chronic Assessment and plan: This is clinically stable at this time. Continue current plan of care. Anticoagulation continues to be on hold due to postoperative ENT bleeding. We will continue to hold this medication until it is okay to resume per Dr. López's standpoint. Current Visit: Yes (2) Postop sinus surgery Status: Chronic Assessment and plan: Dr. López is following. Current Visit: Yes (3) Suspected sleep apnea Status: Acute Assessment and plan: Dr. Kelly has evaluated the patient. He plans to follow-up next week or in the sleep clinic. Current Visit: Yes (4) Dementia Status: Chronic Current Visit: Yes (5) Nonischemic cardiomyopathy Status: Chronic Assessment and plan: This is clinically stable at this time. Continue current plan of care. Current Visit: Yes (6) History of cardiac pacemaker Status: Chronic Current Visit: No (7) long-standing hypertension Status: Chronic Assessment and plan: Blood pressure has been well controlled this hospitalization. Continue current plan of care. Current Visit: No Cardiology - PN: Subj Interval history: User Experience Researcher: Dr. Owen Ms. Zamora is a 71 year old -[place] female with a history of hypertension, chronic atrial fibrillation, chronic anticoagulation, and nonischemic cardiomyopathy, recent TIA. She is status post [employer] dual- chamber pacemaker November 06, 2003 for symptomatic bradycardia. She is status post generator change and lead testing November 26, [address] Swartz. She is status post CVA December 2010. She was admitted to the hospital on 12/16/2016 with severe headache and abnormal CT of the brain. She she has been seen by ENT and is being treated for sinusitis, trigeminal neuralgia pain, and intractable headache. She is planned for an elective sinus surgery in the future but due to her continued problems, this is planned for 12/25/16. Her INR was elevated upon admission, she received FFP. She underwent functional endoscopic sinus surgery performed by Dr. del real on 12/25/16. She has done well post surgery the exception of moderate postoperative epistaxis. Cardiology was consulted for preop evaluation. Patient was seen and examined in the ICU. She continues to be sedated and ventilated. She is postop day #3 today. She continues to do well. No further epistaxis noted. She has remained in normal sinus rhythm without any arrhythmias. Anticoagulation continues to be on hold due to postoperative ENT bleeding. We will continue to hold this medication until it is okay to resume per Dr. López's standpoint. Potassium 3.8 noted this morning. Potassium replacement has already been ordered by Dr. Daniel Mcgrath this morning. Vital signs are stable. Further plan and addendum to follow per Dr. Pike. Exam (Progress Note) - Constitutional Vitals: Period Temp Pulse Resp BP Sys/Tavera Pulse Ox Last 24 Hr 96.9 F-98.6 F 60-80 10-41 92-144/45-78 93-100 General appearance: other (Patient is sedated and ventilated in the ICU.) - Head Head exam: Present: normocephalic, atraumatic - Respiratory Respiratory exam: Present: clear to auscultation bilaterally. Absent: accessory muscle use, chest wall tenderness, rales, rhonchi, stridor, wheezes - Cardiovascular Cardiovascular exam: Present: gallop, regular rate and rhythm, rubs. Absent: carotid bruit, JVD - GI/Abdominal GI/Abdominal exam: Present: hypoactive bowel sounds, soft, other (OGT noted.). Absent: distended, firm, mass - Extremities Exam Extremities exam: Present: normal inspection, normal capillary refill. Absent: edema - Neurological Exam Neurological exam: Present: other (Patient is sedated and ventilated in the ICU. ) - Skin Skin exam: Present: normal color, warm, dry Result/EKG - Labs CBC & BMP: 12/28/16 04:10 12/28/16 04:00 Lab Results: I have reviewed the past 24 hour labs Labs: Laboratory Results - last 24 hr 12/27/16 12/27/16 12/28/16 08:20 09:15 04:00 WBC RBC Hgb Hct MCV MCH MCHC RDW Plt Count MPV Neut % (Auto) Lymph % (Auto) Faulk % (Auto) Eos % (Auto) Baso % (Auto) Neut # (Auto) Lymph # (Auto) Faulk # (Auto) Eos # (Auto) Baso # (Auto) Immature Gran % Nucleated RBC % Immature Gran # Nucleated RBCs # INR 1.4 PT Patient/Control Mix 15.4 D ABG pH ABG pCO2 ABG pO2 ABG HCO3 ABG Total CO2 ABG O2 Saturation ABG Base Excess Sodium 143 Potassium 3.8 Chloride 111 H Carbon Dioxide 22 Anion Gap 13.8 BUN 9 Creatinine 1.30 H GFR Calculation 51 BUN/Creatinine Ratio 6.00 Glucose 79 POC Glucose 92 Calculated Osmolality 282.0 Calcium 8.0 L Magnesium 1.8 12/28/16 12/28/16 12/28/16 04:00 04:10 04:10 WBC 8.5 RBC 3.51 L Hgb 9.8 L Hct 30.6 L MCV 87.2 MCH 28 MCHC 32.0 RDW 14.6 Plt Count 180 MPV 9.8 Neut % (Auto) 51.5 Lymph % (Auto) 29.4 Faulk % (Auto) 12.4 Eos % (Auto) 5.9 Baso % (Auto) 0.4 Neut # (Auto) 4.4 Lymph # (Auto) 2.5 Faulk # (Auto) 1.1 H Eos # (Auto) 0.5 Baso # (Auto) 0.0 Immature Gran % 0.4 Nucleated RBC % 0.0 Immature Gran # 0.03 Nucleated RBCs # 0.00 INR 1.3 PT Patient/Control Mix 14.5 ABG pH 7.486 H ABG pCO2 29.1 L ABG pO2 122.7 H ABG HCO3 21.5 ABG Total CO2 22.4 L ABG O2 Saturation 97.9 ABG Base Excess -1.2 Sodium Potassium Chloride Carbon Dioxide Anion Gap BUN Creatinine GFR Calculation BUN/Creatinine Ratio Glucose POC Glucose Calculated Osmolality Calcium Magnesium Quality Measures - Stroke Onset of Symptoms Date: 12/16/16 Onset of Symptoms Time: 05:30 Specialty Discharge - Follow Up or Referrals Follow up with: Edison Tenorio MD [Physician] - 01/21/17 9:30 am <Jamir Pike - Last Filed: 12/28/16 10:50> Cardiology - PN: Subj Interval history: I have seen, interviewed, examined the patient and reviewed his chart and discussed the case with the mid-level provider and agree with the plan as outlined in the note. From a cardiac standpoint, the patient is stable. I don't have anything to add at this time. I think we can restart her chronic anticoagulation when it is okay from a postoperative perspective. I'm going to drop off her case at this time. If I can be of further assistance please give us a call. Exam (Progress Note) - Constitutional Vitals: Period Temp Pulse Resp BP Sys/Tavera Pulse Ox Last 24 Hr 96.9 F-98.6 F 60-80 10-41 70-127/45-69 97-100 Result/EKG - Labs CBC & BMP: 12/28/16 04:10 12/28/16 04:00 Labs: Laboratory Results - last 24 hr 12/27/16 12/28/16 12/28/16 08:20 04:00 04:00 WBC RBC Hgb Hct MCV MCH MCHC RDW Plt Count MPV Neut % (Auto) Lymph % (Auto) Faulk % (Auto) Eos % (Auto) Baso % (Auto) Neut # (Auto) Lymph # (Auto) Faulk # (Auto) Eos # (Auto) Baso # (Auto) Immature Gran % Nucleated RBC % Immature Gran # Nucleated RBCs # INR PT Patient/Control Mix ABG pH 7.486 H ABG pCO2 29.1 L ABG pO2 122.7 H ABG HCO3 21.5 ABG Total CO2 22.4 L ABG O2 Saturation 97.9 ABG Base Excess -1.2 Sodium 143 Potassium 3.8 Chloride 111 H Carbon Dioxide 22 Anion Gap 13.8 BUN 9 Creatinine 1.30 H GFR Calculation 51 BUN/Creatinine Ratio 6.00 Glucose 79 POC Glucose 92 Calculated Osmolality 282.0 Calcium 8.0 L Magnesium 1.8 12/28/16 12/28/16 04:10 04:10 WBC 8.5 RBC 3.51 L Hgb 9.8 L Hct 30.6 L MCV 87.2 MCH 28 MCHC 32.0 RDW 14.6 Plt Count 180 MPV 9.8 Neut % (Auto) 51.5 Lymph % (Auto) 29.4 Faulk % (Auto) 12.4 Eos % (Auto) 5.9 Baso % (Auto) 0.4 Neut # (Auto) 4.4 Lymph # (Auto) 2.5 Faulk # (Auto) 1.1 H Eos # (Auto) 0.5 Baso # (Auto) 0.0 Immature Gran % 0.4 Nucleated RBC % 0.0 Immature Gran # 0.03 Nucleated RBCs # 0.00 INR 1.3 PT Patient/Control Mix 14.5 ABG pH ABG pCO2 ABG pO2 ABG HCO3 ABG Total CO2 ABG O2 Saturation ABG Base Excess Sodium Potassium Chloride Carbon Dioxide Anion Gap BUN Creatinine GFR Calculation BUN/Creatinine Ratio Glucose POC Glucose Calculated Osmolality Calcium Magnesium
[2016-12-28] MEDS: MAGNESIUM OXIDE 400 MG TABLET PO SCH (09:33)
[2016-12-28] MEDS: levETIRAcetam 250 MG TABLET PO SCH ×2 (09:33→22:09)
[2016-12-28] MEDS: DOCUSATE SODIUM 100 MG CAPSULE PO SCH ×2 (09:33→22:07)
[2016-12-28] MEDS: CALCIUM (CARBONATE)/VITAMIN D 500 MG-200 UNIT TABLET PO SCH (09:33)
[2016-12-28] MEDS: MEMANTINE 5 MG TABLET PO SCH ×2 (09:33→22:08)
[2016-12-28] MEDS: LEVOFLOXACIN INJ 750 MG in PREMIX 1 EACH IV SCH (09:34)
[2016-12-28] MEDS: PANTOPRAZOLE 40 MG VIAL IV SCH (09:35)
[2016-12-28] MEDS ORDERED: SODIUM CHLORIDE 0.9% 250 ML IV ONE (09:58)
--- NOTE | 2016-12-28 12:25 | Pathology Report from [facility] ---
ACCESSION # : [id number] PATIENT NAME : Paz Zamora ORDERING DR : Cedric López DO CLINICAL HX: Chronic sinusitis, turbinate hypertrophy POST-OP DX: Same SPECIMEN INFO: #1 LT maxillary tissue #2 LT frontal tissue #3 LT sphenoid tissue #4 LT ethmoid tissue #5 LT middle turbinate tissue #6 RT maxillary tissue #7 RT frontal tissue #8 RT sphenoid tissue #9 RT ethmoid tissue #10 RT middle turbinate #11 Pansinusitis contents GROSS DESCRIPTION: Received in formalin in 11 parts labeled:#1 "PAZ ZAMORA & # 1 LT MAXILLARY" are two fragments of hemorrhagic pink carrillo bone and tissue measuring 2.0 x 1.0 cm in aggregate, submitted in cassette #1 following decalcification.#2 "PAZ ZAMORA & #2 LT FRONTAL" is a 0.7 x 0.6 cm pink carrillo tissue fragment bisected and submitted in cassette #2.#3 "PAZ ZAMORA & #3 LT SPHENOID" is a 1.3 x 1.0 cm aggregate of hyperemic pink carrillo tissue submitted in cassette #3.#4 "PAZ ZAMORA & #4 LT ETHMOID" is a 2.0 x 0.7 cm aggregate of pink carrillo tissue submitted in cassette #4.#5 "PAZ ZAMORA & #5 LT MIDDLE TURBINATE" is a 2.0 x 1.5 cm aggregate of pink carrillo tissue submitted in cassette #5.#6 "PAZ ZAMORA & #6 RT MAXILLARY" is a 1.5 x 0.5 cm fragment of pink carrillo tissue submitted in cassette #6.#7 "PAZ ZAMORA & #7 RT FRONTAL TISSUE" is a 1.5 x 0.7 cm fragment of bone and tissue submitted in #7 following decalcification.#8 "PAZ ZAMORA & #8 RT SPHENOID" is a 2.0 x 0.7 cm aggregate of bone and soft tissue submitted in #8 following decalcification.#9 "PAZ ZAMORA & #9 RT ETHMOID" is a 1.5 x 0.9 cm aggregate of pink carrillo tissue submitted in cassette #9.#10 "PAZ ZAMORA & #10 RT MIDDLE TURBINATE" is a 2.5 x 0.8 cm pink carrillo tissue fragment sectioned and submitted in cassette #10.#11 "PAZ ZAMORA & #11" is a specimen trap containing foamy hemorrhagic and possible tissue fragments measuring 11 x 10.8 cm. Shoe Sprayer sections are submitted in cassette #11 following decalcification. DIAGNOSIS FOR PAZ ZAMORA: #1 LEFT MAXILLARY TISSUE: Fragmented polypoid respiratory-type mucosa with chronic inflammation;bone,blood.#2 LEFT FRONTAL TISSUE: Respiratory-type mucosa with marked acute and chronic inflammation.#3 LEFT SPHENOID TISSUE: Respiratory-type mucosa with chronic inflammation and blood.#4 LEFT ETHMOID TISSUE: Respiratory-type mucosa with acute and chronic inflammation, bone.#5 LEFT MIDDLE TURBINATE TISSUE: Acute and chronic inflammation, congestion, bone.#6 RIGHT MAXILLARY TISSUE: Acute and chronic inflammation, congestion.#7 RIGHT FRONTAL TISSUE: Acute and chronic inflammation, blood.#8 RIGHT SPHENOID TISSUE: Acute and chronic inflammation, congestion, blood, bone.#9 RIGHT ETHMOID TISSUE: Marked acute and chronic inflammation, edema and congestion.#10 RIGHT MIDDLE TURBINATE: Marked acute and chronic inflammation, congestion, bone.#11 PANSINUSITIS CONTENTS: Blood, fibrin, mucous, bone. SERVICE DATE: 12/26/2016 REPORT DATE: 12/28/2016 PATHOLOGIST: Pipo Hicks M.D. [facility]
[2016-12-28] MEDS: predniSONE 1 MG TABLET PO SCH (12:32)
[2016-12-28] MEDS: SOTALOL 80 MG TABLET PO SCH ×2 (12:32→22:47)
--- NOTE | 2016-12-28 12:43 | Sleep Medicine Progress Note ---
Assessment and Plan (1) Unspecified sleep apnea Status: Acute Assessment and plan: Unable to assess sleep status at this time until off mechanical ventilation and stable medically. Will check back or call as needed. Current Visit: Yes (2) long-standing hypertension Status: Chronic Current Visit: No (3) recurrent atrial fibrillation Status: Acute Current Visit: No Sleep Medicine Subjective Interval history: Patient remains on mechanical ventilation. I was just stopping by to check on her status. No further intervention from a sleep standpoint at this time. Dr. Devine's note reviewed. Exam (Progress Note) - Constitutional Vitals: Period Temp Pulse Resp BP Sys/Tavera Pulse Ox Last 24 Hr 97.1 F-99.0 F 60-71 10-41 70-127/45-64 97-100 Results - Labs CBC & BMP: 12/28/16 04:10 12/28/16 04:00 Lab Results: I have reviewed the past 24 hour labs Specialty Discharge - Follow Up or Referrals Follow up with: Edison Tenorio MD [Physician] - 01/21/17 9:30 am
[2016-12-28] MEDS ORDERED: EPINEPHrine 1 MG/10 ML SYRINGE ONE (15:13)
[2016-12-28] MEDS ORDERED: HEPARIN/NACL 0.9% 2 UNITS/ML 500 ML IV ONE ×2 (15:20→16:20)
[2016-12-28 15:38] LABS: ABG Base Excess -9.5 MMOL/L (-2.5-2.5); ABG HCO3 12.6 MMOL/L (20-26); ABG Oxygen Saturation 98.2 % (95-100); ABG PH 7.427 (7.35-7.45); ABG TCO2 13.2 MMOL/L (23-27); Glucose Heart Surgery 132 MG/DL (74-106); Hemoglobin Heart Surgery 12.4 G/DL (12.0-16.0)
[2016-12-28 15:39] LABS: ABG PCO2 19.6 MM HG (35-48)
--- NOTE | 2016-12-28 15:44 | Progress Note ---
Assessment and Plan - Time spent with patient Time spent with patient: Less than 30 minutes (1) Sinusitis Status: Inactive Assessment and plan: I recommend continuing current treatment as she notes some improvement. I would like to see her next week after discharge after she is over this acute exacerbation as we will likely need to look into at least a minimal sinus surgery such as a balloon sinus plasty with ethmoidectomy to help her underlying symptoms. She will need medical clearance for this which I will asked Dr. Mcgrath if he feels she is able to have surgery. I do not think that she needs surgery during this acute exacerbation but we will try to get it on the schedule within the next few weeks so that we do not have continued recurrences. Thank you very much for this consult and please notify me if there is any additional questions I will try to continue to follow this patient during her stay. 12/24/2016 We will try to get in touch with Dr. Mcgrath and cardiology I think that since she is not improving we should consider performing a functional endoscopic sinus surgery and opening up her sinuses so that she can start to improve ideally I had like to do this on a more elective basis when she is not acutely ill but at this point her acute illness and she may not be getting better any time in the near future and risk versus reward may be in the favor of performing the surgery sooner. I will try to contact Dr. Mcgrath and Dr. Hidalgo cardiology and get them to clear her if possible and rather not anything could be done to improve her INR 12/26/2016 postop day #1 status post functional endoscopic sinus surgery healing well with some continued epistaxis I discussed this with Dr. Devine and we felt it best to give her 1 more day prior to starting extubation because of the amount of continued epistaxis most likely from the continued coagulopathy and her chronic disease I am hopeful that tomorrow will be much better. 12/27/[address] Devine and she is no longer bleeding that we could start to wean and potentially extubate the patient she appears to be doing much better. He is in agreement with the above and will start this process today in hopes that she can be extubated today. 12/28/2016 we are still working on extubation hopefully this will be able to be done today will follow her up tomorrow currently the epistaxis is controlled Current Visit: No Qualifiers: Sinusitis location: pansinusitis Chronicity: chronic Qualified Code(s): J32.4 - Chronic pansinusitis (2) Trigeminal neuralgia pain Status: Acute Current Visit: Yes (3) Intractable headache Status: Acute Current Visit: Yes Family Medicine PN Sub Interval history: Still on ventilator as of this morning pulmonology will attempt again today to wean the patient currently epistaxis is controlled Exam (Progress Note) - Constitutional Vitals: Period Temp Pulse Resp BP Sys/Tavera Pulse Ox Last 24 Hr 97.1 F-99.0 F 60-71 10-41 70-127/45-64 99-100 General appearance: other (Intubated on the ventilator) - ENT ENT exam: Present: normal exam, normal external ear exam, normal oropharynx, other (Obscured exam secondary to endotracheal intubation no epistaxis at this point) Results - Labs CBC & BMP: 12/28/16 04:10 12/28/16 04:00 Quality Measures - Stroke Onset of Symptoms Date: 12/16/16 Onset of Symptoms Time: 05:30 Specialty Discharge - Follow Up or Referrals Follow up with: Edison Tenorio MD [Physician] - 01/21/17 9:30 am
--- NOTE | 2016-12-28 15:45 | EKG Report ---
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 Electronically Signed On 12-29-16 12:23:53 CDT by LIZZY BOWLING [email or web address]
--- NOTE | 2016-12-28 15:45 | EKG Report ---
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 Electronically Signed On 12-29-16 12:21:56 CDT by LIZZY BOWLING [email or web address]
[2016-12-28 15:51] LABS: INR 1.3; PT Patient Result 14.4 SECS; Partial Thromboplastin Time 24.5 SECS (0-40)
--- NOTE | 2016-12-28 15:51 | Event Note ---
I was called to see the patient after she coded. She had V. tach/V. fib and had to be defibrillated. I discussed her case with Dr. Mcgrath. Subsequently EKG showed significant ST elevation, and a quick bedside echo shows anterior wall hypokinesis. I'm strongly suspicious the patient is suffering an acute anterior myocardial infarction which precipitated the arrhythmia. I think the best option for management as cardiac catheterization for definitive coronary artery assessment possible revascularization. I discussed this with the patient 's family who understand the risks and alternatives and wish to proceed. I also discussed the case with Dr. Oseguera will be performing the procedure. We will be transferring the patient emergently to cardiac catheterization.
[2016-12-28] MEDS ORDERED: HEPARIN/NACL 0.9% 2 UNITS/ML 1,000 ML IV ONE (15:54)
[2016-12-28] MEDS ORDERED: LIDOCAINE 1% 20 ML VIAL ONE (15:54)
--- NOTE | 2016-12-28 15:58 | XRay Report ---
Referring Physician: Jett Mcgarth Exam: XR chest 1V portable Date: December 28, 2016 at 3:21 PM Reason: Status post CODE BLUE Comparison: Chest one view portable December 28, 2016 at 3:04 AM Findings: A right IJ catheter, endotracheal tube, feeding tube and cardiac pacing device are in place. The cardiac silhouette is again enlarged. There is minimal bibasilar atelectasis and probable mild pulmonary edema. No pneumothorax is identified, but minimal left pleural fluid may be present. The osseous structures appear stable. Impression: There is improved aeration of both lungs. However, there is persistent minimal bibasilar atelectasis and mild pulmonary edema. PROCEDURE INTERPRETED AT [facility] DEPARTMENT OF RADIOLOGY Final Report Signed by: Dr. Samir Murray
[2016-12-28] MEDS ORDERED: DOPamine 800 MG/250 ML PREMIX IV ONE (16:01)
[2016-12-28 16:03] LABS: Blood Urea Nitrogen 9 MG/DL (7-18); Calcium 8.6 MG/DL (8.5-10.1); Glucose 109 MG/DL (74-106); Osmolality,Calculated 285.8 MOS/KG (273-304); Potassium 4.6 MMOL/L (3.5-5.1); Sodium 144 MMOL/L (136-145); Troponin I Only 0.029 NG/ML (0.00-0.045)
--- NOTE | 2016-12-28 16:16 | History and Physical Update ---
Sedation H&P Update - Dictation Physical: refer to H&P completed by admitting physician (The patient had VT cardiac arrest) - Physical Exam Heart: regular rate and rhythm Lung: clear to auscultation (on vent) Abdomen: within normal limits Vitals: other (she is in shock) - Sedation Patient Consent: Procedure disscussed with patient and patinet has consented., Risks and benefits were discussed with patient,including infection,, bleeding, injury to surrounding structures, seizure, temporary nerve, Patient understands and accepts potential risks/benefits and agrees to, proceed. ASA Class: V Airway Assessment: Class IV: Only hard palate visible (she is intubated)
--- NOTE | 2016-12-28 16:22 | Cardiac Catheterization ---
Date of Procedure:: 12/28/16 Pre-op Diagnosis: Ventricular tachycardia cardiac arrest with dramatic decline in ejection fraction Post-op diagnosis: other (Nonischemic cardiomyopathy, acute) Procedure: Procedures: 1. Left heart catheterization resting hemodynamics 2. Selective left and right coronary angiography 3. Right femoral iliac angiography 4. Angio-Seal closure right femoral arterial After consent was taken from the patient. Taken to the catheterization lab for left heart catheterization via the femoral artery. Time out was taken and recorded. 1% lidocaine was infiltrated in the skin and subcutaneous tissue overlying the right femoral artery. Modified Seldinger technique and an 18- gauge Cook needle was used for access to the right femoral artery. An 0.35 J- wire was advanced through the needle into the central aorta under fluoroscopy. A small skin was made and a 6 Slovak sheath was placed over the wire. The sheath was aspirated and flushed. A JL46 was advanced over the wires in the left main coronary artery was selectively engaged. Multiple orthogonal views of the left system were obtained. The catheter was then exchanged over the wire. The sheath was aspirated and flushed. A JR4 catheter was advanced over the wire into the central aorta. The right coronary was selectively engaged and orthogonal views of the right coronary artery were obtained. The catheter was then exchanged over the wire, the sheath was aspirated and flushed. At this time an angled pigtail catheter was advanced across the aortic valve into the ventricle. Pressure measurements were obtained. Pullback measurements were performed. The dehydration plant operator reviewed the films. The sheath was aspirated and flushed and a right femoral and iliac angiography was performed. The access site was amenable for closure and the area was reprepped with ChloraPrep and draped with sterile towels. The Angio-Seal closure device was used in standard technique. There was no hematoma and distal pulses were good. Total fluoroscopy time 1.12 minutes total fluoroscopy dose 189 mGy with total contrast exposure of 65 cc of omnipaque FINDINGS: LV:61/15 LVEDP: 19 Ao:57/38 EF:10% with severe mid to distal anterior and apical and distal inferior profound hypokinesis the basal and mid inferior smith are relatively preserved compared to remainder the ventricle LM: This vessels angiographically normal LAD: There is a large vessel that reaches the apex in the very distal inferior segment of the ventricular myocardium after the takeoff the second diagonal there is a long smooth tapered segment. There is ALEJANDRA II flow in the mid to distal vessel LCx: Is a nondominant vessel is free of any significant stenosis RCA: Is a large dominant vessel and it too has markedly diminished flow in the mid to distal segment there is no high-grade epicardial stenosis RFA/JAYESH: These vessels are angiographically normal show slow flow of diminished cardiac output Assessment: 1. No high-grade epicardial stenosis 2. Long smooth tapering mid to distal anterior LAD abnormality that is smooth 3. Acute cardiomyopathy, nonischemic, decompensated with end diastolic pressure of 19 4. Cardiogenic shock PLAN: 1. Support and medical management 2. Consider hypothermia protocol Implants: Angio-Seal closure right femoral arteriotomy Surgeon / Physician: Marjan Oseguera Supervisor Of Instruction: none Estimated blood loss: none Specimens: none sent Condition: critical Disposition: ICU/CCU - Medications / Follow-up Referrals: Edison Tenorio MD [Physician] - 01/21/17 9:30 am
--- NOTE | 2016-12-28 16:25 | Event Note ---
The patient underwent cardiac catheterization. She did not have any focal obstructive coronary artery disease to explain her code/arrhythmia. Her left ventricular function is severely reduced compared to her echo just a few days ago. At this point, the etiology of her acute decompensation is unclear. She could have had a transient thrombus or transient spasm. I discussed her case with Dr. López. I think we need to start her on antiplatelet therapy in case this was a transient thrombotic event, and plavix is probably a better choice given her recent surgery. We will continue supportive cardiac care and I am starting her on dobutamine.
[2016-12-28] MEDS ORDERED: CLOPIDOGREL 300 MG TABLET PO ONE (17:58)
[2016-12-28] MEDS ORDERED: DOBUTamine 500 MG/250 ML PREMIX IV SCH (18:30)
[2016-12-28] MEDS ORDERED: NITROGLYCERIN 2% OINT 1 INCH/GM PACK TOP SCH (21:00)
[2016-12-28] MEDS: DOPamine 800 MG/250 ML PREMIX IV SCH (21:46)
[2016-12-28] MEDS: MONTELUKAST 10 MG TABLET PO SCH (22:07)
[2016-12-28] MEDS: OLANZapine 2.5 MG TABLET PO SCH (22:43)
[2016-12-29 00:57] LABS: Magnesium 1.8 MG/DL (1.8-2.4); Potassium 4.6 MMOL/L (3.5-5.1)
[2016-12-29] MEDS ORDERED: MAGNESIUM SULF RIDER 2 GM in PREMIX 1 EACH IV ONE (01:59)
[2016-12-29] MEDS ORDERED: AMIODARONE 450 MG/9 ML VIAL IV ONE (03:31)
[2016-12-29] MEDS: NOREPINEPHRINE 8 MG in SODIUM CHLORIDE 0.9% 242 ML IV SCH ×2 (03:45→17:35)
--- NOTE | 2016-12-29 03:55 | Event Note ---
Responded to SHAHIDA MCBRIDE: SHHAIDA MCBRIDE had been called in room 115 patient Lety Zamora patient had gone into ventricular tachycardia with hypotension. Reported this patient has had these problems of V. tach on and off all day long. This time was quite symptomatic. Patient was shocked 3 times kept on coming back into quite long periods of ventricular tachycardia. Reviewed chemistries with the primary care nurse potassium was unremarkable patient was in the process of receiving magnesium for magnesium level of 1.8. Calcium was yesterday was 8.6. Current labs are just being drawn. This lady also has a history of having had good cardiac catheterization area yesterday the fundal coronaries were clean. Reason for ventricular tachycardias is therefore not known. She has a history of left-sided mastectomy. Extent of malignant disease or remnant of is unknown to me at this point. Vision was made to results to the followin. Patient was bolused with amiodarone and started on amiodarone drip 2. Because of persistent labile blood pressures dropping into 80s over 50s patient was put on a Levophed besides the dopamine that she is on. Fluid status is apparently normal. This patient is in normal sinus rhythm heart rate of 60 and blood pressure 122/72. 3. Chest x-ray has been done that shows no acute infiltrates slight elevation of right hemidiaphragm however this is an AP view chest x-ray at the bedside 4. Blood samples have been drawn for CMP, troponins, lactic acid, CBC and magnesium. Should also check a d-dimer. 5. EKG right now shows atrial pacing with presence of P waves succeeding the pacing spikes. Patient will continue to be monitored on the floor have advised nursing to contact the primary care service which is family medicine and also contacted the welt pocket machine operator involved. Thank you.
[2016-12-29] MEDS ORDERED: AMIODARONE INJ 450 MG in DEXTROSE 5% 241 ML IV SCH ×2 (04:00→11:30)
[2016-12-29 04:03] LABS: ABG Base Excess -9.2 MMOL/L (-2.5-2.5); ABG HCO3 14.3 MMOL/L (20-26); ABG Oxygen Saturation 97.2 % (95-100); ABG PCO2 24.7 MM HG (35-48); ABG PO2 106.2 MM HG (80-95)
[2016-12-29 04:24] LABS: Basophils % 0.2 % (0.0-0.8); Eosinophils # 0.4 10*3/uL (0.0-0.87); Eosinophils % 2.6 % (0.00-10.9); Hematocrit 35.8 VOL% (35.7-47.0); Hemoglobin 10.8 GM/DL (12.0-16.0); Immature Granulocytes % 0.4 %; Immature Granulocytes Absolute 0.06 #; Lymphocytes # 3.5 10*3/uL (1.4-4.0); Lymphocytes % 25.6 % (21.3-54.2); Mean Corpuscular HGB Conc 30.2 GM/DL (32-36); Mean Corpuscular Hemoglobin 27 PG (27-34); Mean Corpuscular Volume 89.9 FL (87-102); Mean Platelet Volume 10.2 FL (9.6-12.0); Monocytes # 1.7 10*3/uL (0.11-0.8); Monocytes % 12.5 % (1.7-12.7); Neutrophils % 58.7 % (38.7-73.9); Platelet Count 194 T/CUMM (130-400); Red Blood Count 3.98 MC/CUMM (3.8-5.5); Red Cell Distribution Width 14.9 % (9.3-17.3); White Blood Count 13.6 T/CUMM (4-12)
[2016-12-29 04:35] LABS: Albumin 2.6 G/DL (3.4-5.0); Bilirubin,Total 0.4 MG/DL (0.2-1.0); Calcium 8.6 MG/DL (8.5-10.1); Osmolality,Calculated 273.8 MOS/KG (273-304); Potassium 4.9 MMOL/L (3.5-5.1); Total Protein 5.8 G/DL (6.4-8.3)
--- NOTE | 2016-12-29 06:45 | EKG Report ---
Stationary ECG Study [facility] Test Date: 12/29/2016 3:41:19 AM Pat Name: KATHY SALMON Department: Room: 115 Gender: F Body Maker: : 1945 Requested by: Kevin Bowie Order Number: [id number] Reading MD: ESA DEMPSEY Intervals [place] Rate: 61 P: 14 [place]: 331 QRS: 110 QRSD: 72 T: 92 QT: 401 QTc: 403 Interpretive Statements ELECTRONIC ATRIAL PACEMAKER LOW QRS VOLTAGE IN PRECORDIAL LEADS ANTEROSEPTAL MYOCARDIAL INFARCTION, PROBABLY OLD Electronically Signed On 12-29-16 16:13:37 CDT by SEA DEMPSEY [email or web address]
--- NOTE | 2016-12-29 07:17 | Pulmonology Progress Note ---
Pulmonary - PN: Subj Interval history: This 71-year-old black female had fiberoptic endoscopic sinus surgery yesterday. She had some bleeding in the recovery room post extubation and was reintubated. We have ventilated her overnight. ABGs look good this morning. Patient is sedated at the moment. We will wake her up and start on CPAP and see if we can get her extubated. Will need ENT to review any nosebleed prior to extubation to be sure it would be safe to remove the tube. 12/27/2016 patient tolerating CPAP. Near ready for extubation. Await word from ENT on whether her bleeding is controlled. 12/28/2016 no further bleeding from her nose. Packing is out. She tolerated about an hour and a half of CPAP yesterday and then became tachypneic. Will try again this morning. Should be able to get her extubated. Will use some Haldol and stop the propofol 12/29/16 patient had 2 different episodes of ventricular tachycardia. She had a code. She had a cardiac catheterization with no significant coronary disease found. She is now on amiodarone and pressures. Her chest x-ray looks good. ABGs look good. She has been started on Plavix. Need to watch for any further bleeding from surgical site. Certainly not ready for extubation at this point. We will hold weaning until cardiac rhythm problems are stable. Exam (Progress Note) - Constitutional Vitals: Period Temp Pulse Resp BP Sys/Tavera Pulse Ox Last 24 Hr 97.0 F-99.0 F 60-105 10-40 70-167/39-88 94-100 Exam: Patient is sedated on the ventilator. Nasal passages appear clear with no active bleeding. Orotracheal tube in place. Vital signs normal, but patient is on dopamine and Levophed. Pupils react to light. Chest sounds clear. Heart normal rate rhythm no murmurs. Abdomen soft nontender no masses. Bowel sounds present. Extremities no clubbing cyanosis edema. Results - Labs CBC & BMP: 12/29/16 Unknown 12/29/16 03:36 Lab Results: I have reviewed the past 24 hour labs - Diagnostic Findings Procedure: Chest x-ray: image reviewed by me (Lungs essentially clear. ET tube in good position.) Assessment and Plan (1) Pansinusitis Status: Acute Assessment and plan: She is postop fiberoptic sinus surgery. She had some bleeding postoperatively requiring reintubation. She is on broad-spectrum antibiotics. Will need ENT to tell us when they feel it is safe to extubate from a standpoint of bleeding. PT/INR was hyper prolonged initially and is near normal now. 12/26/2016 status post FESS. Watch for nosebleed. 12/27/2016 post surgery. Should be improved. Continuing antibiotics. 12/28/2016 status post FESS. No further bleeding. On empiric antibiotics. 12/29/16 again she is postop fiberoptic endoscopic sinus surgery. No active bleeding. Current Visit: Yes (2) Postop sinus surgery Status: Chronic Assessment and plan: Patient on the ventilator after being reintubated in the recovery room because of bleeding. 12/26/2016 had some bleeding postop. Need this rechecked before extubation. 12/27/2016 does not appear to be having any further bleeding. However await word from ENT before considering extubation to protect her airway. 12/28/2016 again no further bleeding. Current Visit: Yes (3) Severe hypertension Status: Acute Assessment and plan: Blood pressure 185/85. Patient not getting oral blood pressure medications. We will see if we can control this with a labetalol infusion. 12/26/2016 blood pressure well controlled with labetalol infusion 12/27/2016 blood pressure well controlled 12/28/2016 blood pressure well controlled. Systolic pressure around 100. 12/29/16 blood pressures now requiring support with Levophed and dopamine. Current Visit: Yes (4) Nonischemic cardiomyopathy Status: Chronic Assessment and plan: I do not see an echocardiogram at this point. 12/26/2016 defer to cardiology. 12/28/2016 does not appear to be in congestive heart failure 12/29/16 had episodes of ventricular tachycardia presumably related to this. Electrolytes have not been bad, she was not hypoxemic. Current Visit: Yes (5) Chronic atrial fibrillation Status: Chronic Assessment and plan: Rate is controlled. She is in chronic atrial fib. Unable to anticoagulate due to bleeding from sinus surgery. 12/26/16 rate is controlled 12/27/2016 atrial fibrillation with controlled rate 12/28/2016 rate is controlled. Current Visit: Yes (6) Chronic anticoagulation Status: Chronic Assessment and plan: She was hyper prolonged on admission on Coumadin. Will need anticoagulants what she is over the perioperative period 12/26/2016 INR still slightly prolonged at 1.8. 12/27/2016 recheck INR. We will give her vitamin K 12/28/2016 INR 1.3 now. No active bleeding. 01/06/17 presently on Plavix. Coumadin being held. Current Visit: Yes (7) Ventricular tachycardia Status: Acute Assessment and plan: She has had 2 events of this. Presently on amiodarone. Cardiology following. Magnesium potassium calcium all okay. Adequately oxygenated. Not acidotic. Certainly cannot wean her from the ventilator as yet. Current Visit: Yes Specialty Discharge - Follow Up or Referrals Follow up with: Ediosn Tenorio MD [Physician] - 01/21/17 9:30 am
--- NOTE | 2016-12-29 07:21 | Family Practice Progress Note ---
Family Practice - PN: Subj Interval history: Patient had a stormy night last night and had V. tach/V. fib requiring cardioversion. She is presently on amiodarone drip and her rhythm has stabilized somewhat. Patient had an acute ischemic event yesterday leading to V. fib was carried to the [place] and apparently had no significant coronary artery stenosis. She was noted to have an EF of 10%. Patient is responding when off propofol. She is sedated this morning when I came to see her. Repeat chest x-ray this morning showed no acute abnormality. Hopefully we can start the weaning process. Exam (Progress Note) - Constitutional Vitals: Period Temp Pulse Resp BP Sys/Tavera Pulse Ox Last 24 Hr 97.0 F-99.0 F 60-105 10-40 70-167/39-88 94-100 Exam: Objectively well-developed black female who is presently on ventilator. Her vital signs are stable. She has had no further V. fib or V. tach since beginning amiodarone. Cardiovascular: Heart rates are regular without murmurs or gallops Respiratory: Lungs clear to auscultation bilaterally. Abdomen: Abdomen soft and there is no response to palpation. Neuro: Patient is presently sedated. Results - Labs CBC & BMP: 12/29/16 Unknown 12/29/16 03:36 Lab Results: I have reviewed the past 24 hour labs - Diagnostic Findings Procedure: Chest x-ray: report reviewed by me (Patient has cardiomegaly) Assessment and Plan (1) Intractable headache Status: Acute Assessment and plan: 12/16/2016: A CRP and sed rate have been ordered. She does have a history of recent sinusitis and I am going to place her on IV Levaquin. 12/17/2016: I am going to consult Dr. López, Dr. Tenorio is also been consulted. 12/21/2016: Patient's headache has resolved. 12/22/2016: Patient is having recurring headache this morning. 12/23/2016: Patient's headache has certainly improved. CT scan shows persistent sinusitis changes. I am going to add Bactrim. 12/24/2016: Patient headache is returned with a vengeance. Her INR is also up to 5.4. I am going to hold her Coumadin for 2 days repeat her INR Wednesday. We will asked Dr. all to see her again. 12/28/2016: Patient is postop endoscopic sinus surgery and appears to be doing well. We are working in getting her off the ventilator. 12/29/2016: Patient's not had any epistaxis for the last 2 days since her surgery. Obvious her cardiac problems are taking priority now Current Visit: Yes (2) Abnormal CT of brain Status: Acute Assessment and plan: 12/16/2016: We will consult Dr. Tenorio. The changes described Dr. Lopez were not readily apparent to me and she has no lateralizing signs or symptoms that I can elicit. 12/29/2016: Computer will not let me add another complaint. She is obviously had cardiac arrest, she has dilated cardiomyopathy and elevated serum troponin. Patient requires nutrition so will begin enteral feedings. I will discuss her condition with her daughter. Her prognosis is very poor. Current Visit: Yes Quality Measures - Stroke Onset of Symptoms Date: 12/16/16 Onset of Symptoms Time: 05:30 Specialty Discharge - Follow Up or Referrals Follow up with: Edison Tenorio MD [Physician] - 01/21/17 9:30 am
--- NOTE | 2016-12-29 07:30 | XRay Report ---
History: Shortness of breath Date: 12/29/2016 Study: Chest x-ray AP portable Comparison exam: 12/28/2016 The endotracheal and nasogastric tubes are stable in position. The right IJ central line is unchanged. There is continued cardiomegaly. The mediastinal contours are stable. The pulmonary vasculature is not engorged. A right subclavian dual lead transvenous pacemaker is in place and unchanged. There is no new or worsening infiltrate. Shallow inspiration. There is no gross pleural effusion. Osseous structures are unchanged. Impression: Cardiomegaly without overt CHF. Shallow inspiration PROCEDURE INTERPRETED AT [facility] DEPARTMENT OF RADIOLOGY Final Report Signed by: Dr. Anabella Sanchez
--- NOTE | 2016-12-29 08:42 | Cardiology Progress Note ---
Assessment and Plan (1) Paroxysmal atrial fibrillation Status: Chronic Assessment and plan: Patient has a history of chronic atrial fibrillation. Historically, patient has been anticoagulated with Coumadin. Postoperatively, this has been held due to complications with postoperative epistaxis. After discussing with Dr. Pike , we will initiate aspirin and Eliquis to prevent thromboembolic events. Further recommendations to follow per Dr. Pike. Current Visit: Yes (2) Postop sinus surgery Status: Chronic Assessment and plan: Dr. López is following. Patient is postop day #5 today. Current Visit: Yes (3) Suspected sleep apnea Status: Acute Assessment and plan: Dr. Kelly has evaluated the patient. He plans to follow-up next week or in the sleep clinic. Current Visit: Yes (4) Dementia Status: Chronic Current Visit: Yes (5) Nonischemic cardiomyopathy Status: Chronic Assessment and plan: Ejection fraction of 10% noted per heart cath yesterday. Will adjust patient's medication regimen when her blood pressure will allow. Current Visit: Yes (6) History of cardiac pacemaker Status: Chronic Current Visit: No (7) long-standing hypertension Status: Chronic Assessment and plan: Patient is now hypotensive. We will hold antihypertensive medications at this time. Will attempt to wean patient off of Levophed as she tolerates. Current Visit: No (8) Hypotension Status: Acute Assessment and plan: Patient is currently requiring vasopressors. Will attempt to wean patient off of the Levophed as she tolerates. Continue dopamine for blood pressure support. Hold antihypertensives. Current Visit: Yes (9) Elevated serum creatinine Status: Acute Assessment and plan: Patient's creatinine has risen overnight to 2.4. I will hold patient's lisinopril at this time. Will defer further management of this to attending. Current Visit: Yes (10) Ventricular tachycardia Status: Acute Current Visit: Yes (11) Ventricular tachycardia Status: Acute Assessment and plan: Patient had 2 episodes of ventricular tachycardia overnight that required defibrillation. Patient has been loaded with amiodarone and has had no further V. tach has been negative. Will continue the amiodarone infusion at this time. Further plan and addendum to follow per Dr. Pike. Current Visit: Yes Cardiology - PN: Subj Interval history: Bag Maker: Dr. Owen Ms. Zamora is a 71 year old -[place]aur[place] female with a history of hypertension, chronic atrial fibrillation, chronic anticoagulation, and nonischemic cardiomyopathy, recent TIA. She is status post [employer] dual- chamber pacemaker November 06, 2003 for symptomatic bradycardia. She is status post generator change and lead testing November 26, [address] Swartz. She is status post CVA December 2010. She was admitted to the hospital on 12/16/2016 with severe headache and abnormal CT of the brain. She she has been seen by ENT and is being treated for sinusitis, trigeminal neuralgia pain, and intractable headache. She is planned for an elective sinus surgery in the future but due to her continued problems, this is planned for 12/25/16. Her INR was elevated upon admission, she received FFP. She underwent functional endoscopic sinus surgery performed by Dr. del real on 12/25/16. She has done well post surgery the exception of moderate postoperative epistaxis. Cardiology was consulted for preop evaluation. Yesterday, patient had episodes of ventricular tachycardia and V fib and subsequently had to be defibrillated. EKG revealed significant ST elevation and patient was taken emergently to the [facility] per Dr. Oseguera with the following impressions noted: Assessment: 1. No high-grade epicardial stenosis 2. Long smooth tapering mid to distal anterior LAD abnormality that is smooth 3. Acute cardiomyopathy, nonischemic, decompensated with end diastolic pressure of 19 4. Cardiogenic shock 5. EF:10% with severe mid to distal anterior and apical and distal inferior profound hypokinesis the basal and mid inferior smith are relatively preserved compared to remainder the ventricle Post heart catheterization patient was transferred back to the ICU in stable condition. Patient continues to be ventilated and sedated in the ICU. She did not have any focal obstructive coronary artery disease to explain her code/ arrhythmia. Her left ventricular function is severely reduced compared to her echo just a few days ago. At this point, the etiology of her acute decompensation is unclear. She could have had a transient thrombus or transient spasm. Overnight, patient had 2 episodes of ventricular tachycardia and required defibrillation. Amiodarone drip was then initiated. She has had no further arrhythmias since being loaded with amiodarone. Currently she is requiring dopamine and Levophed for blood pressure support. Recommend titrating Levophed off as blood pressure tolerates. Patient has a history of chronic atrial fibrillation. In the past she was taking Coumadin for anticoagulation. This was on hold due to postoperative epistaxis. Eliquis and aspirin will be initiated today in order to prevent further thromboembolic events. Creatinine this morning is elevated at 2.4. Creatinine clearance calculated at 32.8. Troponin of 7.5 noted this morning. We will continue to cycle these to ensure that these are in fact trending down. ST elevation has resolved on this morning's EKG. Vital signs are stable. Patient is currently in atrial fibrillation with a controlled ventricular response. Continue to monitor patient in the ICU. Further plan and addendum to follow per Dr. Pike. Exam (Progress Note) - Constitutional Vitals: Period Temp Pulse Resp BP Sys/Tavera Pulse Ox Last 24 Hr 97.0 F-99.0 F 60-105 10-40 70-167/39-88 94-100 General appearance: other (Patient is intubated and sedated in the ICU.) - Head Head exam: Present: normal inspection, normocephalic, atraumatic - ENT ENT exam: Present: other (ET tube noted.) - Neck Neck exam: Present: normal inspection - Respiratory Respiratory exam: Present: clear to auscultation bilaterally. Absent: rales, rhonchi, stridor, wheezes - Cardiovascular Cardiovascular exam: Present: irregular rhythm (Atrial fibrillation with a controlled ventricular response). Absent: gallop, rubs - GI/Abdominal GI/Abdominal exam: Present: hypoactive bowel sounds, soft. Absent: distended, firm, mass - Extremities Exam Extremities exam: Present: other (Right groin is soft without bleeding, hematoma and bruit. Distal pulses present.). Absent: normal capillary refill, edema - Neurological Exam Neurological exam: Present: other (Unable to adequately assess due to patient being sedated on the ventilator.) - Psychiatric Psychiatric exam: Present: other (Unable to adequately assess due to patient being sedated on the ventilator.) - Skin Skin exam: Present: normal color, warm, dry Result/EKG - Labs CBC & BMP: 12/29/16 Unknown 12/29/16 03:36 Lab Results: I have reviewed the past 24 hour labs Labs: Laboratory Results - last 24 hr 12/28/16 12/28/16 12/28/16 15:24 15:24 15:24 WBC RBC Hgb Hct MCV MCH MCHC RDW Plt Count MPV Neut % (Auto) Lymph % (Auto) Thurston % (Auto) Eos % (Auto) Baso % (Auto) Neut # (Auto) Lymph # (Auto) Thurston # (Auto) Eos # (Auto) Baso # (Auto) Immature Gran % Nucleated RBC % Immature Gran # Nucleated RBCs # INR 1.3 PT Patient/Control Mix 14.4 D-Dimer, Quantitative Circ Anticoag PTT 24.5 ABG pH ABG pCO2 ABG pO2 ABG HCO3 ABG Total CO2 ABG O2 Saturation ABG Base Excess Hemoglobin Hematocrit Sodium 144 Potassium 4.6 Chloride 114 H Carbon Dioxide 14 L Anion Gap 20.6 H BUN 9 Creatinine 1.70 H GFR Calculation 37 BUN/Creatinine Ratio 5.00 L Glucose 109 H Calculated Osmolality 285.8 Calcium 8.6 Magnesium 2.2 Total Bilirubin AST ALT Alkaline Phosphatase Total Creatine Kinase 898 H D CK-MB (CK-2) 3.2 Troponin I 0.029 Total Protein Albumin Globulin Albumin/Globulin Ratio Blood Type Antibody Screen 12/28/16 12/28/16 12/29/16 15:24 15:30 00:15 WBC RBC Hgb Hct MCV MCH MCHC RDW Plt Count MPV Neut % (Auto) Lymph % (Auto) Thur[place] % (Auto) Eos % (Auto) Baso % (Auto) Neut # (Auto) Lymph # (Auto) Thur[place] # (Auto) Eos # (Auto) Baso # (Auto) Immature Gran % Nucleated RBC % Immature Gran # Nucleated RBCs # INR PT Patient/Control Mix D-Dimer, Quantitative Circ Anticoag PTT ABG pH 7.427 ABG pCO2 19.6 L* ABG pO2 166.0 H ABG HCO3 12.6 L ABG Total CO2 13.2 L ABG O2 Saturation 98.2 ABG Base Excess -9.5 L Hemoglobin 12.4 Hematocrit 36.0 L Sodium Potassium 4.0 4.6 Chloride Carbon Dioxide Anion Gap BUN Creatinine GFR Calculation BUN/Creatinine Ratio Glucose 132 H Calculated Osmolality Calcium Magnesium 1.8 Total Bilirubin AST ALT Alkaline Phosphatase Total Creatine Kinase CK-MB (CK-2) Troponin I Total Protein Albumin Globulin Albumin/Globulin Ratio Blood Type O POSITIVE Antibody Screen Negative 12/29/16 12/29/16 12/29/16 03:34 03:36 03:50 WBC RBC Hgb Hct MCV MCH MCHC RDW Plt Count MPV Neut % (Auto) Lymph % (Auto) Thurston % (Auto) Eos % (Auto) Baso % (Auto) Neut # (Auto) Lymph # (Auto) Thur[place] # (Auto) Eos # (Auto) Baso # (Auto) Immature Gran % Nucleated RBC % Immature Gran # Nucleated RBCs # INR PT Patient/Control Mix D-Dimer, Quantitative Circ Anticoag PTT ABG pH 7.380 ABG pCO2 24.7 L ABG pO2 106.2 H ABG HCO3 14.3 L ABG Total CO2 15.0 L ABG O2 Saturation 97.2 ABG Base Excess -9.2 L Hemoglobin Hematocrit Sodium 137 Potassium 4.9 Chloride 107 Carbon Dioxide 19 L Anion Gap 15.9 H BUN 13 Creatinine 2.40 H GFR Calculation 24 BUN/Creatinine Ratio 5.00 L Glucose 112 H Calculated Osmolality 273.8 Calcium 8.6 Magnesium 3.0 H Total Bilirubin 0.40 AST 57 H ALT 21 Alkaline Phosphatase 67 Total Creatine Kinase CK-MB (CK-2) Troponin I 7.550 H D Total Protein 5.8 L Albumin 2.6 L Globulin 3.2 Albumin/Globulin Ratio 0.8 L Blood Type Antibody Screen 12/29/16 12/29/16 Unknown Unknown WBC 13.6 H D RBC 3.98 Hgb 10.8 L Hct 35.8 MCV 89.9 MCH 27 MCHC 30.2 L RDW 14.9 Plt Count 194 MPV 10.2 Neut % (Auto) 58.7 Lymph % (Auto) 25.6 Thurston % (Auto) 12.5 Eos % (Auto) 2.6 Baso % (Auto) 0.2 Neut # (Auto) 8.0 H Lymph # (Auto) 3.5 Thurston # (Auto) 1.7 H Eos # (Auto) 0.4 Baso # (Auto) 0.0 Immature Gran % 0.4 Nucleated RBC % 0.0 Immature Gran # 0.06 Nucleated RBCs # 0.00 INR PT Patient/Control Mix D-Dimer, Quantitative 6.9 Circ Anticoag PTT ABG pH ABG pCO2 ABG pO2 ABG HCO3 ABG Total CO2 ABG O2 Saturation ABG Base Excess Hemoglobin Hematocrit Sodium Potassium Chloride Carbon Dioxide Anion Gap BUN Creatinine GFR Calculation BUN/Creatinine Ratio Glucose Calculated Osmolality Calcium Magnesium Total Bilirubin AST ALT Alkaline Phosphatase Total Creatine Kinase CK-MB (CK-2) Troponin I Total Protein Albumin Globulin Albumin/Globulin Ratio Blood Type Antibody Screen Quality Measures - Stroke Onset of Symptoms Date: 12/16/16 Onset of Symptoms Time: 05:30 Specialty Discharge - Follow Up or Referrals Follow up with: Edison Tenorio MD [Physician] - 01/21/17 9:30 am
[2016-12-29] MEDS ORDERED: ASCORBIC ACID 500 MG TABLET PO SCH (09:00)
[2016-12-29] MEDS ORDERED: APIXABAN 5 MG TABLET PO SCH (09:00)
[2016-12-29] MEDS ORDERED: ASPIRIN EC 81 MG TABLET PO SCH (09:00)
[2016-12-29] MEDS ORDERED: CLOPIDOGREL 75 MG TABLET PO SCH (09:00)
[2016-12-29] MEDS: CALCIUM (CARBONATE)/VITAMIN D 500 MG-200 UNIT TABLET PO SCH (09:10)
[2016-12-29] MEDS: levETIRAcetam 250 MG TABLET PO SCH (09:10)
[2016-12-29] MEDS: sulfaSALAzine 500 MG TABLET PO SCH (09:10)
[2016-12-29] MEDS: MEMANTINE 5 MG TABLET PO SCH (09:11)
[2016-12-29] MEDS: POTASSIUM CHLORIDE 20 MEQ/15 ML UDCUP PER TUBE SCH (09:11)
[2016-12-29] MEDS: SULFAMETHOX/TRIMETHOPRIM 800-160 MG TABLET PO SCH (09:12)
[2016-12-29] MEDS: SOTALOL 80 MG TABLET PO SCH (09:12)
[2016-12-29] MEDS: DOCUSATE SODIUM 100 MG CAPSULE PO SCH (09:13)
[2016-12-29] MEDS: CETIRIZINE 10 MG TABLET PO SCH (09:13)
[2016-12-29] MEDS: PANTOPRAZOLE 40 MG VIAL IV SCH (09:14)
[2016-12-29] MEDS: FUROSEMIDE 20 MG/2 ML VIAL IV SCH ×2 (09:25→18:48)
[2016-12-29] MEDS: FLUTICASONE 50 MCG NASAL SPRAY 16 GM BOTTLE BOTH NARES SCH (09:35)
[2016-12-29] MEDS: LEVOFLOXACIN INJ 750 MG in PREMIX 1 EACH IV SCH (09:35)
[2016-12-29] MEDS: LINEZOLID INJ 600 MG in PREMIX 1 EACH IV SCH (09:36)
--- NOTE | 2016-12-29 09:36 | EKG Report ---
Stationary ECG Study [facility] Test Date: 12/29/2016 1:43:41 AM Pat Name: KATHY SALMON Department: Room: 115 Gender: F Court Officer: Kalee Lincoln RN : 1945 Requested by: Jett Barlow Order Number: [id number] Reading MD: ESA DEMPSEY Intervals [place] Rate: 65 P: 99 MN: 246 QRS: 109 QRSD: 77 T: 111 QT: 416 QTc: 427 Interpretive Statements ELECTRONIC ATRIAL PACEMAKER ELECTRONIC VENTRICULAR PACEMAKER -- CONTOUR ANALYSIS BASED ON INTRINSIC RHYTHM MARKED RIGHT AXIS DEVIATION LOW QRS VOLTAGE IN PRECORDIAL LEADS ANTEROLATERAL MYOCARDIAL INFARCTION, SUBACUTE Electronically Signed On 12-29-16 16:12:34 CDT by ESA DEMPSEY [email or web address]
[2016-12-29] MEDS: MAGNESIUM OXIDE 400 MG TABLET PO SCH (09:47)
[2016-12-29] MEDS: CARVEDILOL 6.25 MG TABLET PO SCH (09:47)
[2016-12-29 11:31] LABS: CKMB % 0.9 %
[2016-12-29 11:33] LABS: Troponin I Only 5.24 NG/ML (0.00-0.045)
[2016-12-29] MEDS: PROPOFOL 1,000 MG/100 ML BOTTLE IV SCH ×2 (11:39→18:48)
[2016-12-29] MEDS: HALOPERIDOL 5 MG/ML AMP IV SCH (11:44)
[2016-12-29] MEDS: predniSONE 1 MG TABLET PO SCH (12:46)
--- NOTE | 2016-12-29 15:08 | ECHO Report ---
Paz Zamora Exam Date: 12/28/2016 15:57 Referring Physician: Technologist: Age: 71 Ht (in): Wt (lb): Gender: F Exam Location: [facility] Echo Indications: limited study, Post Cardia arrest BP: / HR: 79 Rhythm: Sinus Technical Quality: Technically difficult study IMPRESSIONS This was an emergent bedside echocardiogram done in the CCU status post cardiac arrest. It is a very limited study. The echo shows a new anteroapical wall motion abnormality with a severely reduced left ventricular systolic function. No pericardial effusion is identified. Valvular function is grossly normal. MEASUREMENTS (Male / Female) Normal Values FINDINGS Left Ventricle Right Ventricle Right Atrium Left Atrium Mitral Valve Aortic Valve Tricuspid Valve Pulmonic Valve Pericardium Aorta Jamir Pike (Electronically Signed) Final Date: 29 Dec 2016 15:08
--- NOTE | 2016-12-29 16:19 | Progress Note ---
Assessment and Plan - Time spent with patient Time spent with patient: Less than 30 minutes (1) Sinusitis Status: Inactive Assessment and plan: I recommend continuing current treatment as she notes some improvement. I would like to see her next week after discharge after she is over this acute exacerbation as we will likely need to look into at least a minimal sinus surgery such as a balloon sinus plasty with ethmoidectomy to help her underlying symptoms. She will need medical clearance for this which I will asked Dr. Mcgrath if he feels she is able to have surgery. I do not think that she needs surgery during this acute exacerbation but we will try to get it on the schedule within the next few weeks so that we do not have continued recurrences. Thank you very much for this consult and please notify me if there is any additional questions I will try to continue to follow this patient during her stay. 12/24/2016 We will try to get in touch with Dr. Mcgrath and cardiology I think that since she is not improving we should consider performing a functional endoscopic sinus surgery and opening up her sinuses so that she can start to improve ideally I had like to do this on a more elective basis when she is not acutely ill but at this point her acute illness and she may not be getting better any time in the near future and risk versus reward may be in the favor of performing the surgery sooner. I will try to contact Dr. Mcgrath and Dr. Hidalgo cardiology and get them to clear her if possible and rather not anything could be done to improve her INR 12/26/2016 postop day #1 status post functional endoscopic sinus surgery healing well with some continued epistaxis I discussed this with Dr. Devine and we felt it best to give her 1 more day prior to starting extubation because of the amount of continued epistaxis most likely from the continued coagulopathy and her chronic disease I am hopeful that tomorrow will be much better. 12/27/[address] Devine and she is no longer bleeding that we could start to wean and potentially extubate the patient she appears to be doing much better. He is in agreement with the above and will start this process today in hopes that she can be extubated today. 12/28/2016 we are still working on extubation hopefully this will be able to be done today will follow her up tomorrow currently the epistaxis is controlled 12/29/2016 unfortunately late yesterday and throughout the night she has had multiple cardiac episodes of unknown underlying etiology. This obviously takes precedence over ENT complaints and those appear to be healing well. I will continue to follow this patient Current Visit: No Qualifiers: Sinusitis location: pansinusitis Chronicity: chronic Qualified Code(s): J32.4 - Chronic pansinusitis (2) Trigeminal neuralgia pain Status: Acute Current Visit: Yes (3) Intractable headache Status: Acute Current Visit: Yes Family Medicine PN Sub Interval history: Stable from an ENT perspective healing well post stress obvious concern in presidents is her cardiac and pulmonology problems. Exam (Progress Note) - Constitutional Vitals: Period Temp Pulse Resp BP Sys/Tavera Pulse Ox Last 24 Hr 97.0 F-99.0 F 60-105 10-24 74-167/39-88 94-100 General appearance: over weight, other (Intubated on the ventilator) - Head Head exam: Present: normal inspection, normocephalic - ENT ENT exam: Present: normal exam, normal external ear exam, normal oropharynx, other (Obscured exam secondary to endotracheal intubation packing appears to be place but there is no epistaxis from an ENT standpoint she is healing well from surgery but there is obvious concern about her cardiac and pulmonary status) - Neck Neck exam: Present: normal inspection - Respiratory Respiratory exam: Present: other (Still on the ventilator difficult to wean possibly secondary to cardiology problems) - Cardiovascular Cardiovascular exam: Present: other (She continues to have episodes throughout last night and yesterday with V. fib and V. tach are being taken care of) - GI/Abdominal GI/Abdominal exam: Present: soft - Neurological Exam Neurological exam: Present: other (Unable to assess intubated and sedated) - Psychiatric Psychiatric exam: Present: other (Unable to assess ventilated sedated) - Skin Skin exam: Present: normal color, warm Results - Labs CBC & BMP: 12/29/16 Unknown 12/29/16 03:36 Lab Results: I have reviewed the past 24 hour labs Quality Measures - Stroke Onset of Symptoms Date: 12/16/16 Onset of Symptoms Time: 05:30 Specialty Discharge - Follow Up or Referrals Follow up with: Edison Tenorio MD [Physician] - 01/21/17 9:30 am
[2016-12-29] MEDS: DOPamine 800 MG/250 ML PREMIX IV SCH (17:05)
[2016-12-29] MEDS ORDERED: NOREPINEPHRINE 4 MG/4 ML VIAL IV ONE (17:32)
[2016-12-29] MEDS ORDERED: NITROGLYCERIN 2% OINT 1 INCH/GM PACK TOP SCH (18:04)
[2016-12-29 19:08] VITALS: BP 50/36
--- NOTE | 2016-12-30 07:21 | Discharge Summary ---
Hospital Course - Hospital Course Hospital Course: Patient is a 71-year-old black female who presents emergency room with intractable headache and confusion. She was found to have a new abnormality on her CT scan of her brain. Patient was admitted to my services and seen in consultation with Dr. Tenorio. Patient could not undergo MRI due to her pacemaker. Patient continued to have rather severe headaches and was found to have pansinusitis. This was treated with IV antibiotics and steroids. She was seen in consultation by Dr. Cedric López that she failed to improve. Patient headaches became more severe and she continued to have intense discomfort and was in obvious agony. I discussed the situation with her daughter and though I was reluctant to proceed with surgery due to her multiple medical problems I did not see an alternative. Her daughter was agreeable. Patient was taken to the operating room and underwent endoscopic sinus surgery. She was maintained on the ventilator postop she did have epistaxis. Her Coumadin had been held and she was given fresh frozen plasma and vitamin K prior to her procedure. Patient's condition seemed to improve gradually than on 12/28/2016 she suffered a cardiac arrest. Patient was in ventricular fibrillation. Patient was noted to have what appeared to be ischemic changes in her lateral precordial leads. She was seen in the intensive care unit by Dr. Jamir Pike who felt she needed emergent left heart catheterization. Patient's angiography revealed no significant stenosis but she was noted to have an ejection fraction of 15%. Patient was placed on dobutamine but had more ventricular arrhythmias. She eventually was placed on Levophed and dopamine and her blood pressure continued to wane. On 12/29/2016 I discussed her situation with her daughters and they elected to make her a DNR. Patient's blood pressure continued to plummet and she had a cardiac arrest shortly thereafter. Family was at the bedside. Diagnosis - Discharge Diagnosis (1) Intractable headache Status: Acute (2) Abnormal CT of brain Status: Acute (3) Cardiogenic shock Status: Acute Specialty Discharge - Follow Up or Referrals Follow up with: Edison Tenorio MD [Physician] - 01/21/17 9:30 am Discharge Plan - Discharge Data Disposition: - Discharge Medications No Action Magnesium Oxide [Magox 400] 400 mg PO DAILY sulfaSALAzine [Sulfasalazine] 1,000 mg PO BID Sotalol HCl [Betapace AF] 160 mg PO BID predniSONE [[place]] 3 mg PO 1200 Montelukast Tab [Singulair Tab] 10 mg PO BEDTIME Omeprazole 20 mg PO DAILY HYDROcodone/ACETAMIN 5-325 [Sylvester 5-325] 1 tablet PO Q6H PRN PRN Reason: Pain Furosemide Tab [Lasix Tab] 40 mg PO BID dilTIAZem HCl [Diltiazem HCl] 60 mg PO ACHS Cyanocobalamin (Vitamin B-12) [Liquid B12] 1,000 mcg IM Q30D Warfarin [Coumadin] 2 mg PO SUTUWETHFRSA Cetirizine Tab [ZyrTEC Tab] 10 mg PO DAILY Atorvastatin [Lipitor] 20 mg PO BEDTIME Adalimumab [Humira Pen] 40 mg SUBCUT Q14D Calcium (Carb)/Vit D 500-200 [Oscal 500 + D] 1 tablet PO DAILY Fluticasone 50 Mcg Nasal Harvey [Flonase Nasal Harvey] 1 spray BOTH NARES DAILY PRN PRN Reason: Allergy Symptoms levETIRAcetam [Levetiracetam ER] 750 mg PO BID Lisinopril 10 mg PO DAILY Potassium Chloride Cap/Tab [K Dur] 60 meq PO BID Carvedilol [Coreg] 6.25 mg PO DAILY cloNIDine HCl [Clonidine HCl] 0.1 mg PO BEDTIME Acetaminophen Tab [Tylenol Tab] 650 mg PO Q6H PRN #0 tablet PRN Reason: Fever > 100.4 Or Headache Warfarin Sodium 1 mg PO MO - Follow Up or Referral Follow Up: Edison Tenorio MD [Physician] - 01/21/17 9:30 am - Forms/Instructions Forms: Acute Care Work/School Release Exam - Constitutional Vitals: Period Temp Pulse Resp BP Sys/Tavera Pulse Ox Last 24 Hr 98.7 F-99.0 F 60-65 12-29 50-119/36-70 95-99 Discharge Results Procedures and tests throughout hospitalization: Pending Orders 12/29/16 15:29 Urine Culture Stat 12/29/16 15:54 Blood Culture Stat Labs on day of discharge: Labs from last 24 hours 12/29/16 10:47 Total Creatine Kinase 709 H D CK-MB (CK-2) 6.5 H CK and CKMB Interp 0.9 Troponin I 5.240 H D DS: Provider Date of admission: 12/16/16 10:23 Primary care physician: Daniel Mcgrath MD Attending physician on admission: Daniel Mcgrath MD Consults: 12/16/16 12:32 Consult to Case Mgmt/Social Srvs [CONS] Routine Reason for Case Mgmt/Social Srvs: Discharge Planning Consult to Physician [CONS] Routine Comment: new stroke, dementia Consulting Provider: Edison Tenorio Person Notified: alexandra Date Notified: 12/16/16 Time Notified: 15:42 12/16/16 12:37 Consult to Pharmacy [CONS] Routine Reason for Pharmacy Consult: Adjust Meds Renal Funct 12/16/16 17:06 Consult to Occupational Therapy [CONS] Routine Reason for Occupational Therapy: Evaluate and Treat Consult to Physical Therapy [CONS] Routine Reason for Physical Therapy: Evaluate and Treat 12/16/16 17:57 Consult to Dietitian [CONS] Routine Reason for Dietitian: Dietary Consult Consult Comment: recent weight loss, decreased appetite 12/17/16 07:43 Consult to Physician [CONS] Routine Comment: Consulting Provider: Cedric López Person Notified: CEM Date Notified: 12/17/16 Time Notified: 08:40 12/24/16 07:46 Consult to Physician [CONS] Routine Comment: Consulting Provider: Cedric López Person Notified: [email or web address] Date Notified: 12/24/16 Time Notified: 08:10 12/24/16 14:14 Consult to Physician [CONS] Routine Comment: cardiac clearance pt of plavac Consulting Provider: Ac Hidalgo Person Notified: [email or web address] Date Notified: 12/24/16 Time Notified: 14:34 12/24/16 19:40 Consult to Physician [CONS] Routine Comment: Consulting Provider: Sobia Kelly Consulting Provider Notified: No Consult Notification Comment: Patient is overweight, has p atrial rib, nonischemic cardiomyopathy, hypertension, and her daughter notes that she has apneic spells at night when she is sleeping. Also she sleeps much during the day. She denies snoring. She seems to have a small oropharynx. Please evaluate for the possibility of either central or obstructive sleep apnea. 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
--- NOTE | 2017-01-04 11:21 | Physician Query Form ---
CLICK EDIT DOCUMENT TO SELECT QUERY ANSWER --> OK --> SIGN Minerva Solomon RN Clinical Recruiter Manager W) [phone] (f) [phone] [email or web address]: Make your selection(s) from the choices in EACH section by typing an "x" and enter comments in the comment section. Please use your independent medical judgment in providing your response. This request does not imply that any particular answer is desired or expected. CLINICAL INDICATORS: (Providers should not edit this section) Based on documentation of "she did have epistaxis. Her Coumadin had been held and she was given fresh frozen plasma and vitamin K prior to her procedure" "Postoperatively she was extubated but had some bleeding and so they reintubated her to protect her airway." Transfused 3FFP, and 3 Cryoprecipitate. Based on the above, could you clarify the appropriate diagnosis, if significant , that supports the above abnormalities and additional evaluation, monitoring, and/or treatment rendered: ( ) Treated for hemorrhage with extrinsic circulating anticoagulant ( ) NOT treated for hemorrhage with extrinsic circulating anticoagulant. (x ) Other, please specify: ( ) Clinically unable to determine COMMENTS: Use of terms such as suspected, likely, or probable (associated with a specific diagnosis that is being evaluated, monitored, or treated as if it exists) are acceptable and can be restated in the discharge summary if not ruled out. MTDD
== END 2016-12-29 18:10 | disposition expired | DRG 133 ==
LOC: EDBD → EDUNIT# → N.ED 08:36 → N.EDINP 10:23 → N.2E 15:35 → N.CC 12-19 17:26 → N.2E 12-21 14:27 → N.ICU 12-25 14:21
PROVIDERS: ADMIT Family Medicine; ATTEND Family Medicine
PROC: CLCCHCL (ICD-10-PCS; 2016-12-28 19:45)